=== PATIENT | male | born 1955 | race African-American/Black ===

== ENCOUNTER 2017-02-23 21:24 | Inpatient (IN) | payer SELFPAY ==
[~2017-02-23] VITALS: Ht 172.7 cm; Wt 79.1 kg
[~2017-02-23 21:24] MED LIST: INSU100I3 SQ; INSU3INS3 SQ; LISI10TA7 PO
--- OUTSIDE RECORDS SUMMARY | 2017-02-23 21:29 | XMS REPORT | Continuity of Care Document ---
Author Author [facility] Organization [facility] Address Unknown Phone Unavailable Support Name Relationship Address Phone JEANETTE GONZALEZ APRN Caregiver [address] [place] [address] Unavailable JONATHAN HARMAN MD Caregiver [address] [place] [address] [place] [address] Unavailable JOSE JUAN Next Of Kin Unknown [phone] Insurance Providers Guarantor Gini Juan Address [address] [place] [address] Email [email or web address] Policy Number [id number] Subscriber's Name Gini Juan Relationship 18 Self Group Number [id number] Advance Directives Directive Response Recorded Date/Time Dr Beltre Resuscitation Status Full Code 12/03/16 1:45pm Resuscitation Documents on File No 12/06/16 7:33am DPOA for Healthcare Only No 12/06/16 7:33am Living Will No 12/06/16 7:33am Problems No problem information available. Medications Current Home Medications Medication Dose Units Route Directions Days Qty Instructions Start Date Insulin Aspart (Novolog Flexpen) 1 Unit Pen 30 Unit Sub-Q 15 Min Before Meals 75 12/03/16 Insulin Glargine,Hum.rec.anlog (Lantus Solostar) 1 Unit Pen 40 Unit Sub-Q Bedtime 30 12/03/16 Lisinopril 10 Mg Tablet 1 Tab Oral Daily 30 12/03/16 Social History Social History Problem Response Recorded Date/Time Onset Date Status Reason for Hospitalization COLONOSCOPY 2016 9:55am Not Applicable Not Applicable Chewing Tobacco Status No 2016 7:23am Not Applicable Not Applicable Hx Substance Use No 2016 7:23am Not Applicable Not Applicable Hx Alcohol Use N QUIT 2016 7:23am Not Applicable Not Applicable Has the pt used tobacco in the last 12 months Yes 2016 7:23am Not Applicable Not Applicable Query Response Start Date Stop Date Smoking Status Former smoker Hospital Discharge Instructions Instructions: Care Instructions: I was in the hospital because (patient own words): COLONOSCOPY Discharge Diet: You may resume your usual diet. Discharge Activity: You may resume your usual activity. Follow Up Appointments: No specific follow-up appointment with Dr. Harman is necessary. You can call his office for any questions or concerns ([phone]). Dr. Harman's office will notify you of your results in about 2 weeks. Pending Lab / Results: Will be notified Patient Instructions: Do not drive, operate machinery, drink alcohol, or sign important papers for 24 hours. Expected Signs/Symptoms: You may have some gas discomfort. Notify Physician If: Contact Dr. Harman if you have a fever over 101 degrees, severe abdominal pain, or severe rectal bleeding. During Business Hours:: *In the event of an emergency, call 911 or seek medical care at the nearest emergency room.* During office hours, call Dr. Harman's office at [phone]. After Business Hours:: After hours, please call [facility] at [phone] and have the multiple spindle screw machine operator page Dr. Harman or the covering surgeon. Pain Management/Treatment: You should not have significant pain following the procedure. Wound/Incision Care: No wound care required. Condition at time of discharge: Good Plan of Care Discharge Date 12/06/16 10:20am Prescriptions See Medication Section Functional Status No functional status results. Allergies, Adverse Reactions, Alerts No known allergies. Immunizations Query Response on File Recorded Date/Time Hx Influenza Vaccination No 12/06/16 7:23am Hx Pneumococcal Vaccination No 12/06/16 7:23am Hx Influenza Vaccination No 12/06/16 7:23am Vital Signs Acute Vital Signs Vital Response Date/Time Temperature (Fahrenheit) 97.3 deg F (96.8 - 99.1) 2016 9:36am Temperature (Calculated Celsius) 36.29958 degrees C (36.0 - 37.3) 2016 9:36am Temperature Source Temporal 2016 9:36am Pulse Rate (adult) 92 bpm (60 - 100) 2016 10:20am Respiratory Rate 20 breaths/min (10 - 20) 2016 10:20am O2 Sat by Pulse Oximetry 97 % (90 - 100) 2016 10:20am Oxygen Delivery Method Room Air 2016 10:20am Blood Pressure 115/86 mm Hg 2016 10:20am Blood Pressure Source Automatic Cuff 2016 10:20am Height (Feet) 5 feet 2016 6:50am Height (Inches) 8.00 inches 2016 6:50am Weight (Kilograms) 82.900 kg 2016 6:50am Body Mass Index (BMI) 27.8 2016 6:50am Results Laboratory Results Test Name Result Units Flags Reference Collection Date/Time Result Date/ Time Comments Glucometer 268 mg/dL H 75-110 2016 7:03am 2016 7:09am Procedures Procedure Status Date Provider(s) X-ray exam of knee 1 or 2 Completed 11/12/16 Colonoscopy with polypectomy and biopsy Completed 12/06/16 JONATHAN HARMAN MD Encounters Encounter Location Arrival/Admit Date Discharge/Depart Date Attending Provider Departed [facility] 12/06/16 6:47am 12/06/16 10 :20am JONATHAN HARMAN MD Registered Clinic [facility] 11/12/16 7:31am JEANETTE GONZALEZ APRN
[2017-02-23] MEDS ORDERED: NITROGLYCERIN 0.4 MG SUBLINGUAL TABLET SL PRN (21:45)
[2017-02-23] MEDS ORDERED: ASPIRIN 81 MG CHEWABLE TABLET PO ONE (21:45)
--- NOTE | 2017-02-23 21:48 | ERPDOC ---
Departure Disposition Decision Date: February 24, 2017 Disposition Decision Time: 00:44 Disposition: 02 TO [facility] [place] Impression Impression Impression: Primary Impression: DKA (diabetic ketoacidoses) Diabetes mellitus type: type 1 Diabetes mellitus complication detail: without coma Qualified Codes: E10.10 - Type 1 diabetes mellitus with ketoacidosis without coma Additional Impressions: Pancreatitis Chronicity: acute Pancreatitis type: alcohol induced Acute pancreatitis complication: unspecified Qualified Codes: K85.20 - Alcohol induced acute pancreatitis without necrosis or infection Elevated troponin Alcohol abuse Acute renal failure (ARF) Acute renal failure type: unspecified Qualified Codes: N17.9 - Acute kidney failure, unspecified Severity: Critical Condition: Improved Seen By: Physician only Referrals: JEANETTE GONZALEZ APRN (Family) Problems/Meds/Labs Reviewed?: Yes Medications reviewed and manag: Yes Follow up care ordered?: Yes HPI - Chest Pain General Stated Complaint: CHEST PAIN, DIFF BREATHING Time Seen by Provider: 21:38 Source: patient Exam Limitations: no limitations HPI - Chest Pain Initial Comments 61yo man presents to the ER tonight with CP. Pt is an insulin dependent diabetic with a h/o HTN. He went on a manley (EtOH) 5 days ago, and has not taken his meds since then. Pt c/o cp, fast breathing, heartburn, and general malaise. Occurred At: home Onset/Timing: Gradual, Getting worse Duration: 1 week Pain/Severity Scale: Now & Worst: 8/10 Activities at Onset/Context: other Location: epigastric Quality: burning Modifying Factors: IMPROVES WITH: lying down Associated Symptoms: diaphoresis, fast HR, fatigue, heartburn, nausea/vomiting , shortness of breath Nitro Today/Relief: 0.4 mg x 1, provided by ED Aspirin Treatment Today: 81 mg x 4, provided by ED Hx of Similar Symptoms: No Allergies: Coded Allergies: No Known Allergies (Verified , 09/01/09) Viagra/ED med in past 36 hrs: No Past History Past Medical History Metabolic: diabetes, hypertension Vaccines Hx Influenza Vaccination: No Hx Pneumococcal Vaccination: No Social History Does patient use chewing tobac: No Second Hand Exposure: No Substance Use Type: does not use Last Drink: hours (ago) Review of Systems Constitutional Constitutional: fatigue ENMT Mouth/Throat: dry mouth Cardiovascular Cardiac: chest pain, dyspnea on exertion Rhythm/Rate: tachycardia Pulmonary Respiratory: tachypnea GI Upper Abdomen: nausea General: frequency All other Systems All Other Systems: Reviewed and Negative Physical Exam General General Nourishment: well nourished, well developed, appears stated age, adult , obese, acute distress General Body Habitus: disheveled Vitals and Pain Weight: Kilograms: Height (feet): 5 Height (inches): 8.00 Triage Pain Scale: RN VS reviewed by Provider: Yes Normal Exams: Head: Normocephalic w/o trauma Eyes: Pupils are PERRLA w/ EOMI, No scleral icterus, irritation ENMT: No facial trauma, nasal exudates, pharyngeal erythema Neck: Full range of motion, without adenopathy Lymphatic: No lymphadenopathy Musculoskeletal: No tenderness, or deformity noted Integumentary: No rashes, hives, or bruising noted Neurologic: Patient is alert, and oriented Psychiatric: Patient exhibits, appropriate attention Respiratory (brief) Respiratory: FOUND: clear all fofana, equal bilaterally, symmetrical, NOT FOUND : rales, wheezes Comments tachypnea Cardiovascular (brief) Cardiac: FOUND: regular rhythm, NOT FOUND: click, gallop, murmur, pedal edema, peripheral edema, regular rate (Tachy), rub Capillary Refill: <2 sec Pulses: all distal extremities, equal, strong Abdomen (brief) Abdominal Brief: FOUND: bowel normo active x4, soft, NOT FOUND: distended, hepatosplenomegaly, pulsatile mass, tender Differential Diagnoses Considering: Acute MT, Angina, Costochondritis, Esophageal Spasm, GERD, Pericarditis, Pneumothorax, Pneumonia, PSVT, Pulmonary Edema, Other (DKA; acute intoxication.) Progress Results/Orders Orders Procedure Category Date Status Time Cbc W/Auto LAB 02/23/17 Complete Diff-Reflex Manual 21:45 Bmp - Basic Metabolic LAB 02/23/17 Complete Panel 21:45 Probnp LAB 02/23/17 Complete 21:45 Troponin I W LAB 02/23/17 Complete Hemolysis Index 21:45 INR LAB 02/23/17 Complete 21:45 EKG EKG 02/23/17 Taken 21:45 Chest 1 View RAD 02/23/17 Taken 21:45 Iv Lock (Ed Only) EDM 02/23/17 Transmitted 21:45 Aspirin (Asa) PHA 02/23/17 Complete 21:45 Nitroglycerin PHA 02/23/17 In Process (Nitrostat) 21:45 Procalcitonin LAB 02/23/17 Complete 21:53 Lipase LAB 02/23/17 Complete 21:53 Magnesium LAB 02/23/17 Complete 21:53 Phosphorus LAB 02/23/17 Complete 21:53 Beta-Hydroxybutyrate LAB 02/23/17 Complete Blood 21:53 Nothing By Mouth (Ed EDM 02/23/17 Transmitted Only) 21:53 Normal Saline (Normal PHA 02/23/17 Complete Saline Iv) 21:53 Ondansetron Inj PHA 02/23/17 In Process (Zofran) 22:00 Insulin Regular PHA 02/23/17 Complete (Novolin R) 22:15 Blood Gas, Arterial - LAB 02/23/17 Complete ABG Lactate - Lactic Acid LAB 02/23/17 Complete Lactate - Lactic Acid LAB 02/24/17 Logged 02:56 Bmp - Basic Metabolic LAB 02/23/17 Complete Panel 23:20 Magnesium LAB 02/23/17 Complete 23:20 Phosphorus LAB 02/23/17 Complete 23:20 Beta-Hydroxybutyrate LAB 02/23/17 Complete Blood 23:20 Normal Saline (Normal PHA 02/23/17 Complete Saline Iv) 23:20 Bgm (Ed) EDM 02/24/17 Transmitted 00:20 Normal Saline (Normal PHA 02/24/17 In Process Saline Iv) 00:30 UA, LAB 02/24/17 In Process Dip&Micro(Complete) & 00:33 Lab Results Laboratory Tests Test 02/23/17 21:43 02/23/17 21:50 02/23/17 22:09 02/23/17 22:37 White Blood Count 14.9T/MM3 Red Blood Count 6.34M/MM3 Hemoglobin 15.2GM/DL Hematocrit 44.9% Mean Corpuscular Volume 70.8UM3 Mean Corpuscular Hemoglobin 24.0UUG Mean Corpuscular Hemoglobin Concent 33.9GM/DL RDW Standard Deviation 36.6FL Platelet Count 159T/MM3 Mean Platelet Volume 11.3UM3 Immature Granulocyte % (Auto) % Neutrophils (%) (Auto) % Lymphocytes (%) (Auto) % Monocytes (%) (Auto) % Eosinophils (%) (Auto) % Basophils (%) (Auto) % Absolute Immature Granulocyte (auto T/MM3 Absolute Neutrophils (auto) T/MM3 Absolute Lymphocytes (auto) T/MM3 Absolute Monocytes (auto) T/MM3 Absolute Eosinophils (auto) T/MM3 Absolute Basophils (auto) T/MM3 Neutrophils % (Manual) 94.0% Band Neutrophils % 2.0% Lymphocytes % (Manual) 4.0% Absolute Neutrophils (Manual) 14.0T/MM3 Band Neutrophils # 0.3T/MM3 Lymphocytes # (Manual) 0.6T/MM3 Polychromasia 1+ Anisocytosis 1+ Red Cell Morphology Comment Abnormal Prothromb Time International Ratio 1.00 Turbidity < 20 Sodium Level 120MEQ/L Potassium Level 7.0MEQ/L Chloride Level 77MEQ/L Carbon Dioxide Level 7MEQ/L Anion Gap 36MEQ/L Blood Urea Nitrogen 78.0MG/DL Creatinine 5.0MG/DL Glomerular Filtration Rate Calc 12 BUN/Creatinine Ratio 16RATIO Glucose Level 835MG/DL Calculated Osmolality 296MOSM/KG Calcium Level 8.3MG/DL Icterus Index < 2 Troponin I 0.929ng/ml ZP-Dqc-H-Type Natriuretic Peptide 3480PG/ML Procalcitonin 3.80NG/ML Chemistry Specimen Hemolysis 30 Glucometer > 500mg/dL Phosphorus Level 8.8MG/DL Magnesium Level 2.6MG/DL Lipase 5797U/L B-Hydroxybutyrate 5.60MMOL/L Plasma Lactate 3.8MMOL/L Test 02/23/17 22:40 02/23/17 23:08 02/24/17 00:07 02/24/17 00:33 Arterial Blood pH 7.190 Arterial Blood Partial Pressure CO2 15MMHG Arterial Blood pO2 at Patient Temp 104MMHG Arterial Blood HCO3 6MEQ/L Arterial Blood Total CO2 6.2MEQ/L Arterial Blood Oxygen Saturation 96.0% Arterial Blood Base Excess -20.2MMOL/L Oxygen Delivery Method (LAB) Room air Blood Gas Oxygen Liter Flow Blood Gas Oxygen Percent Given Blood Gas Vent Rate Blood Gas Tidal Volume ML Glucometer > 500mg/dL Turbidity < 20 Sodium Level 124MEQ/L Potassium Level 5.9MEQ/L Chloride Level 86MEQ/L Carbon Dioxide Level 8MEQ/L Anion Gap 30MEQ/L Blood Urea Nitrogen 77.0MG/DL Creatinine 4.6MG/DL Glomerular Filtration Rate Calc 13 BUN/Creatinine Ratio 17RATIO Glucose Level 696MG/DL Calculated Osmolality 296MOSM/KG Calcium Level 7.6MG/DL Phosphorus Level 5.8MG/DL Magnesium Level 2.5MG/DL Icterus Index < 2 Chemistry Specimen Hemolysis < 15 B-Hydroxybutyrate 5.30MMOL/L Urine Collection Type Cleancatch-midstream Urine Color Yellow Urine Turbidity Sl cloudy Urine pH 5.0 Urine Specific Cameron 1.025 Urine Protein 2+ Urine Glucose (UA) 3+ Urine Ketones 2+ Urine Blood 3+ Urine Nitrite Negative Urine Bilirubin 1+ Urine Urobilinogen 0.2EU/DL Urine Leukocyte Esterase Negative Urine RBC Pending Urine WBC Pending Urine Bacteria Pending Medications Current ED Medications Aspirin (ASA) 324 mg O ONCE PO Last administered on 02/23/17 21:56; Start at 21:45; Stop 02/23/17 at 21:46; Status DC Nitroglycerin 0.4 mg 0.4 mg Q5MIN PRN SL CHEST PAIN Last administered on 21:59; Start 02/23/17 at 21:45 Sodium Chloride (Normal Saline IV) 1,000 ml @ 0 mls/hr Q0M ONCE IV Last administered on 02/23/17 21:58; Start 02/23/17 at 21:53; Stop 02/23/17 at 21:55 ; Status DC Ondansetron HCl (Zofran) 4 mg Q6H PRN IV NAUSEA &/OR VOMITING Last administered on 02/23/17 22:18; Start 02/23/17 at 22:00 Insulin Human Regular 11 unit 11 unit O ONCE IV Last administered on 22:20; Start 02/23/17 at 22:15; Stop 02/23/17 at 22:16; Status DC Sodium Chloride 1,000 ml @ 0 mls/hr Q0M ONCE IV Last administered on 23:00; Start 02/23/17 at 23:20; Stop 02/23/17 at 23:22; Status DC Sodium Chloride (Normal Saline IV) 1,000 ml @ 125 mls/hr Q8H ONCE IV ; Start at 00:30; Stop 02/24/17 at 08:29 EKG EKG : Rate: 60-100 Rhythm: sinus Windfall: normal QRS: normal Intervals: normal ST/T: non-specific changes Interpreted by: signing physician Consult/PCP Consult/PCP #1: Physician Contacted: Dr. Prieto Time Called: 21:46 Time of first response: 21:47 Type of discussion: Phone Consult/PCP Discussion Details Will review EKG and call back. Consult/PCP #2: Physician Contacted: Steve Ortez Time Called: 22:21 Time of first response: 22:21 Type of discussion: Phone Consult/PCP Discussion Details Initial Cr of 5.0 not a contraindication to local admission. Complete resuscitation and work up and can make a decision at that time. 0043: Called physician; pt stable for txfr to unit. ZACK JERNIGAN DO February 23, 2017 21:48
[2017-02-23] MEDS ORDERED: NORMAL SALINE 1,000 ML IV ONE ×2 (21:53→23:20)
[2017-02-23 21:55] LABS: HCT - HEMATOCRIT 44.9 % (41-53); HGB - HEMOGLOBIN 15.2 GM/DL (13.5-17.5); MEAN CORPUSCULAR HGB CONC(MCHC 33.9 GM/DL (31-37); MEAN CORPUSCULAR VOLUME 70.8 UM3 (80-100); MEAN PLATELET VOLUME 11.3 UM3 (9.4-12.4); RED BLOOD COUNT 6.34 M/MM3 (4.50-5.90); WBC - WHITE BLOOD COUNT 14.9 T/MM3 (4.5-11.0)
[2017-02-23 21:59] LABS: ANION GAP 36 MEQ/L (5-15); CALCIUM 8.3 MG/DL (8.4-10.2); CHLORIDE 77 MEQ/L (98-107); SODIUM 120 MEQ/L (134-144)
[2017-02-23] MEDS ORDERED: ONDANSETRON 4mg/2ml INJECTION IV PRN (22:00)
[2017-02-23 22:06] LABS: GLOMERULAR FILTRATION RATE 12
[2017-02-23 22:09] LABS: CO2 - CARBON DIOXIDE 7 MEQ/L (22-30)
[2017-02-23 22:10] LABS: BUN/CREATININE RATIO 16 RATIO (6-26)
[2017-02-23 22:11] LABS: PROBNP 3480 PG/ML (0-175)
[2017-02-23 22:12] LABS: GLUCOSE 835 MG/DL (75-110)
[2017-02-23] MEDS ORDERED: INSULIN REGULAR 100 UNIT/ML IV ONE (22:15)
[2017-02-23 22:19] LABS: MAGNESIUM 2.6 MG/DL (1.6-2.3); PHOSPHORUS 8.8 MG/DL (2.5-4.5)
[2017-02-23 22:20] LABS: BAND NEUTROPHILS # 0.3 T/MM3; LYMPHOCYTES # (MANUAL) 0.6 T/MM3 (1-4.8); TOTAL CELLS COUNTED 100 %
[2017-02-23 22:21] LABS: ANISOCYTOSIS 1+; POLYCHROMASIA 1+
--- NOTE | 2017-02-23 22:35 | NUR ---
ABG RT STAFF IN ROOM TO COLLECT ABG
--- NOTE | 2017-02-23 22:55 | NUR ---
STATUS FRIEND PASTORA IN ROOM TO SEE PT
--- NOTE | 2017-02-23 22:57 | NUR ---
STATUS PT REQUESTING TO LEAVE. I EXPLAINED TO PT HE IS VERY SICK. LABS SHOW:HIGH POTASIUM, HIGH BLOOD SUGAR, PANCREATITIS, HIGH PROCALCITONIN. EXPLAINED TO PT IF HE LEAVES HE WILL . PT STILL WANTS TO LEAVE. FRIEND IN ROOM TRYING TO CONVINCE PT TO STAY. DR JERNIGAN IS NOTIFIED
--- NOTE | 2017-02-23 23:00 | NUR ---
DR WARD MAY DISCUSS WITH PT ABOUT HIM WANTING TO LEAVE AMA. AFTER DISCUSSION, PT HAS DECIDED TO STAY.
[2017-02-24] VITALS (31 sets, daily range): BP systolic 134–175; BP diastolic 65–105; PULSE 90–104; RESP 20–43; TEMP 97.4–98.6; O2SAT 94–99; Ht 172.7 cm; Wt 79.1 kg
[2017-02-24 00:22] LABS: ANION GAP 30 MEQ/L (5-15); CALCIUM 7.6 MG/DL (8.4-10.2); CHLORIDE 86 MEQ/L (98-107); MAGNESIUM 2.5 MG/DL (1.6-2.3); PHOSPHORUS 5.8 MG/DL (2.5-4.5); POTASSIUM 5.9 MEQ/L (3.6-5); SODIUM 124 MEQ/L (134-144)
--- NOTE | 2017-02-24 00:25 | NUR ---
UA PT SAT UP AT THE EDGE OF THE BED TO URINATE IN URINAL. PT TOO WEAK TO ACTUALLY STAND. PT WAS ABLE TO STAND TO REMOVE JEANS, BUT SAT ON BED TO URINATE. UA COLLECTED AND SENT TO LAB. PT LAYS BACK ON THE CART AFTERWARDS TO CATCH HIS BREATH. BELONGINGS PLACED IN PT BELONGINGS BAG
[2017-02-24 00:27] LABS: BUN/CREATININE RATIO 17 RATIO (6-26); CREATININE 4.6 MG/DL (0.8-1.5); GLOMERULAR FILTRATION RATE 13
[2017-02-24] MEDS ORDERED: NORMAL SALINE 1,000 ML IV ONE (00:30)
[2017-02-24 00:36] LABS: CO2 - CARBON DIOXIDE 8 MEQ/L (22-30); GLUCOSE 696 MG/DL (75-110)
[2017-02-24 00:41] LABS: BLOOD, URINE 3+ (NEGATIVE); COLOR,URINE YELLOW (YELLOW); LEUKOCYTE ESTERASE ,URINE NEGATIVE (NEGATIVE); NITRITE,URINE NEGATIVE (NEGATIVE); UROBILINOGEN,URINE 0.2 EU/DL (NORMAL)
[2017-02-24 00:48] LABS: BACTERIA,URINE NONE SEEN (NEGATIVE); WBC,URINE NONE SEEN /HPF (0-5)
[2017-02-24] MEDS ORDERED: NS KCL 20 MEQ 1,000 ML IV SCH (01:10)
--- NOTE | 2017-02-24 01:10 | NUR ---
REPORT CALLED REPORT TO JOHNATHAN DAVIDSON
[2017-02-24] MEDS ORDERED: DEXTROSE 50% SYRINGE 50ml (Eq. 1 AMP) IV ONE (01:15)
--- NOTE | 2017-02-24 01:15 | NUR ---
Admit Pt admitted to CCU5 at this time via cart from ED. Accompanied by Plaster Mechanic, Cinthia. Pt able to transfer self from cart to bed via sliding. RR elevated in 30's. Fruity breath observed. Pt A&O and appropriate. Very restless. C/o not being able to sleep for days, immediately requesting sleep aid. C/o stomach pains. VSS.
--- NOTE | 2017-02-24 01:15 | NUR ---
TRANSFER TO ICU #5 PT IS TRANSFERRED TO CCU#5. IVF CONTINUE TO INFUSE. PT REMAINS WITH TACHYPNEA, NPO. PT C/O ABD PAIN RATED 5/10 WHEN HE WAS TRANSFERRING TO ICU.
--- NOTE | 2017-02-24 01:35 | NUR ---
IVF Pt arrived with NS@125 infusing to right AC peripheral IV. During admit process, Dr. Cedeno ordered this bag of fluids to be ran at 500cc/hr. Then change IVF to NS+20KCl@150. Rate increased.
[2017-02-24] MEDS ORDERED: INSULIN REGULAR 100 UNIT in NORMAL SALINE 100 ML IV SCH (01:45)
[2017-02-24] MEDS ORDERED: PANTOPRAZOLE 40mg INJECTION IV ONE (01:45)
[2017-02-24] MEDS: LORAZEPAM 2 MG/ML INJECTION IV PRN ×4 (01:48→21:23)
[2017-02-24 01:52] LABS: ANION GAP 29 MEQ/L (5-15); CALCIUM 7.7 MG/DL (8.4-10.2); CHLORIDE 87 MEQ/L (98-107); POTASSIUM 5.9 MEQ/L (3.6-5); SODIUM 125 MEQ/L (134-144)
[2017-02-24 01:59] LABS: BUN/CREATININE RATIO 18 RATIO (6-26); CREATININE 4.5 MG/DL (0.8-1.5); GLOMERULAR FILTRATION RATE 13
--- NOTE | 2017-02-24 02:03 | HPPDOC ---
HPI - Adult Date DATE: 02/24/17 TIME: 01:49 General Chief Complaint: Chest pain History of Present Illness 61 yo M with PMH of IDDM and HTN presented to the ED with reports of chest and abdominal pain. Patient reports he stopped taking his insulin and checking his blood sugar 5 days ago, he started drinking alcohol all day since then. He reports he was drinking orion and he doesn't know how much. He reports he usually takes Novolog SSI and lantus 40U at night. He reports his BS usually run high in the 300's. He does not know what his last Hgb A1C was and follows with the [facility]. Patient was found to be in DKA in the ED with a glucose of over 800 and a HCO3 of 7. He also had ZAID. Past Medical History Past Medical History IDDM HTN Current Medications Home Meds Reported Medications Lisinopril (Lisinopril) 10 Mg Tablet, 1 TAB PO DAILY, #30 12/03/16 Insulin Aspart (Novolog Flexpen) 1 Unit Pen, 30 UNIT SQ AC15, #75 12/03/16 Insulin Glargine,Hum.rec.anlog (Lantus Solostar) 1 Unit Pen, 40 UNIT SQ HS, #30 12/03/16 Allergies: Coded Allergies: No Known Allergies (Verified , 09/01/09) Family History Family History: non contributory Social History Does patient use chewing tobac: No Second Hand Exposure: No Substance Use Type: does not use Alcohol Intake: 2+ drinks per day Last Drink: hours (ago) Advance Directives: Yes DPOA for Healthcare Only (Felipe Calderaace, friend) Review of Systems Eyes General: DENIES: burning, dryness, erythema, exudate, foreign body sensation, itching, other, pain, photophobia, see HPI, subconjunctival bleed, watering ENMT Ears: DENIES: drainage, erythema, foreign body, other, pain, see HPI Cardiovascular see HPI, DENIES: dyspnea on exertion, hx of rheumatic fever, murmur, other, paroxysmal nocturnal dysp Rhythm/Rate: DENIES: bradycardia, irregular beat, other, palpitations, see HPI , tachycardia Pulmonary Respiratory: DENIES: cough, dyspnea, exposure to TB, hyperventilation, other, pleuritic chest pain, pneumonia hx, see HPI, sputum, tachypnea GI Upper Abdomen: see HPI, DENIES: abdominal swelling, dysphagia, food intolerances, heartburn/indigestion, hematemesis, nausea, other, pain, vomiting Lower Abdomen: DENIES: blood in stool, josé-colored stools, constipation, diarrhea, melena, other, pain, painful BM, see HPI Musculoskeletal General: DENIES: atrophy of muscles, cramps, edema, joint pain, joint swelling , other, pain, see HPI, spasm, tenderness, weakness Lumbar: DENIES: other, pain, see HPI, spasm Integumentary Skin: DENIES: color change, infections, itching, lesion, mole, other, rash, see HPI, sores, tumor, ulcers Neurological General: DENIES: aphasia, ataxia, blackouts, blindness, change in strength, dysarthria, dysesthesia, fainting, headache, memory disturbances, numbness, other, paralysis/paresis, poor coordination, see HPI, seizures, syncope, tics, tingling, tremor, vertigo, weakness Psychiatric Psychiatric: DENIES: anxiety, depression, emotional instability, hallucinations , irritability, memory impairment, nervousness, other, see HPI, suicidal ideation/attempt Endocrine DENIES: heat/cold intolerance, other, polydipsia, polyphagia, see HPI Physical Exam General General Nourishment: cachectic Height (Feet): 5 Height (Inches): 8.00 Respiratory Brief: FOUND: clear all fofana, equal bilaterally Cardiovascular (brief) Cardiac Brief: FOUND: regular rate, regular rhythm Abdomen (brief) Abdominal Brief: FOUND: soft, tender Lymphatic (brief) Lymphatic Brief: NOT FOUND: adenopathy, lymphedema, other Musculoskeletal (brief) Musculoskeletal Brief: NOT FOUND: deformity, extremities move equally, loss of motion, other, spasm, tenderness Integumentary (brief) Integumentary Brief: FOUND: pink, warm Neurologic (brief) Neurological Brief: FOUND: cranial 2-12 intact Neurologic RN Documented GCS Eye Opening: Verbal: Motor: Total: Psychiatric (brief) FOUND: alert, oriented Laboratory Laboratory Tests Test 02/23/17 21:43 02/23/17 21:50 02/23/17 22:09 02/23/17 22:37 White Blood Count 14.9T/MM3 Red Blood Count 6.34M/MM3 Hemoglobin 15.2GM/DL Hematocrit 44.9% Mean Corpuscular Volume 70.8UM3 Mean Corpuscular Hemoglobin 24.0UUG Mean Corpuscular Hemoglobin Concent 33.9GM/DL RDW Standard Deviation 36.6FL Platelet Count 159T/MM3 Mean Platelet Volume 11.3UM3 Immature Granulocyte % (Auto) % Neutrophils (%) (Auto) % Lymphocytes (%) (Auto) % Monocytes (%) (Auto) % Eosinophils (%) (Auto) % Basophils (%) (Auto) % Absolute Immature Granulocyte (auto T/MM3 Absolute Neutrophils (auto) T/MM3 Absolute Lymphocytes (auto) T/MM3 Absolute Monocytes (auto) T/MM3 Absolute Eosinophils (auto) T/MM3 Absolute Basophils (auto) T/MM3 Neutrophils % (Manual) 94.0% Band Neutrophils % 2.0% Lymphocytes % (Manual) 4.0% Absolute Neutrophils (Manual) 14.0T/MM3 Band Neutrophils # 0.3T/MM3 Lymphocytes # (Manual) 0.6T/MM3 Polychromasia 1+ Anisocytosis 1+ Red Cell Morphology Comment Abnormal Prothromb Time International Ratio 1.00 Turbidity < 20 Sodium Level 120MEQ/L Potassium Level 7.0MEQ/L Chloride Level 77MEQ/L Carbon Dioxide Level 7MEQ/L Anion Gap 36MEQ/L Blood Urea Nitrogen 78.0MG/DL Creatinine 5.0MG/DL Glomerular Filtration Rate Calc 12 BUN/Creatinine Ratio 16RATIO Glucose Level 835MG/DL Calculated Osmolality 296MOSM/KG Calcium Level 8.3MG/DL Icterus Index < 2 Troponin I 0.929ng/ml RB-Atv-M-Type Natriuretic Peptide 3480PG/ML Procalcitonin 3.80NG/ML Chemistry Specimen Hemolysis 30 Glucometer > 500mg/dL Phosphorus Level 8.8MG/DL Magnesium Level 2.6MG/DL Lipase 5797U/L B-Hydroxybutyrate 5.60MMOL/L Plasma Lactate 3.8MMOL/L Test 02/23/17 22:40 02/23/17 23:08 02/24/17 00:07 02/24/17 00:33 Arterial Blood pH 7.190 Arterial Blood Partial Pressure CO2 15MMHG Arterial Blood pO2 at Patient Temp 104MMHG Arterial Blood HCO3 6MEQ/L Arterial Blood Total CO2 6.2MEQ/L Arterial Blood Oxygen Saturation 96.0% Arterial Blood Base Excess -20.2MMOL/L Oxygen Delivery Method (LAB) Room air Blood Gas Oxygen Liter Flow Blood Gas Oxygen Percent Given Blood Gas Vent Rate Blood Gas Tidal Volume ML Glucometer > 500mg/dL Turbidity < 20 Sodium Level 124MEQ/L Potassium Level 5.9MEQ/L Chloride Level 86MEQ/L Carbon Dioxide Level 8MEQ/L Anion Gap 30MEQ/L Blood Urea Nitrogen 77.0MG/DL Creatinine 4.6MG/DL Glomerular Filtration Rate Calc 13 BUN/Creatinine Ratio 17RATIO Glucose Level 696MG/DL Calculated Osmolality 296MOSM/KG Calcium Level 7.6MG/DL Phosphorus Level 5.8MG/DL Magnesium Level 2.5MG/DL Icterus Index < 2 Chemistry Specimen Hemolysis < 15 B-Hydroxybutyrate 5.30MMOL/L Urine Collection Type Cleancatch-midstream Urine Color Yellow Urine Turbidity Sl cloudy Urine pH 5.0 Urine Specific [place] 1.025 Urine Protein 2+ Urine Glucose (UA) 3+ Urine Ketones 2+ Urine Blood 3+ Urine Nitrite Negative Urine Bilirubin 1+ Urine Urobilinogen 0.2EU/DL Urine Leukocyte Esterase Negative Urine RBC 5-10/HPF Urine WBC None seen/HPF Urine Amorphous Urates Moderate Urine Bacteria None seen Urine Culture Indicated Cult not indicated Test 02/24/17 01:35 Assessment & Plan Problems: (1) DKA (diabetic ketoacidoses) Status: Acute Qualifiers: Diabetes mellitus type: type 1 Diabetes mellitus complication detail: without coma Qualified Codes: E10.10 - Type 1 diabetes mellitus with ketoacidosis without coma Assessment & Plan: due to noncompliance the past 5 days. Will start pateint on DKA protocal, and monitor electrolytes and replace as needed. Patient to be NPO until his gap closes. Check BMP Q2H overnight and check Hgb A1c. (2) Pancreatitis Status: Acute Qualifiers: Chronicity: acute Pancreatitis type: alcohol induced Acute pancreatitis complication: unspecified Qualified Codes: K85.20 - Alcohol induced acute pancreatitis without necrosis or infection Assessment & Plan: due to drinking. Patient NPO, Dialudid 0.5mg Q3H PRN for pain. (3) Elevated troponin Status: Acute Assessment & Plan: EKG shown to cardiology in the ED. Likely due to stress from DKA and drinking. (4) Acute renal failure (ARF) Status: Acute Qualifiers: Acute renal failure type: unspecified Qualified Codes: N17.9 - Acute kidney failure, unspecified Assessment & Plan: due to dehydration and DKA. Will aggressively fluid resuscitate and follow BMP Q2H overngiht. Monitor UOP and BUN/Cr throughout stay. (5) Alcohol abuse Status: Acute Assessment & Plan: Ativan 1mg Q4H PRN for withdrawal precautions. DVT Prophylaxis: SCD'S Code Status Full Code Hospital Course Summary Disclaimer The hospital course summary below is not to be considered part of the above Progress Note. SOBEIDA MCLAUGHLIN MD February 24, 2017 01:54
[2017-02-24 02:09] LABS: CO2 - CARBON DIOXIDE 9 MEQ/L (22-30); GLUCOSE 685 MG/DL (75-110)
[2017-02-24] MEDS ORDERED: HYDROMORPHONE 2mg/ml INJECTION IV PRN (02:15)
--- NOTE | 2017-02-24 03:33 | NUR ---
Pain Pt c/o abdominal pain. PRN Dilaudid administered.
[2017-02-24 04:01] LABS: HCT - HEMATOCRIT 42.5 % (41-53); HGB - HEMOGLOBIN 14.8 GM/DL (13.5-17.5); MEAN CORPUSCULAR HGB 24.5 UUG (26-34); MEAN CORPUSCULAR HGB CONC(MCHC 34.8 GM/DL (31-37); MEAN CORPUSCULAR VOLUME 70.2 UM3 (80-100); MEAN PLATELET VOLUME 10.5 UM3 (9.4-12.4); RED BLOOD COUNT 6.05 M/MM3 (4.50-5.90); WBC - WHITE BLOOD COUNT 10.8 T/MM3 (4.5-11.0)
[2017-02-24 04:09] LABS: ANION GAP 25 MEQ/L (5-15); CALCIUM 7.5 MG/DL (8.4-10.2); CHLORIDE 92 MEQ/L (98-107); POTASSIUM 5.6 MEQ/L (3.6-5); SODIUM 126 MEQ/L (134-144)
[2017-02-24 04:15] LABS: BUN/CREATININE RATIO 19 RATIO (6-26); CO2 - CARBON DIOXIDE 9 MEQ/L (22-30); CREATININE 4.3 MG/DL (0.8-1.5); GLOMERULAR FILTRATION RATE 14; GLUCOSE 623 MG/DL (75-110)
[2017-02-24 04:28] LABS: BAND NEUTROPHILS # 0.3 T/MM3; LYMPHOCYTES # (MANUAL) 0.2 T/MM3 (1-4.8); NEUTROPHILS #(MANUAL)-ABSOLUTE 10.3 T/MM3 (1.8-7.7); TOTAL CELLS COUNTED 100 %
--- NOTE | 2017-02-24 05:41 | NUR ---
Shift Summary Pt slept off and on between cares. Extremely restless. C/o abdominal pain. PRN Dilaudid administered as well as PRN Ativan for restlessness. Concern for ETOH withdrawal. Pt states his last drink was Tuesday of this week (02/22). RR in the 30's. Otherwise, VSS on RA. At times, pt does not make sense with his words. Continues to request food/water. RN reminds pt of reason behind NPO status. Per Dr. Cedeno, sj for ice chips and sips of water. Insulin gtt continues, currently at 9u/hr. Monitoring closely and following DKA protocol. NS+20KCl@150cc/hr infuses. IV to right AC.
[2017-02-24 05:52] LABS: ANION GAP 22 MEQ/L (5-15); CALCIUM 7.5 MG/DL (8.4-10.2); CHLORIDE 96 MEQ/L (98-107); CO2 - CARBON DIOXIDE 10 MEQ/L (22-30); GLUCOSE 526 MG/DL (75-110); POTASSIUM 5.4 MEQ/L (3.6-5); SODIUM 128 MEQ/L (134-144)
[2017-02-24 07:30] LABS: ANION GAP 21 MEQ/L (5-15); CALCIUM 7.9 MG/DL (8.4-10.2); CHLORIDE 100 MEQ/L (98-107); CO2 - CARBON DIOXIDE 12 MEQ/L (22-30); GLUCOSE 418 MG/DL (75-110); POTASSIUM 5.7 MEQ/L (3.6-5); SODIUM 133 MEQ/L (134-144)
[2017-02-24 07:36] LABS: BUN/CREATININE RATIO 21 RATIO (6-26); GLOMERULAR FILTRATION RATE 15
--- NOTE | 2017-02-24 08:10 | DI ---
Indication: ITS.REASON: Chest pain and shortness of air PROCEDURE: CHEST 1 VIEW: Encounter: Initial Comparison: None Findings: Lungs are mildly hypoinflated. There is some slightly increased markings in the right base. No focal lobar consolidation. No pleural effusion or pneumothorax. Heart size and mediastinal contours are within normal limits. Pulmonary vascularity appears normal. Impression: Faint right lower lobe airspace opacity could represent early or atypical pneumonia versus atelectasis. .
[2017-02-24] MEDS: PANTOPRAZOLE 40mg INJECTION IV SCH (08:34)
[2017-02-24 09:35] LABS: ANION GAP 18 MEQ/L (5-15); CALCIUM 7.9 MG/DL (8.4-10.2); CHLORIDE 103 MEQ/L (98-107); CO2 - CARBON DIOXIDE 13 MEQ/L (22-30); GLUCOSE 335 MG/DL (75-110); POTASSIUM 5.8 MEQ/L (3.6-5); SODIUM 134 MEQ/L (134-144)
[2017-02-24 09:40] LABS: BUN/CREATININE RATIO 21 RATIO (6-26); CREATININE 4.1 MG/DL (0.8-1.5); GLOMERULAR FILTRATION RATE 15
[2017-02-24] MEDS: NORMAL SALINE 1,000 ML IV SCH ×5 (10:17→23:35)
--- NOTE | 2017-02-24 10:35 | NUR ---
SUMMARY/DISCHARGE PT A&OX3. VSS. DENIES CP/SOA. PT AMBULATORY WITH EVEN GAIT. PROVIDED DRUG TEACHING SHEET FOR TIKOSYN WITH MORNING MEDICATIONS ANSWERING ALL QUESTIONS. REVIEWED DISCHARGE INSTRUCTIONS WITH PT, ANSWERING ALL QUESTIONS. PT COMMITS TO FOLLOW-UP APPT WITH DR. ARCOS AND FOLLOW-UP WITH DR. DONAHUE FOR SLEEP STUDY/CONSULT. PRESCRIPTIONS TRANSMITTED TO [facility], PT COMMITS TO PICK-UP. PT AMBULATORY TO ED ENTRANCE WITH RN ASSIST AND WALKS TO HIS PERSONAL CAR WITHOUT INCIDENT. Addendum: 02/24/17 at 1055 by NARESH STALLINGS RN THIS IS INCORRECT PT.
--- NOTE | 2017-02-24 11:07 | NUR ---
IVF CHANGED BY DR. RAYMUNDO TO NS, RATE 175, DUE TO POTASSIUM LEVEL NOT DECREASING.
[2017-02-24 11:36] LABS: ANION GAP 20 MEQ/L (5-15); BUN/CREATININE RATIO 19 RATIO (6-26); CHLORIDE 103 MEQ/L (98-107); CO2 - CARBON DIOXIDE 13 MEQ/L (22-30); CREATININE 4.5 MG/DL (0.8-1.5); GLOMERULAR FILTRATION RATE 13; GLUCOSE 312 MG/DL (75-110); POTASSIUM 4.7 MEQ/L (3.6-5); SODIUM 136 MEQ/L (134-144)
--- NOTE | 2017-02-24 12:41 | NUR ---
POTASSIUM/IVF REPORTED 4.[address] RAYMUNDO AND REQUESTED ORDER FOR POTASSIUM TO BE ADDED TO IVF. RECEIVED ORDER TO CONTINUE NS, INCREASING RATE TO 250 MLS/HR. NO FURTHER ORDERS RECEIVED.
--- NOTE | 2017-02-24 13:08 | NUR ---
STATUS-ETOH USE PT REPORTS THAT HE IS "FINISHED WITH ALCOHOL EFFECTIVE LAST TUESDAY."
--- NOTE | 2017-02-24 13:42 | NUR ---
CM CM IN TO VISIT WITH PT. PT HAVING IV STARTED. CM PROVIDED CONTACT INFORMATION AND UPDATED PT WHITEBOARD. NURSE AWARE TO CALL CM SHOULD NEEDS ARISE.
[2017-02-24 14:25] LABS: ANION GAP 17 MEQ/L (5-15); BUN/CREATININE RATIO 20 RATIO (6-26); CALCIUM 7.9 MG/DL (8.4-10.2); CHLORIDE 104 MEQ/L (98-107); CO2 - CARBON DIOXIDE 16 MEQ/L (22-30); CREATININE 4.3 MG/DL (0.8-1.5); GLOMERULAR FILTRATION RATE 14; GLUCOSE 172 MG/DL (75-110); POTASSIUM 4.2 MEQ/L (3.6-5); SODIUM 137 MEQ/L (134-144)
--- NOTE | 2017-02-24 14:46 | NUR ---
STATUS/BGM REPORTED, TO DR. RAYMUNDO, BGM 108, POTASSIUM 4.7, ANION GAP 17. REPORTED THAT RN HAD TURNED OFF INSULIN FOR REASSESSMENT. REQUESTED POTASSIUM FOR IVF. REPORTED OUTPUT OF 625 CC FOR SHIFT TO DATE. RECEIVED ORDER TO CONTINUE IVF NS AT 250 MLS/HR.
--- NOTE | 2017-02-24 15:10 | NUR ---
SHIVAM REFERRAL: DRINKING AND NOT TAKING INSULIN. THIS WORKER SPOKE WITH RN. SHE SAID PT WAS GIVEN IV ATIVAN RECENTLY. SHE SAID PRIOR TO THIS HE HAD TAKEN OUT HIS IV. THIS WORKER AND RN ATTEMPTED TO SPEAK WITH PT; HOWEVER, PT WAS ASLEEP AND WAS NOT ABLE TO BE AROUSED. THIS WORKER WILL ATTEMPT AGAIN LATER.
[2017-02-24 15:32] LABS: ANION GAP 16 MEQ/L (5-15); BUN/CREATININE RATIO 19 RATIO (6-26); CHLORIDE 106 MEQ/L (98-107); CO2 - CARBON DIOXIDE 16 MEQ/L (22-30); CREATININE 4.5 MG/DL (0.8-1.5); GLOMERULAR FILTRATION RATE 13; GLUCOSE 128 MG/DL (75-110); POTASSIUM 4.6 MEQ/L (3.6-5); SODIUM 138 MEQ/L (134-144)
[2017-02-24] MEDS: INSULIN ASPART 100 UNIT/ML SQ SCH (17:15)
--- NOTE | 2017-02-24 17:42 | PNPDOC ---
Subjective Date DATE: 02/24/17 TIME: 17:21 Subjective Seen in ICU and patient was minimally browsable until this afternoon. This only improved slightly as he was able to answer some questions appropriately but still lacked cognitive function to provide vital information. Confesses to drinking "a drum" of alcohol at a time Have read and agree with history and assessment, review of systems and assessment and plan by tele-hospitalist: below is included portions of her note: Chief Complaint: Chest pain History of Present Illness 61 yo M with PMH of IDDM and HTN presented to the ED with reports of chest and abdominal pain. Patient reports he stopped taking his insulin and checking his blood sugar 5 days ago, he started drinking alcohol all day since then. He reports he was drinking orion and he doesn't know how much. He reports he usually takes Novolog SSI and lantus 40U at night. He reports his BS usually run high in the 300's. He does not know what his last Hgb A1C was and follows with the [facility]. Patient was found to be in DKA in the ED with a glucose of over 800 and a HCO3 of 7. He also had ZAID. Past Medical History Adult Past Medical History Past Medical History IDDM HTN Current Medications Home Meds Reported Medications Lisinopril (Lisinopril) 10 Mg Tablet, 1 TAB PO DAILY, #30 12/03/16 Insulin Aspart (Novolog Flexpen) 1 Unit Pen, 30 UNIT SQ AC15, #75 12/03/16 Insulin Glargine,Hum.rec.anlog (Lantus Solostar) 1 Unit Pen, 40 UNIT SQ HS, #30 12/03/16 Allergies: Coded Allergies: No Known Allergies (Verified , 09/01/09) Family History Family History: non contributory Social History Does patient use chewing tobac: No Second Hand Exposure: No Substance Use Type: does not use Alcohol Intake: 2+ drinks per day Last Drink: hours (ago) Advance Directives: Yes DPOA for Healthcare Only (Felipe Charles, friend) Review of Systems Review of Systems Eyes General: DENIES: burning, dryness, erythema, exudate, foreign body sensation, itching, other, pain, photophobia, see HPI, subconjunctival bleed, watering ENMT Ears: DENIES: drainage, erythema, foreign body, other, pain, see HPI Cardiovascular see HPI, DENIES: dyspnea on exertion, hx of rheumatic fever, murmur, other, paroxysmal nocturnal dysp Rhythm/Rate: DENIES: bradycardia, irregular beat, other, palpitations, see HPI , tachycardia Pulmonary Respiratory: DENIES: cough, dyspnea, exposure to TB, hyperventilation, other, pleuritic chest pain, pneumonia hx, see HPI, sputum, tachypnea GI Upper Abdomen: see HPI, DENIES: abdominal swelling, dysphagia, food intolerances, heartburn/indigestion, hematemesis, nausea, other, pain, vomiting Lower Abdomen: DENIES: blood in stool, josé-colored stools, constipation, diarrhea, melena, other, pain, painful BM, see HPI Musculoskeletal General: DENIES: atrophy of muscles, cramps, edema, joint pain, joint swelling , other, pain, see HPI, spasm, tenderness, weakness Lumbar: DENIES: other, pain, see HPI, spasm Integumentary Skin: DENIES: color change, infections, itching, lesion, mole, other, rash, see HPI, sores, tumor, ulcers Neurological General: DENIES: aphasia, ataxia, blackouts, blindness, change in strength, dysarthria, dysesthesia, fainting, headache, memory disturbances, numbness, other, paralysis/paresis, poor coordination, see HPI, seizures, syncope, tics, tingling, tremor, vertigo, weakness Psychiatric Psychiatric: DENIES: anxiety, depression, emotional instability, hallucinations , irritability, memory impairment, nervousness, other, see HPI, suicidal ideation/attempt Endocrine DENIES: heat/cold intolerance, other, polydipsia, polyphagia, see HPI Laboratory Laboratory Tests Test 02/23/17 21:43 02/23/17 21:50 02/23/17 22:09 02/23/17 22:37 White Blood Count 14.9T/MM3 Red Blood Count 6.34M/MM3 Hemoglobin 15.2GM/DL Hematocrit 44.9% Mean Corpuscular Volume 70.8UM3 Mean Corpuscular Hemoglobin 24.0UUG Mean Corpuscular Hemoglobin Concent 33.9GM/DL RDW Standard Deviation 36.6FL Platelet Count 159T/MM3 Mean Platelet Volume 11.3UM3 Immature Granulocyte % (Auto) % Neutrophils (%) (Auto) % Lymphocytes (%) (Auto) % Monocytes (%) (Auto) % Eosinophils (%) (Auto) % Basophils (%) (Auto) % Absolute Immature Granulocyte (auto T/MM3 Absolute Neutrophils (auto) T/MM3 Absolute Lymphocytes (auto) T/MM3 Absolute Monocytes (auto) T/MM3 Absolute Eosinophils (auto) T/MM3 Absolute Basophils (auto) T/MM3 Neutrophils % (Manual) 94.0% Band Neutrophils % 2.0% Lymphocytes % (Manual) 4.0% Absolute Neutrophils (Manual) 14.0T/MM3 Band Neutrophils # 0.3T/MM3 Lymphocytes # (Manual) 0.6T/MM3 Polychromasia 1+ Anisocytosis 1+ Red Cell Morphology Comment Abnormal Prothromb Time International Ratio 1.00 Turbidity < 20 Sodium Level 120MEQ/L Potassium Level 7.0MEQ/L Chloride Level 77MEQ/L Carbon Dioxide Level 7MEQ/L Anion Gap 36MEQ/L Blood Urea Nitrogen 78.0MG/DL Creatinine 5.0MG/DL Glomerular Filtration Rate Calc 12 BUN/Creatinine Ratio 16RATIO Glucose Level 835MG/DL Calculated Osmolality 296MOSM/KG Calcium Level 8.3MG/DL Icterus Index < 2 Troponin I 0.929ng/ml MO-Pjs-P-Type Natriuretic Peptide 3480PG/ML Procalcitonin 3.80NG/ML Chemistry Specimen Hemolysis 30 Glucometer > 500mg/dL Phosphorus Level 8.8MG/DL Magnesium Level 2.6MG/DL Lipase 5797U/L B-Hydroxybutyrate 5.60MMOL/L Plasma Lactate 3.8MMOL/L Test 02/23/17 22:40 02/23/17 23:08 02/24/17 00:07 02/24/17 00:33 Arterial Blood pH 7.190 Arterial Blood Partial Pressure CO2 15MMHG Arterial Blood pO2 at Patient Temp 104MMHG Arterial Blood HCO3 6MEQ/L Arterial Blood Total CO2 6.2MEQ/L Arterial Blood Oxygen Saturation 96.0% Arterial Blood Base Excess -20.2MMOL/L Oxygen Delivery Method (LAB) Room air Blood Gas Oxygen Liter Flow Blood Gas Oxygen Percent Given Blood Gas Vent Rate Blood Gas Tidal Volume ML Glucometer > 500mg/dL Turbidity < 20 Sodium Level 124MEQ/L Potassium Level 5.9MEQ/L Chloride Level 86MEQ/L Carbon Dioxide Level 8MEQ/L Anion Gap 30MEQ/L Blood Urea Nitrogen 77.0MG/DL Creatinine 4.6MG/DL Glomerular Filtration Rate Calc 13 BUN/Creatinine Ratio 17RATIO Glucose Level 696MG/DL Calculated Osmolality 296MOSM/KG Calcium Level 7.6MG/DL Phosphorus Level 5.8MG/DL Magnesium Level 2.5MG/DL Icterus Index < 2 Chemistry Specimen Hemolysis < 15 B-Hydroxybutyrate 5.30MMOL/L Urine Collection Type Cleancatch-midstream Urine Color Yellow Urine Turbidity Sl cloudy Urine pH 5.0 Urine Specific [place] 1.025 Urine Protein 2+ Urine Glucose (UA) 3+ Urine Ketones 2+ Urine Blood 3+ Urine Nitrite Negative Urine Bilirubin 1+ Urine Urobilinogen 0.2EU/DL Urine Leukocyte Esterase Negative Urine RBC 5-10/HPF Urine WBC None seen/HPF Urine Amorphous Urates Moderate Urine Bacteria None seen Urine Culture Indicated Cult not indicated Test 02/24/17 01:35 Objective Vital Signs Vital signs Vital Signs Date Time Temp Pulse Resp B/P Pulse Ox O2 Delivery O2 Flow Rate FiO2 02/24/17 16:00 100 30 156/78 97 Room Air 02/24/17 08:00 97.4 Telemetry Rhythm: Sinus Rhythm Height (Feet): 5 Height (Inches): 8.00 Weight (Kilograms): 76.100 General General Appearance: Disorientated, Confused, Cooperative, Mild Distress Comments Mild respiratory distress improved as glucose normalized and anionic gap closed Eyes (Brief) Eyes: FOUND: EOMI, PERRL, NOT FOUND: scleral icterus Neck (Brief) Neck: NOT FOUND: JVD, nuchal rigidity Respiratory (Brief) Respiratory: FOUND: clear all fofana, equal bilaterally Cardiovascular (Brief) Cardiac: FOUND: regular rate, regular rhythm, NOT FOUND: murmur Abdomen (Brief) Abdominal: FOUND: BS normo active x4, soft, NOT FOUND: tender Extremities (Brief) Extremity : Side: Bilateral Extremity: leg Extremity Finding: NOT FOUND: edema, pain Musculoskeletal (Brief) Musculoskeletal: FOUND: extremities move equally, NOT FOUND: deformity Integumentary (Brief) Integumentary: FOUND: dry, pink, warm Neurologic (Brief) Neurological: FOUND: cranial 2-12 intact, motor Psychiatric (Brief) Psychiatric: NOT FOUND: alert, oriented Laboratory Laboratory Laboratory Tests 02/23/17 21:43 02/24/17 00:07 02/24/17 01:35 02/24/17 03:45 02/24/17 05:29 02/24/17 07:10 02/24/17 09:09 02/24/17 11:17 02/24/17 13:51 02/24/17 15:18 Laboratory Tests 02/23/17 21:43 02/24/17 03:45 EKG No cardiac strain per my interpretation Sepsis Diagnostic Criteria Sepsis Confirmed/Suspected Infection: No Assessment & Plan Problems: (1) DKA (diabetic ketoacidoses) Status: Acute Qualifiers: Diabetes mellitus type: type 1 Diabetes mellitus complication detail: without coma Qualified Codes: E10.10 - Type 1 diabetes mellitus with ketoacidosis without coma Assessment & Plan: Noncompliant DKA patient exacerbated by alcoholic binge drinking of the last 3 or more days. I've been following throughout the day in the ICU and monitoring. Insulin drip has been without incident. Have changed IV fluids to normal saline at this time. Anion gap is essentially closed precalculated gap 17. Glucose is normalized and thus I am transferring patient out of the intensive care unit. District continuing IV insulin and placing patient on what we believe to be his home regimen. Patient can eat and will be monitored for trends (2) Pancreatitis Status: Acute Qualifiers: Chronicity: acute Pancreatitis type: alcohol induced Acute pancreatitis complication: unspecified Qualified Codes: K85.20 - Alcohol induced acute pancreatitis without necrosis or infection Assessment & Plan: Repeating hepatic panel and will get morning amylase lipases well. (3) Elevated troponin Status: Acute Assessment & Plan: Repeating troponin now and again in the morning patient has been without cardiac incident (4) Acute renal failure (ARF) Status: Acute Qualifiers: Acute renal failure type: unspecified Qualified Codes: N17.9 - Acute kidney failure, unspecified Assessment & Plan: Patient has been getting aggressive IV fluids. These were increased to 250 mL per hour earlier today and patient after 6 L appears clinically recovered but has an osmolality of 294. Despite 6 L easily had 600 ML output. Will hydrate until he reaches an osmolality of 280 at which point I anticipate he will begin making adequate urine. (5) Alcohol abuse Status: Acute Assessment & Plan: I have added 10 mg of Librium Q6 hours to the occasional Ativan 1mg Q4H PRN for withdrawal precautions. Assessment The 5 minutes of critical care time log thus far without procedures. At this point I believe patient is stable enough to transition to a regular floor but will continue to monitor his lab work closely Code Status Full Code Hospital Course Summary Disclaimer The hospital course summary below is not to be considered part of the above Progress Note. QUAN RAYMUNDO MD February 24, 2017 17:24
[2017-02-24 18:10] LABS: LIPASE 1459 U/L (23-300)
[2017-02-24] MEDS: INSULIN ASPART 100 UNIT/ML SQ PRN ×2 (18:50→20:28)
--- NOTE | 2017-02-24 19:41 | NUR ---
STATUS PT RESTED WITH EYES CLOSED DURING MOST OF SHIFT, AWAKENING FOR CARES AND THEN QUICKLY GOING BACK TO SLEEP. BP ELEVATIONS DURING PT REPOSITIONING. PT DENIES PAIN. PRN ATIVAN GIVEN WHEN PT AWAKENED AND PULLED OUT LT WRIST IV SITE, PT COULD NOT REPORT WHY HE DID IT EXCEPT THAT "ALL THE LINES WERE BOTHERING HIM." PT USES URINAL. PT IS RESTING IN BED, EYES OPEN.
[2017-02-24] MEDS: CHLORDIAZEPOXIDE 5 MG CAPSULE PO SCH (21:20)
[2017-02-24] MEDS: INSULIN GLARGINE 100 UNIT/ML SQ SCH (21:22)
[2017-02-24 21:58] LABS: ANION GAP 20 MEQ/L (5-15); BUN/CREATININE RATIO 19 RATIO (6-26); CALCIUM 7.8 MG/DL (8.4-10.2); CHLORIDE 106 MEQ/L (98-107); CO2 - CARBON DIOXIDE 11 MEQ/L (22-30); CREATININE 4.7 MG/DL (0.8-1.5); GLOMERULAR FILTRATION RATE 13; GLUCOSE 286 MG/DL (75-110); POTASSIUM 5.1 MEQ/L (3.6-5); SODIUM 137 MEQ/L (134-144)
--- NOTE | 2017-02-24 22:16 | NUR ---
Pt has been incontinent of urine and stool. Pt has been bathed and linens have been changed x2.
[2017-02-25] VITALS (29 sets, daily range): BP systolic 147–201; BP diastolic 75–137; PULSE 93–106; RESP 16–39; TEMP 97.5; O2SAT 91–98
[2017-02-25] MEDS: INSULIN ASPART 100 UNIT/ML SQ PRN ×6 (00:09→20:39)
[2017-02-25] MEDS: LORAZEPAM 2 MG/ML INJECTION IV PRN (01:26)
[2017-02-25] MEDS: CHLORDIAZEPOXIDE 5 MG CAPSULE PO SCH ×4 (02:06→21:36)
--- NOTE | 2017-02-25 02:16 | NUR ---
Pt is up to the commode every 15 minutes or so. States he has to have a BM but does not have a BM most of the time. Pt did have 2 small diarrhea stools. Pt is saying things that do not make sense. At times he seems to be hallucinating. Possibly talking in his sleep? He states that is seems like [place] the [place].
[2017-02-25] MEDS: NORMAL SALINE 1,000 ML IV SCH ×4 (03:38→21:30)
[2017-02-25] MEDS: HYDROMORPHONE 2mg/ml INJECTION IV PRN ×3 (03:39→17:01)
--- NOTE | 2017-02-25 04:16 | NUR ---
Pt states he wants to go home. When asked why he states that he wants to eat. RN explained why he is NPO. When asked if there is anyone at home to help him he states there is not. RN then explains that he is too sick to go home yet.
[2017-02-25 05:52] LABS: ALBUMIN 3.2 G/DL (3.5-5.0); ALBUMIN/GLOBULIN RATIO 1.3 RATIO (1.1-2.2); ALKALINE PHOSPHATASE 89 U/L (38-126); ALT (SGPT) 137 U/L (21-72); ANION GAP 16 MEQ/L (5-15); AST (SGOT) 144 U/L (17-59); BUN/CREATININE RATIO 20 RATIO (6-26); CALCIUM 7.6 MG/DL (8.4-10.2); CHLORIDE 110 MEQ/L (98-107); CO2 - CARBON DIOXIDE 13 MEQ/L (22-30); CREATININE 4.6 MG/DL (0.8-1.5); GLOMERULAR FILTRATION RATE 13; GLUCOSE 236 MG/DL (75-110); POTASSIUM 4.8 MEQ/L (3.6-5); SODIUM 139 MEQ/L (134-144); TOTAL PROTEIN 5.6 G/DL (6.3-8.2)
--- NOTE | 2017-02-25 06:26 | NUR ---
Pt calmed down after he was given dilaudid. Pt always denies pain but using the flacc scale he appears to be having some significant pain. Pt is also drooling since he was given the first librium.
[2017-02-25] MEDS: INSULIN ASPART 100 UNIT/ML SQ SCH ×3 (07:45→17:15)
[2017-02-25] MEDS: THIAMINE 200mg/2ml INJECTION IV SCH (09:09)
[2017-02-25] MEDS: PANTOPRAZOLE 40mg INJECTION IV SCH (09:09)
[2017-02-25] MEDS: FOLIC ACID 5 MG/ML INJECTION IV SCH (09:10)
--- NOTE | 2017-02-25 11:13 | NUR ---
DM Screen Diet Order: NPO Lab: Hgb A1C 11.3 Due to pt's current medical condition DM screen is deferred at this time. RD available at ext [phone]
--- NOTE | 2017-02-25 12:19 | NUR ---
SW FOLLOW UP SPOKE WITH PT, ATTEMPTED TO DISCUSSED ALCOHOL TREATMENT. PT WAS DROWSEY, AND KEPT FALLING ASLEEP, SO CONVERSATION WAS HALTED AND THIS WORKER WILL NEED TO FOLLOW UP AGAIN WITH HIM. HOWEVER, BEFORE THE CONVERSATION ENDED, PT DID STATE THAT HE IS HERE BECAUSE HE "DRANK MASSIVE AMOUNTS" BECAUSE HE WAS NOT TAKING CARE OF HIMSELF. HE SAID HE WAS NOT TAKING HIS DIABETIC MEDS BECAUSE HE FORGETS. HE SAID HE THINKS HE FORGETS BECAUSE OF HIS DRINKING. HE STATED THIS WAS NOT A SUICIDE ATTEMPT. HE SAID HE HAS HIS CHILDREN TO LIVE FOR (HIS CHILDREN LIVE OUT OF STATE) AND KILLING HIMSELF WAS NOT HIS INTENT. UPDATED RN ABOUT THIS CONVERSATION. THIS WORKER WILL ATTEMPT AGAIN LATER.
[2017-02-25 12:20] LABS: ANION GAP 18 MEQ/L (5-15); BUN/CREATININE RATIO 21 RATIO (6-26); CALCIUM 7.9 MG/DL (8.4-10.2); CHLORIDE 114 MEQ/L (98-107); CO2 - CARBON DIOXIDE 11 MEQ/L (22-30); CREATININE 4.5 MG/DL (0.8-1.5); GLOMERULAR FILTRATION RATE 13; GLUCOSE 240 MG/DL (75-110); POTASSIUM 5.5 MEQ/L (3.6-5); SODIUM 143 MEQ/L (134-144)
--- NOTE | 2017-02-25 17:55 | NUR ---
BOSS/FRIEND ROME MILLAN CALLED TO SPEAK WITH PT, . RN VERIFIED THAT PT WOULD ACCEPT CALL AND PT SPOKE TO BOSS. PT THEN ASKED THIS RN TO SPEAK WITH [place] AND ANSWER ANY QUESTIONS. SHORTY APPEARED TO HAVE GENUINE CONCERN, FURTHER STATING HE WAS A "FRIEND." HE ASKED ABOUT PT AND WAS INTERESTED IN PT DIAGNOSIS, CARES AND LOS. RN ANSWERED QUESTIONS WITH INFORMATION AVAILABLE AT THIS TIME. SHORTY REPORTS HE WILL FOLLOW-UP ON PT DAILY.
--- NOTE | 2017-02-25 18:00 | NUR ---
TRANSFER PT TO HALLWAY IN WHEELCHAIR IN PREPARATION OF NEED TO MOVE INTO CUSTODIAL DURING TORNADO WARNING.
--- NOTE | 2017-02-25 18:50 | NUR ---
RETURN PT TO POST TORNADO WARNING. PT A&O TO PERSON AND PLACE.
--- NOTE | 2017-02-25 18:59 | PNPDOC ---
Subjective Date DATE: 02/25/17 TIME: 18:48 Subjective Patient slept through a majority of the morning however was more alert and oriented today. IV fluids were interrupted briefly for reevaluation and patient does still complain of thirst. He denies shakiness and nervousness or any feelings that he would associate with cessation from alcohol Objective Vital Signs Vital signs Vital Signs Date Time Temp Pulse Resp B/P Pulse Ox O2 Delivery O2 Flow Rate FiO2 02/25/17 18:01 23 02/25/17 16:00 103 02/25/17 16:00 173/115 98 Room Air 02/25/17 09:20 97.5 Telemetry Rhythm: Sinus Rhythm Height (Feet): 5 Height (Inches): 8.00 Weight (Kilograms): 80.300 General General Appearance: Alert, Orientated x 3, Cooperative Eyes (Brief) Eyes: FOUND: EOMI, PERRL, NOT FOUND: scleral icterus Neck (Brief) Neck: NOT FOUND: JVD, nuchal rigidity Respiratory (Brief) Respiratory: FOUND: clear all fofana, equal bilaterally Cardiovascular (Brief) Cardiac: FOUND: regular rate, regular rhythm, NOT FOUND: pedal edema Abdomen (Brief) Abdominal: FOUND: BS normo active x4, distended, soft Extremities (Brief) Extremity : Side: Bilateral Extremity Finding: NOT FOUND: edema Integumentary (Brief) Integumentary: FOUND: dry, pink, warm Neurologic (Brief) Neurological: FOUND: cranial 2-12 intact, motor, sensory Psychiatric (Brief) Psychiatric: FOUND: alert, attentive, normal affect, oriented Laboratory Laboratory Laboratory Tests 02/23/17 21:43 02/24/17 00:07 02/24/17 01:35 02/24/17 03:45 02/24/17 05:29 02/24/17 07:10 02/24/17 09:09 02/24/17 11:17 02/24/17 13:51 02/24/17 15:18 02/24/17 21:41 02/25/17 05:17 02/25/17 11:56 Laboratory Tests 02/23/17 21:43 02/24/17 03:45 Radiology Sending patient to CT exam of Abdo pelvis without contrast for further assessment of the abdomen also performing renal ultrasound Sepsis Diagnostic Criteria Sepsis Confirmed/Suspected Infection: No Assessment & Plan Problems: (1) Acute renal failure (ARF) Status: Acute Qualifiers: Acute renal failure type: unspecified Qualified Codes: N17.9 - Acute kidney failure, unspecified Assessment & Plan: This has become the primary concern as the patient's BUN and creatinine have not improved after greater than 8 L of fluid. I've discussed this with Dr. Claudia Keith in nephrology. She has stated that it is possible for this to improve at this point is most likely acute tubular necrosis however she is recommended that we monitor urine output in the event that he becomes oliguric that he will need direct nephrology intervention. She is on this weekend at multiple sites in [place]. My appreciation to her in advance (2) DKA (diabetic ketoacidoses) Status: Acute Qualifiers: Diabetes mellitus type: type 1 Diabetes mellitus complication detail: without coma Qualified Codes: E10.10 - Type 1 diabetes mellitus with ketoacidosis without coma Assessment & Plan: Noncompliant DKA patient exacerbated by alcoholic binge drinking of the last 3 or more days. DKA is resolved however diabetes is still ongoing and appears fairly well-managed in-hospital this far (3) Pancreatitis Status: Acute Qualifiers: Chronicity: acute Pancreatitis type: alcohol induced Acute pancreatitis complication: unspecified Qualified Codes: K85.20 - Alcohol induced acute pancreatitis without necrosis or infection Assessment & Plan: Appears to be improving however will get a CT of the abdomen for better understanding (4) Elevated troponin Status: Acute Assessment & Plan: Troponin reached the apex of 2 which would've been in response to his distress at time of arrival. We will also get an echo cardiogram to see if the alcoholic induced type II DE has created any wall motion abnormalities are decreased ejection fraction (5) Alcohol abuse Status: Acute Assessment & Plan: Continuing to get 10 mg of Librium Q6 hours to the occasional Ativan 1mg Q4H PRN for withdrawal precautions. Assessment The 5 minutes of critical care time log thus far without procedures. At this point I believe patient is stable enough to transition to a regular floor but will continue to monitor his lab work closely Code Status Full Code Hospital Course Summary Disclaimer The hospital course summary below is not to be considered part of the above Progress Note. Hospital Course Summary 02/25/2017 lack of responsiveness of the acute renal failure is concerning and I've talked to Dr. Claudia Keith further studies and continuing with treatment regimen. Alcoholic pancreatitis appears clinically responsive but will get CT abdomen QUAN RAYMUNDO MD February 25, 2017 18:51
[2017-02-25 20:11] LABS: ANION GAP 19 MEQ/L (5-15); BUN/CREATININE RATIO 21 RATIO (6-26); CALCIUM 8.5 MG/DL (8.4-10.2); CHLORIDE 113 MEQ/L (98-107); CO2 - CARBON DIOXIDE 13 MEQ/L (22-30); CREATININE 4.1 MG/DL (0.8-1.5); GLOMERULAR FILTRATION RATE 15; GLUCOSE 199 MG/DL (75-110); POTASSIUM 4.2 MEQ/L (3.6-5); SODIUM 145 MEQ/L (134-144)
[2017-02-25] MEDS ORDERED: LABETALOL 100mg/20ml INJECTION IV PRN (20:30)
[2017-02-25] MEDS: INSULIN GLARGINE 100 UNIT/ML SQ SCH (21:36)
--- NOTE | 2017-02-25 22:20 | NUR ---
TRANSFER FROM CCU 5 TO MEDICAL RM [address] RAYMUNDO REVIEWED PT'S LAB EARLIER THIS HS, VERBALIZED TO THIS RN THAT PT MAY TRANSFER AFTER CT AND ULTRASOUND COMPLETE, DENIES NEED FOR NOTIFICATION TONIGHT. PT IN NO ACUTE DISTRESS AT THIS TIME.
--- NOTE | 2017-02-25 22:20 | NUR ---
TRANSFER PT TRANSFERRED FROM CCU TO ROOM 142 @ 2220, PT ORIENTED TO ROOM AND SURROUNDINGS. IV IN THE LT WRIST AT 200 MLS/HR.
[2017-02-26] MEDS: NORMAL SALINE 1,000 ML IV SCH ×5 (00:38→21:25)
[2017-02-26 04:02] VITALS: BP 168/106; PULSE 106; RESP 18; TEMP 97.4; O2SAT 98
[2017-02-26] MEDS: CHLORDIAZEPOXIDE 5 MG CAPSULE PO SCH ×4 (04:06→21:27)
[2017-02-26] MEDS: INSULIN ASPART 100 UNIT/ML SQ PRN ×2 (04:06→21:29)
--- NOTE | 2017-02-26 04:57 | NUR ---
SUMMARY PT ALERT WITH SOME CONFUSION. TRANSFERS WITH ASSIST OF 2. ADEQUATE OUTPUT FOR SHIFT. IV IN THE RT WRIST WITH NS @ 200 MLS/HR, SECOND IV SIGHT IN THE RT AC. DENIES PAIN. DENIES SOA.
[2017-02-26 05:50] LABS: ANION GAP 18 MEQ/L (5-15); BUN/CREATININE RATIO 22 RATIO (6-26); CALCIUM 8.5 MG/DL (8.4-10.2); CHLORIDE 114 MEQ/L (98-107); CO2 - CARBON DIOXIDE 14 MEQ/L (22-30); CREATININE 3.8 MG/DL (0.8-1.5); GLOMERULAR FILTRATION RATE 16; GLUCOSE 202 MG/DL (75-110); SODIUM 146 MEQ/L (134-144)
[2017-02-26 09:18] VITALS: BP 165/96; PULSE 99; RESP 16; TEMP 97.8; O2SAT 97
[2017-02-26] MEDS: PANTOPRAZOLE 40mg INJECTION IV SCH (09:37)
[2017-02-26] MEDS: INSULIN ASPART 100 UNIT/ML SQ SCH ×3 (09:37→18:49)
[2017-02-26] MEDS: THIAMINE 200mg/2ml INJECTION IV SCH (09:38)
[2017-02-26] MEDS: FOLIC ACID 5 MG/ML INJECTION IV SCH (09:38)
[2017-02-26 12:55] VITALS: BP 169/98; PULSE 105; RESP 16; TEMP 96.4; O2SAT 97
--- NOTE | 2017-02-26 15:39 | NUR ---
LIBRIUM PT WAS EXPLAINED ABOUT THE LIBRIUM'S USE DURING MEDICATION ADMINISTRATION. THEN, PT REFUSED TO TAKE IT CHARTED. ALSO, PT REFUSED TO THE DOSE FOR THE AFTERNOON. PT STATED, "I DON'T HAVE ANXIETY OR ALCOHOL WITHDRAWAL."
[2017-02-26 16:03] VITALS: BP 170/103; PULSE 101; RESP 18; TEMP 97.1; O2SAT 98
--- NOTE | 2017-02-26 17:03 | PNPDOC ---
Subjective Date DATE: 02/26/17 TIME: 16:40 Subjective Mr. Espinosa is alert, conversant and pleasant. He states feeling extremely hungry and believes he had not eaten for a few days before arrival to hospital due to his binge drinking. He states that he went from drinking approximately half of the 5th to a 5th daily to drinking the large bottle of EJ orion to having one of the full bottles possibly 2/5 in size daily during his binge. States feeling remarkably better at this time and that he has had several episodes where he is tried to discontinue drinking and been through AA I spoke with his son at [facility], and brought him up to date on his father situation that he is largely recovered from the diabetic ketoacidosis and acute pancreatitis secondary to his alcoholism, that his father had a type to myocardial infarction secondary to his binge, and that his biggest issue at this time is seeing if his kidney function will largely recover. He seemed to understand this quite well Objective Vital Signs Vital signs Vital Signs Date Time Temp Pulse Resp B/P Pulse Ox O2 Delivery O2 Flow Rate FiO2 02/26/17 16:03 97.1 101 18 170/103 98 Room Air Telemetry Rhythm: Sinus Rhythm Height (Feet): 5 Height (Inches): 8.00 Weight (Kilograms): 79.900 General General Appearance: Alert, Orientated x 3, Cooperative Eyes (Brief) Eyes: FOUND: EOMI, PERRL, NOT FOUND: scleral icterus Neck (Brief) Neck: FOUND: nuchal rigidity, NOT FOUND: JVD Respiratory (Brief) Respiratory: FOUND: clear all fofana, equal bilaterally Cardiovascular (Brief) Cardiac: FOUND: regular rate, regular rhythm Abdomen (Brief) Abdominal: FOUND: BS normo active x4, distended, soft, NOT FOUND: hepatosplenomegaly, tender Extremities (Brief) Extremity : Side: Bilateral Extremity: leg Extremity Finding: NOT FOUND: edema Integumentary (Brief) Integumentary: FOUND: dry, pink, warm Neurologic (Brief) Neurological: FOUND: cranial 2-12 intact, motor, sensory Psychiatric (Brief) Psychiatric: FOUND: alert, attentive, normal affect, oriented Laboratory Laboratory Laboratory Tests 02/24/17 21:41 02/25/17 05:17 02/25/17 11:56 02/25/17 19:41 02/26/17 04:44 Radiology No report from virtual radiology at this time. By my own interpretation I see some residual fluid in the abdomen especially around the pancreas not as much as I had expected. Liver appears to be appropriate in size without cirrhotic appearance. Kidneys appear of appropriate size. Some calcifications within the descending aorta and iliac arteries and otherwise nothing of note Sepsis Diagnostic Criteria Sepsis Confirmed/Suspected Infection: No Assessment & Plan Problems: (1) Acute renal failure (ARF) Status: Acute Qualifiers: Acute renal failure type: unspecified Qualified Codes: N17.9 - Acute kidney failure, unspecified Assessment & Plan: Patient's urine output is now exceeding the input and this is reassuring. The BUN has fallen below 4 for the 1st time since admission. Continue fluids to observe improvement (2) DKA (diabetic ketoacidoses) Status: Acute Qualifiers: Diabetes mellitus type: type 1 Diabetes mellitus complication detail: without coma Qualified Codes: E10.10 - Type 1 diabetes mellitus with ketoacidosis without coma Assessment & Plan: DKA is resolved however patient is now having some hypoglycemia secondary to being on a insulin regimen as he is transitioning back to an ADA diet (3) Alcoholic myopathy Status: Acute Assessment & Plan: Appears to be improving clinically. Echocardiogram is pending a read, however I would not be too inclined to accept reduced ejection fraction as irreversible at this early stage (4) Pancreatitis Status: Acute Qualifiers: Chronicity: acute Pancreatitis type: alcohol induced Acute pancreatitis complication: unspecified Qualified Codes: K85.20 - Alcohol induced acute pancreatitis without necrosis or infection Assessment & Plan: Less acute than expected by my own interpretation CT however will appreciate Dr. Benji Swartz (or other reading radiologist) assessment. I've spoken to the patient with his son present on the phone and patient and I agree that he is unlikely to survive another episode of this magnitude (5) Alcohol abuse Status: Acute Assessment & Plan: I will start decreasing the Librium and will observe from withdrawal symptoms. PRN Ativan will remain Assessment CORRECTIONAL NOTE: previous note that said "The 5" was meant to be "35 minutes of critical care time" on previous note of 02/24/2017. Patient appears to be making good recovery in all areas although renal is recovering less speedily than I would hope. Code Status Full Code Hospital Course Summary Disclaimer The hospital course summary below is not to be considered part of the above Progress Note. Hospital Course Summary 02/25/2017 lack of responsiveness of the acute renal failure is concerning and I've talked to Dr. Claudia Keith further studies and continuing with treatment regimen. Alcoholic pancreatitis appears clinically responsive but will get CT abdomen QUAN RAYMUNDO MD February 26, 2017 16:47
[2017-02-26] MEDS: CALCIUM CARBONATE 500mg Chewable TAB PO PRN (19:32)
--- NOTE | 2017-02-26 19:39 | NUR ---
SUMMARY PT IS ALERT AND ORIENTED X3. THIS MORNING HE WAS A LITTLE UPSET BUT AFTER ANSWERING ALL HIS QUESTIONS ABOUT HIS DISEASE PROCESS AND MEDICATIONS HE FEELS MUCH BETTER. AFTER HE WAS PLEASANT AND COOPERATIVE WITH TREATMENTS. PT WAS NPO" SIPS AND CHIPS THIS MORNING. LATER, HE WAS ADVANCED TO CLEAR LIQUID DIET AND FOR DINNER PT WAS ADVANCED TO CONSISTENT CARB 2200 FÉLIX. TODAY HE HAD SOME LOW BLOOD SUGAR CHARTED. IN THE AFTERNOON THE NOVOLOG WAS HOLD BECAUSE OF THE LOW BLOOD SUGAR CHARTED AND GIVEN AFTER DINNER CHARTED. BED ALARM WAS IN PLACE TODAY.
[2017-02-26 20:41] VITALS: BP 164/87; PULSE 101; RESP 16; TEMP 95.9; O2SAT 99
[2017-02-26] MEDS: INSULIN GLARGINE 100 UNIT/ML SQ SCH (21:28)
[2017-02-26 23:16] VITALS: BP 155/95; PULSE 99; RESP 18; TEMP 96.2; O2SAT 98
[2017-02-27] VITALS (8 sets, daily range): BP systolic 144–185; BP diastolic 91–112; PULSE 95–103; RESP 16–24; TEMP 96.7–97.7; O2SAT 96–99
--- NOTE | 2017-02-27 02:28 | NUR ---
Chart Check 24 hour chart check completed
[2017-02-27] MEDS: NORMAL SALINE 1,000 ML IV SCH ×5 (02:41→23:16)
[2017-02-27] MEDS: CHLORDIAZEPOXIDE 5 MG CAPSULE PO SCH ×4 (02:45→21:28)
[2017-02-27] MEDS: INSULIN ASPART 100 UNIT/ML SQ PRN ×2 (04:06→21:29)
--- NOTE | 2017-02-27 05:00 | NUR ---
STATUS PATIENT HAD BGM 54 AT 0047. GRAPE JUICE AND 1/2 TURKEY SANDWICH WAS GIVEN. PATIENT 'S BGM 185 t 0400. INSULIN WAS GIVEN PER SLIDING SCALE. NO BM DURING NIGHT.CONTINUE TO MONITOR.
[2017-02-27 06:05] LABS: ANION GAP 10 MEQ/L (5-15); BUN/CREATININE RATIO 20 RATIO (6-26); CALCIUM 8.1 MG/DL (8.4-10.2); CHLORIDE 115 MEQ/L (98-107); CO2 - CARBON DIOXIDE 19 MEQ/L (22-30); CREATININE 2.6 MG/DL (0.8-1.5); GLOMERULAR FILTRATION RATE 25; GLUCOSE 192 MG/DL (75-110); POTASSIUM 3.2 MEQ/L (3.6-5); SODIUM 144 MEQ/L (134-144)
--- NOTE | 2017-02-27 06:50 | NUR ---
STATUS PATIENT ALERT AND ORIENTEDX3.ON ROOM AIR. DENIES PAIN,CHEST PAIN,SOA,OR N/V. ADEQUATE URINARY OUTPUT FORM MCKEON CATHETER. PATIENT SLEPT OFF AND ON DURING NIGHT. CALL LIGHT WITHIN REACH .ON BED ALARM .CONTINUE TO MONITOR.
[2017-02-27] MEDS: CALCIUM CARBONATE 500mg Chewable TAB PO PRN ×3 (09:54→16:33)
[2017-02-27] MEDS: PANTOPRAZOLE 40mg INJECTION IV SCH (09:55)
[2017-02-27] MEDS: INSULIN ASPART 100 UNIT/ML SQ SCH ×2 (09:56→12:49)
[2017-02-27] MEDS: FOLIC ACID 5 MG/ML INJECTION IV SCH (11:13)
[2017-02-27] MEDS: THIAMINE 200mg/2ml INJECTION IV SCH (11:14)
--- NOTE | 2017-02-27 11:40 | NUR ---
PHYSICIAN CONTACT DR. RAYMUNDO IN ROOM FOR PT EVAL/ASSMT
--- NOTE | 2017-02-27 13:07 | DI ---
Indication: ITS.REASON: pancreatitis and AKF PROCEDURE: CT ABD/PELVIS W/O CONTRAST: Encounter: Initial Comparison: None Technique: Axial CT images were performed through the abdomen and pelvis without intravenous contrast. Coronal and sagittal two-dimensional reformats. Automated Exposure Control and Iterative Reconstruction dose reducing techniques were utilized. Findings: Small pleural effusions. The liver is diffusely fatty infiltrated. Gallbladder is unremarkable. Spleen appears normal. Pancreas is grossly normal. Adrenal glands and kidneys appear normal. Bladder is decompressed with a Ferraro catheter. Small amount of free pelvic fluid. No evidence of a bowel obstruction. The appendix is normal. Small amount of fluid along the right paracolic gutter. Bone windows show no acute findings. Impression: 1. Small pleural effusions and ascites could be due to acute inflammation or mild volume overload. Acute pancreatitis could cause this appearance although there is no specific inflammation around the pancreas itself. Otherwise no acute disease process seen in the abdomen or pelvis. 2. Hepatic steatosis. There is a preliminary report by [facility] radiologic. .
--- NOTE | 2017-02-27 13:22 | DI ---
Indication: ITS.REASON: AKF PROCEDURE: US RENAL: Encounter: Initial Comparison: CT abdomen and pelvis from the same date Technique: Grayscale and color Doppler sonographic imaging of both kidneys was performed. FINDINGS: Both kidneys are present with normal cortical thickness and echogenicity. No evidence for collecting system dilatation, contour deforming mass, nephrolithiasis, or abnormal perinephric fluid collection. The right kidney measures 11.8 cm in length, and the left kidney measures 11.8 cm in length. IMPRESSION: Normal renal sonogram. There is a preliminary report by [facility]. .
--- NOTE | 2017-02-27 16:59 | NUR ---
PHYSICIAN CONTACT DR. VALLES IN ROOM FOR PT EVAL R/T ACCU CHECK RESULTS
--- NOTE | 2017-02-27 18:23 | NUR ---
STATUS PT BEGAN SHIFT STATING HE WAS GOING TO LEAVE TODAY! THROUGHOUT SHIFT, HAS BECOME MORE APPRECIATIVE AND VERBAL ABOUT THE HELP HE IS RECEIVING BY BEING IN HOSPITAL. HAS DENIED NEED FOR PAIN MEDS THIS SHIFT. SEE BLOOD SUGAR DOCUMENTATION WELL NEW DOCTOR'S ORDERS R/T BLOOD SUGAR. PT HAS GOODLY AMOUNT OF URINE OUTPUT THIS SHIFT. HAVING BM'S WELL.
[2017-02-27] MEDS: POTASSIUM CHLORIDE 20 MEQ TABLET PO SCH (18:37)
--- NOTE | 2017-02-27 20:17 | PNPDOC ---
Subjective Date DATE: 02/27/17 TIME: 20:02 Subjective Mr. Espinosa looks good. He states he feels good and is grateful to be on the planet. He has no new problems at this point but would really like his Ferraro catheter out. This afternoon nursing had noted that he was having some hypoglycemia again and his home insulin rate was decreased while he is in hospital. Objective Vital Signs Vital signs Vital Signs Date Time Temp Pulse Resp B/P Pulse Ox O2 Delivery O2 Flow Rate FiO2 02/27/17 16:25 96.7 02/27/17 16:10 102 24 172/92 98 02/27/17 11:48 Room Air Telemetry Rhythm: Sinus Rhythm Height (Feet): 5 Height (Inches): 8.00 Weight (Kilograms): 78.900 General General Appearance: Alert, Orientated x 3, Cooperative Eyes (Brief) Eyes: FOUND: EOMI, PERRL, NOT FOUND: scleral icterus Neck (Brief) Neck: FOUND: midline, NOT FOUND: JVD, nuchal rigidity Respiratory (Brief) Respiratory: FOUND: clear all fofana, equal bilaterally, NOT FOUND: rales, wheezes Cardiovascular (Brief) Cardiac: FOUND: regular rate, regular rhythm, NOT FOUND: pedal edema Abdomen (Brief) Abdominal: FOUND: BS normo active x4, soft, NOT FOUND: tender Extremities (Brief) Extremity : Side: Bilateral Extremity: leg Extremity Finding: NOT FOUND: edema Integumentary (Brief) Integumentary: FOUND: dry, pink, warm Neurologic (Brief) Neurological: FOUND: cranial 2-12 intact, motor, sensory Psychiatric (Brief) Psychiatric: FOUND: alert, attentive, normal affect, oriented Laboratory Laboratory Laboratory Tests 02/26/17 04:44 02/27/17 04:[address] report of abdomen reveals : 1. Small pleural effusions and ascites could be due to acute inflammation or mild volume overload. Acute pancreatitis could cause this appearance although there is no specific inflammation around the pancreas itself. Otherwise no acute disease process seen in the abdomen or pelvis. 2. Hepatic steatosis. Sepsis Diagnostic Criteria Sepsis Confirmed/Suspected Infection: No Assessment & Plan Problems: (1) Acute renal failure (ARF) Status: Acute Qualifiers: Acute renal failure type: with acute tubular necrosis Qualified Codes: N17.0 - Acute kidney failure with tubular necrosis Assessment & Plan: Dramatic improvement in the acute renal failure. This is indicative of tubular necrosis secondary to the DKA and alcoholic injury as well as hypoperfusion during his binge (2) DKA (diabetic ketoacidoses) Status: Acute Qualifiers: Diabetes mellitus type: type 1 Diabetes mellitus complication detail: without coma Qualified Codes: E10.10 - Type 1 diabetes mellitus with ketoacidosis without coma Assessment & Plan: DKA is resolved however patient is continuing to have hypoglycemic episodes. It appears that his home diet is not as controlled as his carbohydrate moderate diet is in-house (3) Alcoholic myopathy Status: Acute Assessment & Plan: Echocardiogram is pending. Anticipate some decrease in ejection fraction due to the acute nature of the alcoholic cardio myopathy (4) Pancreatitis Status: Acute Qualifiers: Chronicity: acute Pancreatitis type: alcohol induced Acute pancreatitis complication: unspecified Qualified Codes: K85.20 - Alcohol induced acute pancreatitis without necrosis or infection Assessment & Plan: Dr. Jesus Lozano's interpretation correlates to my own read of the abdominal CT *pat self on back*. I will add hepatic steatosis to the diagnostic list (5) Alcohol abuse Status: Acute Assessment & Plan: Patient has weaned himself off of the remaining Librium. It remains on the list as well as the Ativan but I do not think he will be requesting this for the remainder of the stay Assessment CORRECTIONAL NOTE: previous note that said "The 5" was meant to be "35 minutes of critical care time" on previous note of 02/24/2017. Patient appears to be making good recovery in all areas although renal is recovering less speedily than I would hope. Code Status Full Code Hospital Course Summary Disclaimer The hospital course summary below is not to be considered part of the above Progress Note. Hospital Course Summary 02/27/2017 patient's renal function has made significant improvement in the last 2 metabolic panels. Anticipate this last active problem to be close to within normal limits and perhaps dischargeable tomorrow. He will definitely need follow-up metabolic panel at one weeks time when he seizes primary care physician 02/25/2017 lack of responsiveness of the acute renal failure is concerning and I've talked to Dr. Claudia Keith further studies and continuing with treatment regimen. Alcoholic pancreatitis appears clinically responsive but will get CT abdomen QUAN RAYMUNDO MD February 27, 2017 20:06
[2017-02-27] MEDS: INSULIN GLARGINE 100 UNIT/ML SQ SCH (21:28)
[2017-02-28] VITALS: BP 160/99; PULSE 100; RESP 16; TEMP 96.8; O2SAT 99
[2017-02-28] MEDS: INSULIN ASPART 100 UNIT/ML SQ PRN ×3 (00:29→15:09)
[2017-02-28] MEDS: CHLORDIAZEPOXIDE 5 MG CAPSULE PO SCH ×2 (03:00→08:56)
[2017-02-28 04:00] VITALS: BP 178/103; PULSE 102; RESP 16; TEMP 96.7; O2SAT 98
[2017-02-28] MEDS: NORMAL SALINE 1,000 ML IV SCH ×2 (04:32→08:58)
[2017-02-28 05:01] VITALS: BP 148/86; PULSE 98; RESP 16; TEMP 96.7; O2SAT 98
[2017-02-28 05:48] LABS: ANION GAP 11 MEQ/L (5-15); BUN/CREATININE RATIO 14 RATIO (6-26); CALCIUM 7.9 MG/DL (8.4-10.2); CHLORIDE 117 MEQ/L (98-107); CO2 - CARBON DIOXIDE 23 MEQ/L (22-30); CREATININE 2.4 MG/DL (0.8-1.5); GLOMERULAR FILTRATION RATE 28; GLUCOSE 130 MG/DL (75-110); POTASSIUM 3.4 MEQ/L (3.6-5); SODIUM 151 MEQ/L (134-144)
--- NOTE | 2017-02-28 06:50 | NUR ---
STATUS PATIENT ALERT AND ORIENTEDX3. ON ROOM AIR. DENIES PAIN,CHEST PAIN,SOA,OR N/V. PATIENT REFUSED LIBRIUM. PATIENT AMBULATED TO BATHROOM WITH ONE STANDBY ASSIST. PATIENT HAD BEEN TRIED TO GO TO BATHROOM WITHOUT CALLING NURSES. ADEQUATE URINARY OUTPUT. PATIENT HAD HIGH BLOOD SUGAR DURING SHIFT. INSULIN WAS GIVEN PER SLIDING SCALE ORDER. CALL LIGHT WITHIN REACH. CONTINUE TO MONITOR.
[2017-02-28] MEDS: INSULIN ASPART 100 UNIT/ML SQ SCH ×3 (07:54→18:04)
[2017-02-28] MEDS: POTASSIUM CHLORIDE 20 MEQ TABLET PO SCH (07:54)
[2017-02-28 08:00] VITALS: BP 154/98; PULSE 103; PULSE 13; RESP 18; TEMP 96.6; O2SAT 98
[2017-02-28] MEDS: FOLIC ACID 5 MG/ML INJECTION IV SCH (08:56)
[2017-02-28] MEDS: PANTOPRAZOLE 40mg INJECTION IV SCH (08:57)
[2017-02-28] MEDS: THIAMINE 200mg/2ml INJECTION IV SCH (08:57)
[2017-02-28] MEDS: CALCIUM CARBONATE 500mg Chewable TAB PO PRN (09:11)
[2017-02-28] MEDS ORDERED: POTASSIUM CHLORIDE 40 MEQ in D5W 1,000 ML IV SCH (09:30)
[2017-02-28] MEDS ORDERED: THIAMINE 100 MG TABLET PO ONE (09:30)
[2017-02-28 09:59] LABS: MAGNESIUM 1.3 MG/DL (1.6-2.3); PHOSPHORUS 2.2 MG/DL (2.5-4.5)
[2017-02-28] MEDS: MAGNESIUM SULFATE 1 G in D5W 100 ML IV SCH ×2 (10:42→12:28)
--- NOTE | 2017-02-28 11:50 | NUR ---
CM CM IN TO VISIT WITH PT, HE IS ASLEEP. CM UPDATED WHITEBOARD AND PROVIDED CONTACT INFORMATION.
[2017-02-28 12:00] VITALS: BP 154/99; PULSE 95; RESP 17; TEMP 97.2; O2SAT 97
[2017-02-28] MEDS: PHOSPHORUS 250 MG TABLET PO SCH ×2 (12:27→18:04)
--- NOTE | 2017-02-28 13:29 | NUR ---
MNT r/t DM1 Diet: [id number]; A1c: 11.3; Home insulin: Novolog, per SS; Lantus 30 units HS. DM 1 x 30 years. States that he has gone through several [facility]-sponsored DM ed programs, and understands diabetes and does not have any questions. States he previously wrote down everything he ate & counted carb grams and gave insulin doses based on carb intake, but he got tired of that. Now he "just eats" and does not take notice of carbs. He states that most of the time his BG is high. States that he considers carbs to be the enemy. RD reminded patient that two things can cause high blood sugar: too many carbs and not enough carbs. Rd suggested that the enemy is hyperglycemia and carbs can be used to control blood glucose. Meal tray was delivered which was used to practice carb counting. RD gave contact information.
[2017-02-28 16:00] VITALS: BP 141/96; PULSE 96; RESP 17; TEMP 98.1; O2SAT 98
[2017-02-28] MEDS ORDERED: CHLORDIAZEPOXIDE 5 MG CAPSULE PO SCH (16:00)
--- NOTE | 2017-02-28 17:51 | NUR ---
SHIFT SUMMARY GINI'S BS HAVE FLUCTUATED TODAY FROM LOW 69 THIS MORNING UP TO 253 THIS AFTERNOON. HAVE BEEN GIVING INSULIN BEFORE MEALS AND PER SLIDING SCALE ORDERED. PT HAS ELECTROLYTE IMBALANCES THAT ARE BEING TREATED WITH MEDICATIONS IV. PT WAS FRUSTRATED TODAY BECAUSE ACCORDING TO HIM DR RAYMUNDO SAID HE WAS GOING TO HOME TODAY. DR GONZALEZ WHO IS THE HOSPITALIST WORKING WITH PT TODAY WAS ASKED TO COME SPEAK TO PT AND THEY CAME TO THE AGREEMENT THAT AFTER LAB WORK IS REPEATED THIS AFTERNOON SHE WILL CONSIDER DISMISSING PT. PT AGREED WITH THIS. HE ALSO RECEIVED EDUCATION TODAY ON A DIABETIC DIET BY [employer] MA[employer]. PT IS A&OX3 AND WALKS AND GETS AROUND W/O ANY ISSUES. HE REFUSED TAKING A SHOWER TODAY BECAUSE HE THOUGHT HE WAS GOING HOME. WILL CONTINUE TO MONITOR HIS BLOOD SUGARS AND ELECTROLYTES.
[2017-02-28 18:12] LABS: ANION GAP 12 MEQ/L (5-15); BUN/CREATININE RATIO 12 RATIO (6-26); CALCIUM 7.9 MG/DL (8.4-10.2); CHLORIDE 114 MEQ/L (98-107); CO2 - CARBON DIOXIDE 20 MEQ/L (22-30); CREATININE 2.1 MG/DL (0.8-1.5); GLOMERULAR FILTRATION RATE 32; GLUCOSE 263 MG/DL (75-110); MAGNESIUM 1.6 MG/DL (1.6-2.3); POTASSIUM 3.5 MEQ/L (3.6-5); SODIUM 146 MEQ/L (134-144)
[2017-02-28] MEDS ORDERED: CHLO10CA6 PO (19:05)
[2017-02-28] MEDS ORDERED: FOLI1TAB15 PO (19:05)
[2017-02-28] MEDS ORDERED: POTA500T PO (19:05)
[2017-02-28] MEDS ORDERED: OMEP20CA10 PO (19:05)
[2017-02-28] MEDS ORDERED: THIA100T13 PO (19:05)
--- NOTE | 2017-02-28 19:53 | DSPDOC ---
General Date Date DATE: 02/28/17 TIME: 19:19 Attending Physician Connie Babb MD Admitting Physician Connie Babb MD Consulting Physician Admitting Diagnosis DKA Discharge Diagnosis DKA Acute renal failure/ATN Acute pancreatitis, alcoholic Chronic alcohol abuse Diabetes mellitus, uncontrolled Hyponatremia Hypomagnesemia Hypokalemia Troponin leak Procedures Echocardiogram-report pending Laboratory Laboratory Tests Test 02/27/17 08:12 02/27/17 11:54 02/27/17 16:02 02/27/17 16:18 Glucometer 109mg/dL (75-110) 134mg/dL (75-110) 45mg/dL (75-110) 46mg/dL (75-110) Test 02/27/17 17:26 02/27/17 19:59 02/28/17 00:19 02/28/17 03:38 Glucometer 153mg/dL (75-110) 245mg/dL (75-110) 337mg/dL (75-110) 186mg/dL (75-110) Test 02/28/17 05:12 02/28/17 05:15 02/28/17 10:01 02/28/17 12:16 Turbidity < 20 (0-20) Sodium Level 151MEQ/L (134-144) Potassium Level 3.4MEQ/L (3.6-5) Chloride Level 117MEQ/L (98-107) Carbon Dioxide Level 23MEQ/L (22-30) Anion Gap 11MEQ/L (5-15) Blood Urea Nitrogen 33.0MG/DL (9-20) Creatinine 2.4MG/DL (0.8-1.5) Glomerular Filtration Rate Calc 28 BUN/Creatinine Ratio 14RATIO (6-26) Glucose Level 130MG/DL (75-110) Calculated Osmolality 299MOSM/KG (261-280) Calcium Level 7.9MG/DL (8.4-10.2) Icterus Index < 2 (0-7) Chemistry Specimen Hemolysis < 15 (0-25) Phosphorus Level 2.2MG/DL (2.5-4.5) Magnesium Level 1.3MG/DL (1.6-2.3) Glucometer 69mg/dL (75-110) 75mg/dL (75-110) Test 02/28/17 15:02 02/28/17 16:12 02/28/17 18:00 Glucometer 253mg/dL (75-110) 151mg/dL (75-110) Turbidity < 20 (0-20) Sodium Level 146MEQ/L (134-144) Potassium Level 3.5MEQ/L (3.6-5) Chloride Level 114MEQ/L (98-107) Carbon Dioxide Level 20MEQ/L (22-30) Anion Gap 12MEQ/L (5-15) Blood Urea Nitrogen 26.0MG/DL (9-20) Creatinine 2.1MG/DL (0.8-1.5) Glomerular Filtration Rate Calc 32 BUN/Creatinine Ratio 12RATIO (6-26) Glucose Level 263MG/DL (75-110) Calculated Osmolality 295MOSM/KG (261-280) Calcium Level 7.9MG/DL (8.4-10.2) Magnesium Level 1.6MG/DL (1.6-2.3) Icterus Index < 2 (0-7) Chemistry Specimen Hemolysis < 15 (0-25) White count on 02/23 (admission) 14.9, hemoglobin 15.2. Blood gas 7.19/15/104/6 with O2 saturation 96% on room air. Admission chemistries include sodium of 120, potassium 7.0, bicarbonate 7, anion gap 36, creatinine 5.0, BUN 78, lipase 5797. Liver enzymes on 02/25 demonstrated bilirubin 0.4, AST 144, ALT 137, and alkaline phosphatase 89. ProBNP 3480 on admission, troponin 0.929 on admission with peak 2.27 the following day. A1C 11.3 Radiology Chest x-ray and admission revealed hypoinflated lung fofana with slight increased markings at the bases. Renal sonogram on 02/25 demonstrated normal-sized kidneys without evidence of obstruction, nephrolithiasis, perinephric fluid collection, or mass. CT of the abdomen/pelvis without contrast on 02/25 demonstrated the gallbladder to be unremarkable, diffuse fatty liver, no focal pancreatic abnormalities, normal adrenal glands, and normal kidneys. Small pleural effusions and ascites were reported in addition to hepatic steatosis. History of Present Illness 61 yo M with PMH of IDDM and HTN presented to the ED with reports of chest and abdominal pain. Patient reports he stopped taking his insulin and checking his blood sugar 5 days ago, he started drinking alcohol all day since then. He reports he was drinking orion and he doesn't know how much. He reports he usually takes Novolog SSI and lantus 40U at night. He reports his BS usually run high in the 300's. He does not know what his last Hgb A1C was and [facility] Patient was found to be in DKA in the ED with a glucose of over 800 and a HCO3 of 7. He also had ZAID. Hospital Course Patient was admitted to the intensive care unit and treated with DKA protocol including IV fluids, IV insulin, frequent electrolytes, electrolyte replacement , and hourly blood sugars. A1c was significantly elevated at 11.3. Patient was seen by the dietitian throughout the hospitalization. DKA stabilized quickly and he was converted to subcutaneous insulin on 02/24. Hypoglycemia evolved later in the hospital course with good dietary control in place. Ultimately the patient was discharged on home doses of insulin with instructions to monitor blood sugars 4 times daily and take readings to his next office visit to permit adjustment of outpatient insulin. Hopefully alcohol cessation will assist in managing blood sugars as well. Pancreatitis and acute renal failure also present on admission with pancreatitis attributed to alcohol use and acute renal failure due to ATN from pancreatitis/dehydration/hypotension with presentation. Pancreatitis was treated symptomatically. Creatinine remained elevated for several days before slow decline began. Multiple electrolyte abnormalities were seen throughout the hospitalization with typical hyponatremia/hyperkalemia in conjunction with metabolic acidosis of DKA on admission but subsequently hypomagnesemia, hypophosphatemia, hypokalemia and hypernatremia evolved all requiring supplementation. He remains on K-Phos at discharge and will need electrolytes, magnesium, phosphorus, and renal function reassessed within 1 week. Renal sonogram was reassuringly normal. Cardiac murmur was noted early in the hospital course and there was a bump in troponin the first hospital day attributed to acute illness. EKG had minor abnormalities present. Echocardiogram was obtained due to concern the patient may have alcoholic cardiomyopathy and report is pending at discharge. Patient is on room air at discharge and denied any respiratory symptoms. On 02/28 patient reported that he felt good other than irritation at his IV site. He describes having some heartburn since he's been hospitalized after nausea/vomiting preceding admission. He expressed frustration regarding difficulty sleeping in the hospital. The patient was alert and cooperative. Respirations are nonlabored with good airflow and clear breath sounds. Cardiac rhythm is regular. Abdomen is benign and there is no peripheral edema. Patient is felt stable for discharge at this time. He is instructed to follow- [facility] with [facility] week and that he'll need repeat labs as described above. He's additionally asked to monitor blood sugars 4 times daily. Omeprazole was continued for reflux and patient was given a prescription for Librium taper although he is declined recent doses for several days and I suspect he will not fill the prescription. He's advised to continue taking oral folic acid and thiamine. >30 minutes spent on patient care and discharge care coordination today on the date of discharge. -- Problems: (1) DKA (diabetic ketoacidoses) Status: Acute (2) Acute renal failure (ARF) Status: Acute Assessment & Plan: ATN; creatinine 5.0 on admission, 2.1 at discharge (3) Pancreatitis Status: Acute (4) Alcoholic myopathy Status: Acute Assessment & Plan: Echocardiogram is pending. (5) Alcohol abuse Status: Chronic (6) Hyponatremia Status: Resolved Assessment & Plan: Present on admission-sodium 120 (7) Hypernatremia Assessment & Plan: Overcorrected, sodium 145-151 02/25-02/28 (8) Hepatic steatosis Status: Chronic (9) Hypophosphatemia Status: Acute (10) Hypokalemia (11) Hypomagnesemia Status: Acute Assessment & Plan: Magnesium 1.3 on 02/28 (12) Elevated troponin Status: Acute Assessment & Plan: Troponin leak due to acute illness/hypotension on admission Code Status Full Code Home Meds Active Scripts Thiamine (Thiamine HCl) 100 Mg Tablet, 100 MG PO DAILY for 30 Days, #30 TAB Prov:CONNIE BABB MD 02/28/17 Folic Acid (Folic Acid) 1 Mg Tablet, 1 MG PO DAILY for 30 Days, #30 TAB Prov:CONNIE BABB MD 02/28/17 Omeprazole (Omeprazole) 20 Mg Capsule.dr, 20 MG PO ACB, #30 CAP Prov:CONNIE BABB MD 02/28/17 Potassium Phosphate,Monobasic (K-Phos Original) 500 Mg Tablet, 500 MG PO TID for 7 Days Prov:CONNIE BABB MD 02/28/17 Chlordiazepoxide HCl (Chlordiazepoxide HCl) 10 Mg Capsule, 1 CAP PO TID, #20 CAP 1 three times daily for 3 days, then 1 twice daily for 3 days, then 1 at bedtime for 3 days. Prov:CONNIE BABB MD 02/28/17 Reported Medications Insulin Aspart (Novolog Flexpen) 1 Unit Pen, 30 UNIT SQ AC15, #75 12/03/16 Insulin Glargine,Hum.rec.anlog (Lantus Solostar) 1 Unit Pen, 40 UNIT SQ HS, #30 12/03/16 Discontinued Reported Medications Lisinopril (Lisinopril) 10 Mg Tablet, 1 TAB PO DAILY, #30 12/03/16 Face to Face Encounter I met with patient on the day of dismissal and discussed follow up appointments , medications, and safety plan. Discharge Disposition Home Copies To 1: ABDIEL SUAREZ DO Documentation Requirements Renal Insufficiency Renal Insufficiency: Acute Renal Failure Diabetes Is Diabetes Contolled?: Uncontolled Related to Diabetes: Related to CONNIE BABB MD February 28, 2017 19:23
--- NOTE | 2017-02-28 21:05 | NUR ---
DISCHARGE. PT DISCHARGED AT 2039, PT ESCORTED TO THE FRONT DOOR BY SANTANA GARCIA. PT LEFT WITH FRIENDS IN PERSONAL VEHICLE. PT IN STABLE CONDITION AT DISCHARGE, VSS. DISCHARGE INSTRUCTIONS GIVEN, PT VERBALIZED UNDERSTANDING.
[2017-03-01] MEDS ORDERED: OMEPRAZOLE 20 MG CAPSULE PO SCH (06:30)
[2017-03-01] MEDS ORDERED: THIAMINE 100 MG TABLET PO SCH (09:00)
[2017-03-01] MEDS ORDERED: FOLIC ACID 1 MG TABLET PO SCH (09:00)
--- NOTE | 2017-03-01 14:33 | ECHOF ---
DATE 02/25/2017 INDICATION PA. New heart murmur. TECHNICAL QUALITY Technically good 2-D, M-mode, Doppler echocardiographic images were submitted for interpretation. FINDINGS 1. CARDIAC CHAMBERS: All cardiac chamber measurements are normal. Aortic root diameter is normal. Left atrium measures 3.5 cm. Left ventricle measures 5.5 cm. 2. LEFT VENTRICLE. Analysis reveals wall thickness is normal. Wall motion analysis is markedly abnormal with anteroseptal dyskinesis, anterolateral hypokinesis present. LV systolic dysfunction of a moderate degree is present. Ejection fraction measured 32%, visually estimated about 35%. Diastolic dysfunction, grade I/IV, is present. 3. VALVES. Mitral valve exhibits minimal sclerosis and annular calcification. Valve excursion is normal. Tricuspid and aortic valve structure and motion appeared normal. Normal valve excursion. 4. DOPPLER. Shows trace regurgitation involving mitral, aortic and tricuspid valves, none of hemodynamic significance, normal flow velocities throughout. Velocity at the aortic valve upper-normal range at 1.77 m/sec with a calculated aortic valve area of 2.1 cm2 and a widely open aortic valve indicative of absence of aortic stenosis. 5. No evidence of pericardial effusion, intracardiac masses or demonstrable shunts. IMPRESSION 1. Normal cardiac chamber size measurements. 2. Moderate LV systolic dysfunction ? as described above, ejection fraction estimated about 35%. 3. No significant valvular dysfunction. 4. Normal systolic PA pressure. Normal central venous pressure. Report was called in to the covering hospitalist. Echocardiogram findings are suggestive of coronary artery disease. MTDD
== END 2017-02-28 20:40 | disposition home or self-care (01) | DRG 637 ==
LOC: ED 21:24 → UNDOADMIN 02-24 00:46 → EDHOLD 02-24 00:46 → CCU 02-24 01:15 → MED 02-25 22:20
PROVIDERS: ADMIT Internal Medicine; ATTEND Internal Medicine
DX: E10.10 Type 1 diabetes mellitus with ketoacidosis without coma (principal); K85.20 Alcohol induced acute pancreatitis without necrosis or infection; N17.9 Acute kidney failure, unspecified; E87.1 Hypo-osmolality and hyponatremia; I10 Essential (primary) hypertension; F10.20 Alcohol dependence, uncomplicated; E83.42 Hypomagnesemia; E87.6 Hypokalemia; Z91.19 Patient's noncompliance with other medical treatment and regimen; Z79.4 Long term (current) use of insulin
CPT/HCPCS: 36415; 36416; 80048; 80053; 81001; 82010; 82248; 82550; 82803; 82948; 83036; 83605; 83690; 83735; 83880; 84100; 84145; 84484; 85025; 85610; 93005; 93306; 96361; 96374; 99406; 99407

== ENCOUNTER 2017-07-26 11:27 | Inpatient (IN) ==
[2017-07-26] MEDS ORDERED: NS 1,000 ML IV ONE (11:56)
[2017-07-26 11:57] VITALS: TEMP 99
[2017-07-26] MEDS ORDERED: INSULIN REGULAR, HUMAN 100 UNIT/ML INJECTION IVP ONE ×2 (11:58→13:14)
[2017-07-26] MEDS ORDERED: ONDANSETRON 4 MG/2 ML INJECTION IVP ONE (11:58)
--- NOTE | 2017-07-26 11:58 | Emergency Department Report ---
General Adult HPI - General Chief complaint: Nausea/Vomiting/Diarrhea Stated complaint: Kidney failure Time Seen by Provider: 07/26/17 11:58 Source: patient, old records reviewed, other (nurse practitioner at [facility]) Mode of arrival: ambulatory Limitations: no limitations - History of Present Illness HPI narrative: Patient is a 61-year-old male who presents emergent problem for evaluation of possible DKA. Patient presented to [facility] today saying that he had not been able sleep for the last 3 days and then mentioned that he had only been able to drink milk for the last 3 days continuing to have increasing thirst and nausea. Basic laboratories were checked patient was found to have elevated creatinine, elevated glucose levels. Patient was sent to the ER for evaluation of possible DKA Onset (ago): day(s) - Related Data Home Medications Medication Instructions Recorded Confirmed Insulin Aspart [Novolog Flexpen] 30 unit SQ AC15 #75 12/03/16 07/26/17 Insulin Glargine,Hum.rec.anlog 40 unit SQ HS #30 12/03/16 07/26/17 [Lantus Solostar] Allergies Allergy/AdvReac Type Severity Reaction Status Date / Time No Known Allergies Allergy Unknown Verified 07/26/17 11:53 Review of Systems Constitutional: Reports: weakness. Denies: fever, chills Eyes: Denies: eye discharge, vision change ENT: Denies: throat pain, dental pain Cardiovascular: Denies: chest pain, palpitations, dyspnea on exertion Respiratory: Denies: cough, dyspnea, wheezes Gastrointestinal: Reports: abdominal pain, nausea, vomiting Genitourinary: Reports: urgency, dysuria, frequency Psychiatric: Denies: anxiety, depression Endocrine: Reports: fatigue PFSH Patient Stated Medical History Diabetes Mellitus Type 2 Yes - Social History Smoking status: Never smoker Substance use type: does not use Physical Exam - General General appearance: alert, in no apparent distress - ENT ENT exam: Present: normal oropharynx, mucous membranes moist - Neck Neck exam: Present: trachea midline. Absent: tenderness - Chest Chest inspection: Present: normal inspection, symmetric chest wall rise, tenderness - Respiratory Respiratory exam: Present: normal lung sounds bilaterally. Absent: respiratory distress, wheezes, stridor - Cardiovascular Cardiovascular exam: Present: regular rate, normal rhythm, normal heart sounds - Abdominal Exam Abdominal exam: Present: soft, normal bowel sounds. Absent: distention, tenderness - Skin Skin exam: Present: warm, dry - Neurological Exam Neurological exam: Present: alert, oriented X3 - Psychiatric Psychiatric exam: Present: normal affect, normal mood Course Vital Signs Temperature 99 F 07/26/17 11:38 Pulse Rate 109 H 07/26/17 11:38 Respiratory Rate 20 07/26/17 11:38 Blood Pressure 181/104 H 07/26/17 11:38 Pulse Oximetry 97 07/26/17 11:38 Temperature 99 F 07/26/17 11:38 Pulse Rate 108 H 07/26/17 13:06 Respiratory Rate 24 07/26/17 13:06 Blood Pressure 142/92 H 07/26/17 13:06 Pulse Oximetry 97 07/26/17 13:06 Medical Decision Making - MDM Narrative Medical decision making narrative: DKA, dehydration, UTI, hyperglycemia - Medical Records Medical records reviewed: Yes: I reviewed the patient's medical records. - Lab Data Lab results reviewed: Yes: I reviewed the patient's lab results. Result diagrams: 07/26/17 12:15 07/26/17 12:15 Lab Results 07/26/17 07/26/17 07/26/17 Range/Units 12:15 12:15 12:15 WBC 9.6 (4.5-11.0) T/MM3 RBC 5.95 H (4.50-5.90) M/MM3 Hgb 14.5 (13.5-17.5) GM/DL Hct 43.6 (41-53) % MCV 73.3 L (80-100) UM3 MCH 24.4 L (26-34) UUG MCHC 33.3 (31-37) GM/DL RDW Std Deviation 36.6 L (36.9-50.2) FL Plt Count 177 (130-400) T/MM3 MPV 11.5 (9.4-12.4) UM3 Immature Gran % (Auto) 0.2 (0.0-0.5) % Neut % (Auto) 84.5 H (33-66) % Lymph % (Auto) 6.8 L (23-45) % Redwood % (Auto) 8.4 (0-9.0) % Eos % (Auto) 0.0 (0-4) % Baso % (Auto) 0.1 (0-2) % Neut # (Auto) 8.1 H (1.8-7.7) T/MM3 Lymph # (Auto) 0.7 L (1-4.8) T/MM3 Redwood # (Auto) 0.8 (0-0.8) T/MM3 Eos # (Auto) 0.0 (0-0.5) T/MM3 Baso # (Auto) 0.0 (0-0.2) T/MM3 Abs Immat Gran (auto) 0.02 (0.00-0.03) T/MM3 ABG pH (7.350-7.450) ABG pCO2 (34-45) MMHG ABG pO2 (80-100) MMHG ABG HCO3 (22-26) MEQ/L ABG Total CO2 (23-27) MEQ/L ABG O2 Saturation (95.0-98.0) % ABG Base Excess (-2.0-2.0) MMOL/L O2 Delivery Method Turbidity < 20 (0-20) Sodium 128 L (134-144) MEQ/L Potassium 6.6 H* (3.6-5) MEQ/L Chloride 91 L (98-107) MEQ/L Carbon Dioxide 16 L (22-30) MEQ/L Anion Gap 21 H (5-15) MEQ/L BUN 74.0 H* (9-20) MG/DL Creatinine 1.9 H (0.8-1.5) MG/DL GFR Calculation 36 BUN/Creatinine Ratio 39 H (6-26) RATIO Calculated Osmolality 321 H (261-280) MOSM/KG Calcium 9.4 (8.4-10.2) MG/DL Total Bilirubin 0.40 (0.20-1.30) MG/DL Icterus Index < 2 (0-7) AST 83 H (17-59) U/L ALT 176 H (21-72) U/L Alkaline Phosphatase 170 H (38-126) U/L Troponin I 0.230 H (0-0.12) ng/ml Total Protein 8.4 H (6.3-8.2) G/DL Albumin 4.9 (3.5-5.0) G/DL Globulin 3.5 (2.4-3.6) G/DL Albumin/Globulin Ratio 1.4 (1.1-2.2) RATIO Specimen Hemolysis < 15 (0-25) Alcohol, Quantitative <10 (<10) MG/DL Specimen Comment Sumbit new specimen Tests Not Done Abg Reason Tests Not Done Clotted specimen 07/26/17 Range/Units 12:48 WBC (4.5-11.0) T/MM3 RBC (4.50-5.90) M/MM3 Hgb (13.5-17.5) GM/DL Hct (41-53) % MCV (80-100) UM3 MCH (26-34) UUG MCHC (31-37) GM/DL RDW Std Deviation (36.9-50.2) FL Plt Count (130-400) T/MM3 MPV (9.4-12.4) UM3 Immature Gran % (Auto) (0.0-0.5) % Neut % (Auto) (33-66) % Lymph % (Auto) (23-45) % Redwood % (Auto) (0-9.0) % Eos % (Auto) (0-4) % Baso % (Auto) (0-2) % Neut # (Auto) (1.8-7.7) T/MM3 Lymph # (Auto) (1-4.8) T/MM3 Redwood # (Auto) (0-0.8) T/MM3 Eos # (Auto) (0-0.5) T/MM3 Baso # (Auto) (0-0.2) T/MM3 Abs Immat Gran (auto) (0.00-0.03) T/MM3 ABG pH 7.380 (7.350-7.450) ABG pCO2 32 L (34-45) MMHG ABG pO2 84 (80-100) MMHG ABG HCO3 19 L (22-26) MEQ/L ABG Total CO2 19.9 L (23-27) MEQ/L ABG O2 Saturation 96.0 (95.0-98.0) % ABG Base Excess -5.3 L (-2.0-2.0) MMOL/L O2 Delivery Method Room air Turbidity (0-20) Sodium (134-144) MEQ/L Potassium (3.6-5) MEQ/L Chloride (98-107) MEQ/L Carbon Dioxide (22-30) MEQ/L Anion Gap (5-15) MEQ/L BUN (9-20) MG/DL Creatinine (0.8-1.5) MG/DL GFR Calculation BUN/Creatinine Ratio (6-26) RATIO Calculated Osmolality (261-280) MOSM/KG Calcium (8.4-10.2) MG/DL Total Bilirubin (0.20-1.30) MG/DL Icterus Index (0-7) AST (17-59) U/L ALT (21-72) U/L Alkaline Phosphatase (38-126) U/L Troponin I (0-0.12) ng/ml Total Protein (6.3-8.2) G/DL Albumin (3.5-5.0) G/DL Globulin (2.4-3.6) G/DL Albumin/Globulin Ratio (1.1-2.2) RATIO Specimen Hemolysis (0-25) Alcohol, Quantitative (<10) MG/DL Specimen Comment Tests Not Done Reason Tests Not Done Disposition Clinical Impression: DKA (diabetic ketoacidoses) Qualifiers: Diabetes mellitus type: type 1 Diabetes mellitus complication detail: without coma Qualified Code(s): E10.10 - Type 1 diabetes mellitus with ketoacidosis without coma Disposition: 02 To [facility] Acute Care Condition: Stable Prescriptions: No Action Insulin Aspart [Novolog Flexpen] 30 unit SQ AC15 #75 Insulin Glargine,Hum.rec.anlog [Lantus Solostar] 40 unit SQ HS #30 Referrals: Masha Perez APRN [Family Provider] - Time of Disposition: 13:01 - Seen By: physician
--- OUTSIDE RECORDS SUMMARY | 2017-07-26 12:05 | External Medical Summary ---
:1955 Author Organization e[employer]Works Care Team Providers Name Role Phone Masha Perez Provider Role Unavailable Allergies No Known Allergies Problems Problem Type Condition ICD-9 Code Onset Dates Condition Status Problem Diabetes Mellitus Type 2, not 250.00 Active stated as uncontrolled Problem Elevated blood pressure reading 796.2 Active without diagnosis of hypertension Problem Hypertension, benign 401.1 Active Assessment Colon cancer screening V76.51 Active Assessment Diabetes Mellitus Type 2, not 250.00 Active stated as uncontrolled Assessment Hypertension, benign 401.1 Active Medications Medication Code System Code Instructions Start End Date Status Dosage Date Lantus [facility] 10431-864 100 UNIT/ML Active 35 units 0-33 Subcutaneous per day Once a day Humalog KwikPen [facility] 72994-911 100 UNIT/ML Active 23 units 9-01 Subcutaneous per meal three times a day Lisinopril [facility] 77170-780 20 MG Orally Aug 26, Active 1 tablet 8-01 Once a day 2013 Procedures Procedure Coding System Code Date OFFICE VISIT, EST-LOW COMPLEXITY (15 MIN.) CPT-4 99117 Aug 26, 2014 HEMOGLOBIN A1C, IN HOUSE CPT-4 35520 Aug 26, 2014 Vital Signs Date/Time: Aug 26, 2014 Height 69 inches Weight 195.8 lbs Temperature 98.8 F Blood Pressure Diastolic 90 mm Hg Blood Pressure Systolic 150 mm Hg Cardiac Monitoring Heart Rate 120 Beats per Minute BMI 28.91 Index Respiratory Rate 16 per Minute Results Name Result Date Reference Range Unit In House Hemoglobin A1c Summary Purpose eClinicalWorks Submission
--- OUTSIDE RECORDS SUMMARY | 2017-07-26 12:05 | External Medical Summary ---
:1955 Author Organization [employer] Care Team Providers Name Role Phone Masha Perez Provider Role Unavailable Allergies, Adverse Reactions, Alerts Substance Reaction Event Type N.K.D.A. Info Not Available Non Drug Allergy Problems Problem Type Condition Code Onset Dates Condition Status Problem Diabetes Mellitus Type 2, not stated 250.00 Active as uncontrolled Problem Elevated blood pressure reading 796.2 Active without diagnosis of hypertension Problem Hypertension, benign 401.1 Active Assessment Colon cancer screening V76.51 Active Assessment Insomnia, unspecified 780.52 Active Assessment Diabetes Mellitus Type 2, not stated 250.00 Active as uncontrolled Assessment Hypertension, benign 401.1 Active Medications Medication Code System Code Instructions Start End Date [place] [address]-52 100 UNIT/ML 35 units 20-33 Subcutaneous per day [place] [address] 100 UNIT/ML 23 units 99-01 Subcutaneous per meal three [place] [address]-20 50 MG Orally at Nov 25, 1 tablet at 37-01 HS. February repeat 2014 bedtime in 2 hrs [place] [address]-23 20 MG Orally Aug 26, 1 tablet 68-01 Once a day 2013 Procedures Procedure Coding System Code Date OFFICE VISIT, EST-LOW COMPLEXITY (15 MIN.) CPT-4 55098 Nov 25, 2014 HEMOGLOBIN A1C, IN HOUSE CPT-4 58293 Nov 25, 2014 Vital Signs Date/Time: Nov 25, 2014 Height 69 in Weight 184.8 lbs Temperature 97.8 F Blood Pressure Diastolic 110 mm Hg Blood Pressure Systolic 158 mm Hg Cardiac Monitoring Heart Rate 112 /min BMI 27.29 Index Respiratory Rate 18 /min Results No Known Results Summary Purpose eClinicalWorks Submission
--- OUTSIDE RECORDS SUMMARY | 2017-07-26 12:05 | External Medical Summary ---
[...] hypertension Problem Hypertension, benign 401.1 Active Assessment Screening for lipoid disorders V77.91 Active Medications Medication Code Code Instructions Start End Date Status Dosage System Date Humalog KwikPen [facility] 20998-63 100 UNIT/ML 23 units per 99-01 Subcutaneous meal three times a day NovoLog Flexpen [facility] 25021-74 100 UNIT/ML Oct 01, as directed 39-10 Subcutaneous 2014 three times a day. Dx 250.00 Lantus [facility] 28217-62 100 UNIT/ML 35 units 20-33 Subcutaneous per day Once a day Lisinopril [facility] 49974-79 20 MG Orally Aug 26, tablet 68-01 Once a day 2013 Procedures Procedure Coding System Code Date LIPID PANEL CPT-4 97941 Nov 25, 2014 Results No Known Results Summary Purpose eClinicalWorks Submission
--- OUTSIDE RECORDS SUMMARY | 2017-07-26 12:05 | External Medical Summary ---
:1955 Author Organization [employer] Care Team Providers Name Role Phone Masha Perez Provider Role Unavailable Allergies No Known Allergies Problems Problem Type Condition Code Onset Dates Condition Status Problem Essential (primary) hypertension I10 Active Problem Major depressive disorder, single F32.9 Active episode, unspecified Problem Type 2 diabetes mellitus without E11.9 Active complications Problem Elevated blood pressure reading 796.2 Active without diagnosis of hypertension Problem Other specified diabetes mellitus E13.9 Active without complications Problem Hypertension, benign 401.1 Active Problem Diabetes Mellitus Type 2, not stated 250.00 Active as uncontrolled Medications Medication Code System Code Instructions Start End Date Status Dosage Date Trazodone HCl [facility] 97515-201 150 MG Orally at Nov 25, Aug 07, 1 tablet at 3-01 HS. May repeat 2014 2015 bedtime in 2 hrs if still awake Results No Known Results Summary Purpose eClinicalWorks Submission
--- OUTSIDE RECORDS SUMMARY | 2017-07-26 12:05 | External Medical Summary ---
:1955 Author Organization [employer] Care Team Providers Name Role Phone Masha Perez Provider Role Unavailable Allergies No Known Allergies Problems Problem Type Condition Code Onset Dates Condition Status Problem Diabetes Mellitus Type 2, not stated 250.00 Active as uncontrolled Problem Elevated blood pressure reading 796.2 Active without diagnosis of hypertension Problem Hypertension, benign 401.1 Active Medications No Known Medications Results No Known Results Summary Purpose eClinicalWorks Submission
--- OUTSIDE RECORDS SUMMARY | 2017-07-26 12:05 | External Medical Summary ---
[...] hypertension Problem Hypertension, benign 401.1 Active Assessment Diabetes Mellitus Type 2, not 250.00 Active stated as uncontrolled Assessment Hypertension, benign 401.1 Active Medications Medication Code System Code Instructions Start End Date Status Dosage Date Lisinopril [facility] 78342-604 20 MG Orally Aug 26, Active 1 tablet 8-01 Once a day 2013 Humalog KwikPen [facility] 36962-533 100 UNIT/ML Active 23 units 9-01 Subcutaneous per meal three times a day Lantus [facility] 21165-060 100 UNIT/ML Active 35 units 0-33 Subcutaneous per day Once a day Procedures Procedure Coding System Code Date COMPREHENSIVE METABOLIC PANEL CPT-4 67632 Sep 24, 2014 Vital Signs Date/Time: Aug 26, 2014 Height 69 inches Weight 195.8 lbs Temperature 98.8 F Blood Pressure Diastolic 90 mm Hg Blood Pressure Systolic 150 mm Hg Cardiac Monitoring Heart Rate 120 Beats per Minute BMI 28.91 Index Respiratory Rate 16 per Minute Results No Known Results Summary Purpose [employer] Submission
--- OUTSIDE RECORDS SUMMARY | 2017-07-26 12:06 | External Medical Summary ---
[...] Instructions Start End Date Status Dosage Date NovoLog Flexpen [facility] 13117-874 100 UNIT/ML Oct 01, 30 units. 9-10 Subcutaneous 2013 Dx code three times a E13.9. Pt day WITH MEALS needs one pen only. Results No Known Results Summary Purpose [employer] Submission
--- OUTSIDE RECORDS SUMMARY | 2017-07-26 12:06 | External Medical Summary ---
[...] not stated 250.00 Active as uncontrolled Medications No Known Medications Results No Known Results Summary Purpose [employer] Submission
--- OUTSIDE RECORDS SUMMARY | 2017-07-26 12:06 | External Medical Summary ---
:1955 Author Organization e[employer] Care Team Providers Name Role Phone Kenna Noguera Provider Role Unavailable Allergies No Known Allergies [...] End Date Status Dosage Date Trazodone HCl [facility] 34034-315 150 MG Orally at Nov 16, 1 tablet at 3-01 HS. February repeat 2014 bedtime in 2 hrs if still awake Results No Known Results Summary Purpose [employer] Submission
--- OUTSIDE RECORDS SUMMARY | 2017-07-26 12:06 | External Medical Summary ---
[...] hypertension Problem Hypertension, benign 401.1 Active Medications Medication Code System Code Instructions Start End Date Status Dosage Date Trazodone HCl [facility] 32376-957 150 MG Orally at Nov 16, 1 tablet at 3-01 HS. February repeat 2014 bedtime in 2 hrs if still awake Results No Known Results Summary Purpose [employer] Submission
--- OUTSIDE RECORDS SUMMARY | 2017-07-26 12:06 | External Medical Summary ---
[...] Start End Date Status Dosage Date Lantus [facility] 00544-145 100 UNIT/ML Nov 05, units 9-05 Subcutaneous Once 2015 a day Results No Known Results Summary Purpose [employer] Submission
--- OUTSIDE RECORDS SUMMARY | 2017-07-26 12:06 | External Medical Summary ---
[...] End Date Status Dosage Date Trazodone HCl [facility] 07910-930 150 MG Orally at Nov 16, 1 tablet at 3-01 HS. February repeat 2014 bedtime in 2 hrs if still awake Results No Known Results Summary Purpose [employer]Works Submission
[2017-07-26] MEDS: SALINE FLUSH 10ml SYRINGE IVF PRN (12:08)
[2017-07-26] MEDS ORDERED: INSULIN REGULAR, HUMAN 100 UNIT in NS 100 ML IV PRN (13:54)
[2017-07-26] MEDS ORDERED: DEXTROSE 50% SYRINGE 50ml (1 AMP) IVP PRN (13:54)
[2017-07-26] MEDS ORDERED: NS 1,000 ML IV SCH (14:00)
--- NOTE | 2017-07-26 14:02 | History & Physical Report ---
<Brigitte Riley - Last Filed: 07/26/17 17:32> History of Present Illness Date: 07/26/17 Chief complaint: N/V HPI: Bernard Espinosa is a 61 year old male who was seen at [facility] for a med check, but was so ill that he was sent to [facility] for further evaluation and admission for ZAID and DKA: outside labs showed Na of 131, K 7.6, Glu >700, BUN 71, Cr 1.9; UA pos for hematuria, glucosuria, and ketonuria; hgb A1c was 11.1%. He reports nausea, vomiting, upset stomach for the last few days. He states that the only thing that relieves his symptoms is to drink excessive amounts of milk (2 gallons in 24 hours). Since he wasn't eating anything, he thought it would be unwise to continue taking his long acting and short acting insulin. Plus, when he last checked his blood sugar at home it was 160. He has not been able to sleep for the last 3 days either. He feels weak and is having problems thinking straight. He notes subjective fever and chills. He's had diarrhea - no blood or melena. He also denies seeing any blood in emesis. He has a chronic "smoker's" cough and a sore throat from throwing up. He has been urinating frequently. He denies any dizziness or falls, but states that he took a knife to a callous to his left foot a couple days ago, and it started to bleed. In the ED, chemistry panel was significantly abnormal: Na was low at 128, K was elevated at 6.6, CO2 16 and gap 21, BUN was 74, and creatinine was 1.9 (which is actually better than baseline). Blood glucose was 1070. He was given 8U of IV insulin and his blood sugar dropped into the 500s, and another 8U was ordered. LFTs were elevated as well: AST 83, ALT 170, AP 170. Troponin was elevated at 0.23. Lipase was pending. Dr. Babb was contacted and the patient was admitted to the CCU, inpatient status, for treatment of his DKA/ electrolyte abnormalities, abdominal discomfort, and nausea/vomiting. LOS is expected to exceed 2 overnights. Review of Systems All systems PM: 10-point ROS was reviewed, no additional remarkable complaints except - Constitutional Constitutional: Present: as per HPI, anorexia, chills, daytime sleepiness, fatigue, fever(s), lethargy. Absent: headache(s) - EENMT Eyes: Present: requires corrective lenses. Absent: change in vision Balance: Absent: vertigo Nose: Absent: obstruction Mouth/Throat: Present: as per HPI, sore throat - Cardiovascular Cardiovascular: Absent: chest pain, dyspnea on exertion Vascular: Absent: pedal edema, unilateral swelling - Respiratory Respiratory: Present: cough. Absent: dyspnea - Gastrointestinal Gastrointestinal: Present: as per HPI, abdominal pain, nausea, vomiting. Absent : hematemesis, hematochezia - Genitourinary Genitourinary: Present: urinary frequency. Absent: dysuria - Musculoskeletal Musculoskeletal: Present: muscle weakness (diffuse). Absent: back pain, joint swelling, myalgias - Integumentary/Breasts Integumentary: Present: wounds (see HPI) - Neurological Neurological: Present: confusion, weakness. Absent: abnormal gait, abnormal speech, dizziness, focal weakness, frequent falls, headache(s), loss of vision, numbness, paresthesias, sensory deficit - Psychiatric Psychiatric: Present: abnormal sleep pattern - Endocrine Endocrine: Absent: palpitations - Hematologic/Lymphatic Hematologic/Lymphatic: Absent: easy bleeding, easy bruising - Allergic/Immunologic Allergic/Immunologic: Absent: seasonal rhinorrhea PFSH DM2 - diagnosed at age 25 Alcohol abuse Hepatic steatosis CKD Chronic systolic CHF (EF 35% Feb, 2017) Overweight BMI 26.5 hx of alcoholic pancreatitis Surgical History: Left lower leg ORIF Family History: He does not know family history for certain Per [facility] records, his father is , he had diabetes. Mother is , had kidney disease and was on dialysis. - Social History Smoking status: Current every day smoker Packs per day: 1 Substance use type: does not use Alcohol intake frequency: does not drink (denies current EtOH) Current occupational status: employed Current occupation: Safety Contractor Current residence: Apartment/Private Home Social history: PCP - Masha Peerz APRN Medications Home Medications Medication Instructions Recorded Confirmed Type Insulin Aspart [Novolog Flexpen] 30 unit SQ AC15 #75 12/03/16 07/26/17 History Insulin Detemir [Levemir] 40 unit SQ HS 07/26/17 07/26/17 History Allergies Allergy/AdvReac Type Severity Reaction Status Date / Time No Known Allergies Allergy Unknown Verified 07/26/17 11:53 Exam Vital Signs: Temperature 99 F 07/26/17 11:38 Pulse Rate 112 H 07/26/17 13:45 Respiratory Rate 20 07/26/17 13:45 Blood Pressure 116/79 07/26/17 13:45 Pulse Oximetry 96 07/26/17 13:45 Telemetry Rhythm: Sinus Tachycardia Height/Weight/BMI: Height 1.75 m Weight 80.2 kg - Constitutional Present: no acute distress, well nourished, well developed - Routine HEENT Exam Head: Present: normocephalic Eye: Absent: conjunctival icterus, scleral injection ENT: Present: mucous membranes dry, oropharynx clear - Routine Neck Exam Present: supple - Routine Respiratory Exam Present: CTA bilaterally - Routine Cardiovascular Exam Present: RRR, S1, S2 - Routine Abdominal Exam Present: soft, normoactive bowel sounds, non tender, distended (mild) - Routine Extremities Exam Present: no edema, pulses intact, normal capillary refill - Routine Back/Spine/Pelvis Exam Back/Spine: Absent: CVA tenderness, vertebral tenderness - Routine Skin Exam Present: intact, dry, warm, wounds (left foot, head of 1st metatarsal - bunion with overlying abrasion from where he debrided a callous with a knife. No erythema or drainage.) - Routine Neurological Exam Present: alert, oriented X3, CN II-XII intact, normal speech - Routine Psychiatric Exam Present: normal affect, normal thought process, cooperative Results - Labs CBC & Chem 7: 07/26/17 12:15 07/26/17 15:58 - ABG Interpretation ABG results: 07/26/17 12:48 ABG pH 7.380 ABG pCO2 32 L ABG pO2 84 ABG HCO3 19 L ABG Total CO2 19.9 L ABG O2 Saturation 96.0 ABG Base Excess -5.3 L Assessment and Plan (1) DKA (diabetic ketoacidoses) Current visit: Yes Status: Acute DVT Prophylaxis: SCD's GI Prophylaxis: Protonix Resuscitation Status: Full Code Assessment and Plan: Assessment DKA with hyponatremia, hyperkalemia, gap acidosis Elevated LFTs Uremia, BUN 74 on admission Uncontrolled DM2, hgb A1c 11.1% - diagnosed at age 25 CKD, recent ZAID/ATN in Feb, 2017 Chronic systolic CHF (EF 35% Feb, 2017) Hx of alcohol abuse Hepatic steatosis Plan Admit, inpatient status, CCU. Initiate DKA orders/insulin gtt. IVF: NS at 150 mL/hr. Monitor for fluid overload. EF 35% per echo in Feb, 2017 ( echo was also suggestive of CAD). Follow up on pending lipase. Diet: NPO with sips and chips until lipase is resulted and nausea/vomiting has resolved. Check EKG and trend troponin. He actually had higher troponins during previous admission. Check stool for occult blood. With GI symptoms, consider EGD. Consider folate, thiamine, medications for EtOH withdrawal - hx of alcohol abuse but denies current use. Nicotine patch PRN; ask RT to provide tobacco cessation information. May need to consult wound RN for recommendations for wound on left foot. Records reviewed from [facility]. Discussed with Masha Perez APRN, Dr. Duong, and Dr. Babb. Hospital Course Summary Disclaimer: The visit summary below is not to be considered part of the above Progress Note. Hospital Course: 07/26/17 15:21 Assessment DKA with hyponatremia, hyperkalemia, gap acidosis Elevated LFTs Uremia, BUN 74 on admission Uncontrolled DM2, hgb A1c 11.1% - diagnosed at age 25 CKD, recent ZAID/ATN in Feb, 2017 Chronic systolic CHF (EF 35% Feb, 2017) Hx of alcohol abuse Hepatic steatosis Plan Admit, inpatient status, CCU. Initiate DKA orders/insulin gtt. IVF: NS at 150 mL/hr. Monitor for fluid overload. EF 35% per echo in Feb, 2017 ( echo was also suggestive of CAD). Follow up on pending lipase. Diet: NPO with sips and chips until lipase is resulted and nausea/vomiting has resolved. Check EKG and trend troponin. He actually had higher troponins during previous admission. Check stool for occult blood. With GI symptoms, consider EGD. Consider folate, thiamine, medications for EtOH withdrawal - hx of alcohol abuse but denies current use. Nicotine patch PRN; ask RT to provide tobacco cessation information. May need to consult wound RN for recommendations for wound on left foot. Records reviewed from [facility]. Discussed with Masha Perez APRN, Dr. Duong, and Dr. Babb. <HolleyConnie - Last Filed: 07/26/17 17:59> History of Present Illness Date: 07/26/17 Exam Vital Signs: Temperature 99 F 07/26/17 11:38 Pulse Rate 112 H 07/26/17 16:06 Respiratory Rate 26 H 07/26/17 16:06 Blood Pressure 156/100 H 07/26/17 16:06 Pulse Oximetry 97 07/26/17 16:06 Height/Weight/BMI: Height 1.73 m Weight 79.1 kg Body Mass Index 26.5 Results - Labs CBC & Chem 7: 07/26/17 12:15 07/26/17 15:58 Assessment and Plan (1) DKA (diabetic ketoacidoses) Current visit: Yes Status: Acute Assessment and Plan: I have independently evaluated and examined this patient. I reviewed the chart, the patient's history, and the JIG INSPECTOR/PA's documented findings as above. We discussed and formulated the assessment and plan as above with additions as below: Mr. Espinosa gives a somewhat confused history indicating his blood sugars were high several days ago so he stopped eating. He also reports having nausea and vomiting until last night and that the vomiting caused his tonsils to feel raw. Subsequently he has been drinking large volumes of milk because it was the only thing that soothed his tonsils. Timeline is very difficult to follow as he began drinking milk before the nausea and vomiting stopped and was apparently able to keep milk in his stomach. Blood sugars were initially around 500 and he got them down to about 160 couple days ago and then stopped taking insulin so it wouldn't get lower because he wasn't eating; he also stopped checking them. He denies having nausea now and was shocked that his blood sugar was elevated since he hasn't been eating and was only drinking milk. He reports having some fever, feeling weak, and not sleeping for a week. He went to [facility] today to get a refill of trazodone and was subsequently referred to the hospital as noted. Examination reveals nonlabored respirations with clear anterior breath sounds Oropharynx is clear other than dry membranes, no posterior erythema or exudates , uvula is midline and tonsils are not enlarged. Cardiac rhythm regular with low-grade tachycardia Abdomen is soft/benign. Extremities without edema. Blood sugar markedly elevated with verbal report of glucose 1070 on presentation (although this has not been reported out by the lab), hyponatremia , potassium 6.6 improving to 5.5 with fluids/insulin. Bicarbonate was slightly depressed at 16 and transaminases are elevated although this is been true previously. Alcohol was nondetectable and patient has been alcohol free by history and attending [facility] per history. Urine positive for glucose and ketones. Patient reports he was initially treated with oral agents when diabetes was diagnosed in his 20s. He was admitted with acidosis and hyperglycemia in February 2017 although brief review of records at that time indicates that alcoholic ketoacidosis was just as likely as diabetic ketoacidosis as cause of presenting metabolic abnormalities. Patient clearly needs further diabetes education and sick day management has been requested. Continue fluids and insulin per DKA protocol; may more properly be categorized as hyperosmolar hyperglycemia but will require significant insulin to manage and drip will be the most efficient way of doing so. BUN significantly elevated consistent with dehydration. 4 hour labs demonstrate normalization of sodium, magnesium and phosphorus stable. Recheck BMP in 6 hours. Troponin slightly elevated 2-EKG pending. In addition to above diagnoses please add: #1 dehydration #2 tobacco abuse Discussed with Dr. Duong. Hospital Course Summary Disclaimer: The visit summary below is not to be considered part of the above Progress Note.
[2017-07-26 14:27] VITALS: BMI 26.5
[2017-07-26] MEDS ORDERED: NICOTINE 21 MG PATCH TD ONE (14:28)
[2017-07-26] MEDS: PANTOPRAZOLE 40 MG INJECTION IVP SCH (14:31)
[2017-07-26] MEDS ORDERED: ONDANSETRON 4 MG/2 ML INJECTION IVP PRN (18:00)
[2017-07-26] MEDS ORDERED: ACETAMINOPHEN 325 MG TABLET PO PRN ×2 (18:00→19:00)
[2017-07-26] MEDS ORDERED: D5NS 1,000 ML IV SCH (19:15)
[2017-07-26] MEDS ORDERED: TRAZODONE 50 MG TABLET PO SCH (21:00)
[2017-07-26] MEDS ORDERED: INSULIN DETEMIR 100unit/ml INJECTION SQ SCH (21:00)
[2017-07-26] MEDS ORDERED: POTASSIUM CHLORIDE INJ 20 MEQ in D5NS 1,000 ML IV SCH (22:15)
[2017-07-26] MEDS: INSULIN ASPART 100unit/ml INJECTION SQ PRN (23:07)
[2017-07-27] MEDS: NS with KCL 20 mEq 1,000 ML IV SCH ×2 (00:53→12:37)
[2017-07-27] MEDS: INSULIN ASPART 100unit/ml INJECTION SQ PRN ×4 (03:22→10:11)
[2017-07-27] MEDS: SALINE FLUSH 10ml SYRINGE IVF PRN (08:36)
[2017-07-27] MEDS: PANTOPRAZOLE 40 MG INJECTION IVP SCH (08:36)
[2017-07-27 10:09] VITALS: BP 155/101; O2SAT 97
[2017-07-27] MEDS ORDERED: INSULIN ASPART 100unit/ml INJECTION SQ SCH (11:45)
[2017-07-27] MEDS ORDERED: LISINOPRIL 10 MG TABLET PO SCH (12:45)
--- NOTE | 2017-07-27 14:13 | Discharge Instructions ---
Discharge Plan - Med Rec/Dispo Referrals/Follow Up: Masha Perez APRN [Family Provider] - 2 Days [facility] Instructions: Basic Carbohydrate Counting (DC), Managing Diabetes During Sick Days (DC) Prescriptions: New Lisinopril [Prinivil] 10 mg PO DAILY #30 tab Continue Insulin Aspart [Novolog Flexpen] 30 unit SQ AC15 #75 Insulin Detemir [Levemir] 40 unit SQ HS Discharge Instructions/Outpatient Orders: Provider Discharge Instructions Location: Determined By Patient - Disposition 07 Against Medical Advice
[2017-07-27 14:21] VITALS: PULSE 107; RESP 21
--- NOTE | 2017-07-27 23:39 | Discharge Summary ---
Discharge Information Date of admission: 07/26/17 14:24 Anticipated date of discharge: 07/27/17 Attending Physician: Connie Babb MD Primary care physician: Masha Perez APRN Consults: Inpatient Diabetic Consult [CONS] Routine Diabetic Diagnosis: E11.65 Uncontrolled T2 DM Diabetic Training: Detect Complications Comment: sick day management - Discharge Diagnosis (1) DKA (diabetic ketoacidoses) Status: Acute - Laboratory Labs: Glucose on admission 1027, sodium 128, potassium 6.6, bicarbonate 16 with anion gap 21, calculated osmolality 321, creatinine 1.9, BUN 74; AST 83, ALT 176, alkaline phosphatase 170, bilirubin 0.4, and lipase 1011 ABG on room air on presentation 7.38/32/84/19 Alcohol nondetectable 07/27/17 05:07 07/27/17 05:07 History of Present Illness HPI: Bernard Espinosa is a 61 year old male who was seen at [facility] for a med check, but was so ill that he was sent to [facility] for further evaluation and admission for ZAID and DKA: outside labs showed Na of 131, K 7.6, Glu >700, BUN 71, Cr 1.9; UA pos for hematuria, glucosuria, and ketonuria; hgb A1c was 11.1%. He reports nausea, vomiting, upset stomach for the last few days. He states that the only thing that relieves his symptoms is to drink excessive amounts of milk (2 gallons in 24 hours). Since he wasn't eating anything, he thought it would be unwise to continue taking his long acting and short acting insulin. Plus, when he last checked his blood sugar at home it was 160. He has not been able to sleep for the last 3 days either. He feels weak and is having problems thinking straight. He notes subjective fever and chills. He's had diarrhea - no blood or melena. He also denies seeing any blood in emesis. He has a chronic "smoker's" cough and a sore throat from throwing up. He has been urinating frequently. He denies any dizziness or falls, but states that he took a knife to a callous to his left foot a couple days ago, and it started to bleed. In the ED, chemistry panel was significantly abnormal: Na was low at 128, K was elevated at 6.6, CO2 16 and gap 21, BUN was 74, and creatinine was 1.9 (which is actually better than baseline). Blood glucose was 1070. He was given 8U of IV insulin and his blood sugar dropped into the 500s, and another 8U was ordered. LFTs were elevated as well: AST 83, ALT 170, AP 170. Troponin was elevated at 0.23. Lipase was pending. Dr. Babb was contacted and the patient was admitted to the CCU, inpatient status, for treatment of his DKA/ electrolyte abnormalities, abdominal discomfort, and nausea/vomiting. LOS is expected to exceed 2 overnights. Hospital Course This is a general summary of the patient's hospital course. For more details refer to the complete medical record. Hospital course: 07/26/17 15:21 Assessment DKA with hyponatremia, hyperkalemia, gap acidosis Hyperosmolar hyperglycemia Elevated LFTs Hypertension Dehydration, BUN 74 on admission Uncontrolled DM2, hgb A1c 11.1% - diagnosed at age 25 CKD, recent ZAID/ATN in Feb, 2017 Chronic systolic CHF (EF 35% Feb, 2017) Hx of alcohol abuse Hepatic steatosis Hospital course 07/26/17 Admit, inpatient status, CCU. Initiate DKA orders/insulin gtt. IVF: NS at 150 mL/hr. Monitor for fluid overload. EF 35% per echo in Feb, 2017 ( echo was also suggestive of CAD). Sips and chips initially with clear liquids started as GI symptoms stabilize. EKG with sinus tachycardia and evidence of old anteroseptal myocardial infarction, minor elevation of troponin but did not increase sequentially. Check stool for occult blood. With GI symptoms, consider EGD. Hx of alcohol abuse but denies current use and alcohol level nondetectable. Nicotine patch PRN; ask RT to provide tobacco cessation information. May need to consult wound RN for recommendations for wound on left foot. 07/27/17 discharge-AMA Patient reported complete resolution of nausea, vomiting, and abdominal pain. He still has some sore throat today but reports that he is eating better. Ate only yogurt at lunch. Hyperglycemia stabilized quickly yesterday as stated electrolyte abnormalities. Renal function improved progressively and is better than it was at prior discharge. No chest pain or dyspnea. Levemir resumed last night, NovoLog resumed this morning although noon dose decreased to 10 units due to limited oral intake. Diabetes education provided focusing on sick day management (patient did not believe this was necessary but tolerated training) Patient insisted he was ready for discharge although I advised him his blood sugars have not stabilized and they remains at high risk for recurrent complications as he is not tolerating normal oral intake. He subsequently signed out AMA in the early afternoon. Blood pressure was persistently elevated through the hospitalization and the patient did permit initiation of lisinopril allowing me to write a prescription for the ABDULKADIR inhibitor prior to leaving the intensive care unit. Examination today demonstrated respirations to be nonlabored, breath sounds clear persistent low-grade tachycardia but regular cardiac rhythm and abdomen was soft although somewhat distended. Abdomen was nontender on exam today. Patient was advised that he should see his primary provider at [facility] in 1-2 days for reassessment. Time spent with patient: greater than 35 minutes Discharge Plan - Med Rec/Dispo Referrals/Follow Up: Masha Perez APRN [Family Provider] - 2 Days [facility] Instructions: Basic Carbohydrate Counting (DC), Managing Diabetes During Sick Days (DC) Prescriptions: New Lisinopril [Prinivil] 10 mg PO DAILY #30 tab Continue Insulin Aspart [Novolog Flexpen] 30 unit SQ AC15 #75 Insulin Detemir [Levemir] 40 unit SQ HS Discharge Instructions/Outpatient Orders: Provider Discharge Instructions Location: Determined By Patient - Disposition 07 Against Medical Advice
== END 2017-07-27 14:50 | disposition left against medical advice (07) | DRG 638 ==
LOC: ED 11:27 → CCU 14:21
PROVIDERS: ADMIT Internal Medicine; ATTEND Internal Medicine

== ENCOUNTER 2017-09-07 17:25 | Inpatient (IN) ==
[2017-09-07] MEDS ORDERED: NS 1,000 ML IV ONE (18:33)
[2017-09-07] MEDS: SALINE FLUSH 10ml SYRINGE IVF PRN (19:01)
--- OUTSIDE RECORDS SUMMARY | 2017-09-07 19:08 | External Medical Summary ---
[...] Start End Date Status Dosage Date Lantus [facility] 86000-247 100 UNIT/ML Active 35 units 0-33 Subcutaneous per day Once a day Humalog KwikPen [facility] 26599-996 100 UNIT/ML Active 23 units 9-01 Subcutaneous per meal three times a day Lisinopril [facility] 96018-565 20 MG Orally Aug 26, Active 1 tablet 8-01 Once a day 2013 Procedures Procedure Coding System Code Date OFFICE VISIT, EST-LOW COMPLEXITY (15 MIN.) CPT-4 02676 Aug 26, 2014 HEMOGLOBIN A1C, IN HOUSE CPT-4 82963 Aug 26, 2014 Vital Signs Date/Time: Aug [...]
[2017-09-07] MEDS ORDERED: ONDANSETRON 4 MG/2 ML INJECTION IVP ONE (19:30)
--- NOTE | 2017-09-07 19:31 | Emergency Department Report ---
General Adult HPI - General Chief complaint: Medical Emergency Stated complaint: diabetic issues, hbs Time Seen by Provider: 09/07/17 18:42 Source: patient Mode of arrival: ambulatory Limitations: no limitations - History of Present Illness HPI narrative: 61-year-old male presents to the emergency department with a chief complaint of hyperglycemia. Patient noted onset of symptoms over the past few days. Patient is a type I diabetic. Patient noticed that his blood sugar read high on his monitor earlier today around 3 PM and he took 50 units of his novolog at that time. He denies any pain or discomfort. Patient has noted occasional scattered episodes of nausea and vomiting without blood in the emesis. This is a typical exacerbation of hyperglycemia for the patient. No other complaints or associated symptoms. He was at home when his symptoms began. Symptoms have been persistent in nature since onset. - Related Data Home Medications Medication Instructions Recorded Confirmed Insulin Aspart [Novolog Flexpen] 30 unit SQ AC15 #75 12/03/16 09/07/17 Insulin Detemir [Levemir] 40 unit SQ HS 07/26/17 09/07/17 Lisinopril [Prinivil] 10 mg PO DAILY 09/07/17 09/07/17 Trazodone [Desyrel] 200 mg PO HS 09/07/17 09/07/17 Allergies Allergy/AdvReac Type Severity Reaction Status Date / Time No Known Allergies Allergy Unknown Verified 09/07/17 18:19 Review of Systems Constitutional: Denies: fever, chills Eyes: Denies: eye pain, vision change ENT: Denies: ear pain, throat pain Cardiovascular: Denies: chest pain, palpitations Respiratory: Denies: cough, dyspnea Gastrointestinal: Reports: nausea, vomiting. Denies: abdominal pain, diarrhea Genitourinary: Denies: urgency, dysuria Musculoskeletal: Denies: back pain, arthralgia Integumentary: Denies: erythema, rash Neurological: Denies: headache, numbness Psychiatric: Denies: anxiety, depression Endocrine: Denies: fatigue, heat or cold intolerance Hematological/Lymphatic: Denies: easy bleeding, easy bruising Allergic/Immunologic: Denies: facial swelling, urticaria PFSH Patient Stated Medical History Hypertension Yes Diabetes Mellitus Type 2 Yes Depression Yes Clinic Medical History DKA (diabetic ketoacidoses) (Acute Medical) DM2 (diabetes mellitus, type 2) (Acute Medical) Acute kidney injury (Acute Medical) Dehydration (Acute Medical) HTN (hypertension) (Acute Medical) Hyperkalemia (Acute Medical) Surgical History: Left lower leg ORIF Family History: Reviewed and Non-contributory. - Social History Smoking status: Current every day smoker Substance use type: does not use Alcohol intake frequency: does not drink Physical Exam - Limitations Limitations: no limitations - General General appearance: alert, in no apparent distress - Normal Exams: Head:: Normocephalic without trauma Eyes:: Pupils are PERRLA w/ EOMI, No scleral icterus, irritation, or foreign bodies noted ENMT:: No facial trauma, nasal exudates, pharyngeal erythema, or exudates are noted Dental: No fractured, loose, or missing teeth noted Neck:: Full range of motion, without adenopathy, JVD, bruits or thyromegaly Chest/Respirations:: Clear all fofana, with good airflow, and symmetry bilaterally Cardiovascular:: Regular rate and rhythm, without murmur or gallop, Pulses 2+ all extremities, capillary refill, <2 seconds all extremities Abdomen:: Bowel sounds positive, soft, non-tender, non-distended, no hepatosplenomegaly, masses or bruits noted Lymphatic:: No lymphadenopathy, or lymphedema noted Musculoskeletal:: No tenderness, or deformity noted, good range of motion, all extremities Integumentary:: No rashes, hives, or bruising noted, hair and nails, without abnormality Neurological:: Patient is alert, and oriented, cranial nerves, motor/sensory/ cerebellar, exams w/o gross deficits, to observation Psychiatric:: Patient exhibits, appropriate attention, emotion and affect Course Vital Signs Temperature 97.1 F 09/07/17 17:40 Pulse Rate 124 H 09/07/17 17:40 Respiratory Rate 20 09/07/17 17:40 Blood Pressure 144/91 H 09/07/17 17:40 Pulse Oximetry 98 09/07/17 17:40 Temperature 98.4 F 09/07/17 20:06 Pulse Rate 112 H 09/07/17 22:20 Respiratory Rate 18 09/07/17 22:20 Blood Pressure 150/96 H 09/07/17 20:06 Pulse Oximetry 98 09/07/17 22:20 Medical Decision Making - MDM Narrative Medical decision making narrative: Labs / imaging were discussed in detail with the patient and questions are answered. Patient is given 1 L of normal saline intravenously. Patient is given a 2nd liter at 250 mL/hr times one. Patient was discussed with Dr. Guillory and admitted to the service of the hospitalist in improved condition. Dr. Guillory will handle insulin administration at his request. Dr. Guillory requests that we do not administer insulin at this time in the emergency department and that he will handle the insulin orders / ABG. Patient is admitted to the service of the hospitalist in improved condition. Patient is in agreement with the current plan of management. No further orders from accepting physician who is in agreement with the current plan of management. EKG was reviewed with Dr. Prieto of cardiology. - Differential Diagnosis DKA, Hyperglycemia, Dehydration, Metabolic process - Lab Data Result diagrams: 09/07/17 18:33 09/07/17 18:33 Lab Results 09/07/17 09/07/17 09/07/17 Range/Units 18:33 18:33 18:33 WBC 7.7 (4.5-11.0) T/MM3 RBC 5.76 (4.50-5.90) M/MM3 Hgb 14.2 (13.5-17.5) GM/DL Hct 42.2 (41-53) % MCV 73.3 L (80-100) UM3 MCH 24.7 L (26-34) UUG MCHC 33.6 (31-37) GM/DL RDW Std Deviation 40.7 (36.9-50.2) FL Plt Count 190 (130-400) T/MM3 MPV 12.1 (9.4-12.4) UM3 Immature Gran % (Auto) 0.1 (0.0-0.5) % Neut % (Auto) 82.7 H (33-66) % Lymph % (Auto) 10.0 L (23-45) % [place] % (Auto) 7.2 (0-9.0) % Eos % (Auto) 0.0 (0-4) % Baso % (Auto) 0.0 (0-2) % Neut # (Auto) 6.3 (1.8-7.7) T/MM3 Lymph # (Auto) 0.8 L (1-4.8) T/MM3 [place] # (Auto) 0.6 (0-0.8) T/MM3 Eos # (Auto) 0.0 (0-0.5) T/MM3 Baso # (Auto) 0.0 (0-0.2) T/MM3 Abs Immat Gran (auto) 0.01 (0.00-0.03) T/MM3 Turbidity < 20 (0-20) Sodium 137 (134-144) MEQ/L Potassium 5.1 H (3.6-5) MEQ/L Chloride 95 L (98-107) MEQ/L Carbon Dioxide 22 (22-30) MEQ/L Anion Gap 20 H (5-15) MEQ/L BUN 92.0 H* (9-20) MG/DL Creatinine 3.1 H (0.8-1.5) MG/DL GFR Calculation 21 BUN/Creatinine Ratio 30 H (6-26) RATIO Glucose 555 H (75-110) MG/DL Hemoglobin A1c 10.8 H (6.1-7.9) % Calculated Osmolality 317 H (261-280) MOSM/KG Calcium 10.1 (8.4-10.2) MG/DL Total Bilirubin 1.00 (0.20-1.30) MG/DL Icterus Index < 2 (0-7) AST 86 H (17-59) U/L ALT 151 H (21-72) U/L Alkaline Phosphatase 130 H (38-126) U/L Troponin I 0.036 (0-0.12) ng/ml Total Protein 8.9 H (6.3-8.2) G/DL Albumin 5.1 H (3.5-5.0) G/DL Globulin 3.8 H (2.4-3.6) G/DL Albumin/Globulin Ratio 1.3 (1.1-2.2) RATIO Specimen Hemolysis < 15 (0-25) Ur Collection Type Urine Color (YELLOW) Urine Clarity Urine pH (5.0-8.0) Ur Specific Tanner (1.015-1.025) Urine Protein (NEGATIVE) Urine Glucose (UA) (NEGATIVE) Urine Ketones (NEGATIVE) Urine Occult Blood (NEGATIVE) Urine Nitrate (NEGATIVE) Urine Bilirubin (NEGATIVE) Urine Urobilinogen (NORMAL) EU/DL Ur Leukocyte Esterase (NEGATIVE) Urine RBC (0-3) /HPF Urine WBC (0-5) /HPF Urine Bacteria (NEGATIVE) Ur Culture Indicated? 09/07/17 Range/Units 19:22 WBC (4.5-11.0) T/MM3 RBC (4.50-5.90) M/MM3 Hgb (13.5-17.5) GM/DL Hct (41-53) % MCV (80-100) UM3 MCH (26-34) UUG MCHC (31-37) GM/DL RDW Std Deviation (36.9-50.2) FL Plt Count (130-400) T/MM3 MPV (9.4-12.4) UM3 Immature Gran % (Auto) (0.0-0.5) % Neut % (Auto) (33-66) % Lymph % (Auto) (23-45) % [place] % (Auto) (0-9.0) % Eos % (Auto) (0-4) % Baso % (Auto) (0-2) % Neut # (Auto) (1.8-7.7) T/MM3 Lymph # (Auto) (1-4.8) T/MM3 [place] # (Auto) (0-0.8) T/MM3 Eos # (Auto) (0-0.5) T/MM3 Baso # (Auto) (0-0.2) T/MM3 Abs Immat Gran (auto) (0.00-0.03) T/MM3 Turbidity (0-20) Sodium (134-144) MEQ/L Potassium (3.6-5) MEQ/L Chloride (98-107) MEQ/L Carbon Dioxide (22-30) MEQ/L Anion Gap (5-15) MEQ/L BUN (9-20) MG/DL Creatinine (0.8-1.5) MG/DL GFR Calculation BUN/Creatinine Ratio (6-26) RATIO Glucose (75-110) MG/DL Hemoglobin A1c (6.1-7.9) % Calculated Osmolality (261-280) MOSM/KG Calcium (8.4-10.2) MG/DL Total Bilirubin (0.20-1.30) MG/DL Icterus Index (0-7) AST (17-59) U/L ALT (21-72) U/L Alkaline Phosphatase (38-126) U/L Troponin I (0-0.12) ng/ml Total Protein (6.3-8.2) G/DL Albumin (3.5-5.0) G/DL Globulin (2.4-3.6) G/DL Albumin/Globulin Ratio (1.1-2.2) RATIO Specimen Hemolysis (0-25) Ur Collection Type Urine, clean catch Urine Color Yellow (YELLOW) Urine Clarity Clear Urine pH 5.5 (5.0-8.0) Ur Specific Tanner 1.010 L (1.015-1.025) Urine Protein Trace A (NEGATIVE) Urine Glucose (UA) 3+ A (NEGATIVE) Urine Ketones 1+ A (NEGATIVE) Urine Occult Blood 2+ A (NEGATIVE) Urine Nitrate Negative (NEGATIVE) Urine Bilirubin 1+ A (NEGATIVE) Urine Urobilinogen 0.2 (NORMAL) EU/DL Ur Leukocyte Esterase Negative (NEGATIVE) Urine RBC 0-1 (0-3) /HPF Urine WBC 0-1 (0-5) /HPF Urine Bacteria None seen (NEGATIVE) Ur Culture Indicated? Cult not indicated - Radiology Data CXR - No acute processes. - EKG Data EKG #1 EKG results narrative: Sinus Tachycardia. 117 bpm. NO STEMI. Similar to 02/23/17. Disposition Clinical Impression: Hyperglycemia, ZAID (acute kidney injury) [place] [facility] [place] Condition: Stable Time of Disposition: 19:30 - Seen By: physician
[2017-09-07] MEDS: NS 1,000 ML IV SCH (19:52)
[2017-09-07] MEDS ORDERED: ONDANSETRON 4 MG/2 ML INJECTION IVP PRN (20:14)
[2017-09-07 20:26] VITALS: BMI 24.1
--- NOTE | 2017-09-07 21:24 | History & Physical Report ---
History of Present Illness Date: 09/08/17 Chief complaint: weakness and high blood sugar HPI: Please note that the patient was admitted via telemedicine with nursing assistance on 09/07/2017 Mr. Espinosa is a 61yo man with h/o DM2 for 30 years on insulin, HTN, tobacco abuse, etoh abuse, no with a couple days of weakness, blood sugars over 500 with once down to 50s. Polyuria, nausea with emesis once this AM and hiccups. No diarrhea or abd pain, no fevers or chills. Mentation fine according to friend and boss at the bedside. No other med changes except took 50 units novolog instead of his normal 30u at 1530 after BS over 500 "high" on meter. Review of Systems All systems PM: 10-point ROS was reviewed, no additional remarkable complaints except PFSH Patient Stated Medical History Hypertension Yes Diabetes Mellitus Type 2 Yes Depression Yes Clinic Medical History DKA (diabetic ketoacidoses) (Acute Medical) Surgical History: Left lower leg ORIF - Social History Smoking status: Current every day smoker Medications Home Medications Medication Instructions Recorded Confirmed Type Insulin Aspart [Novolog Flexpen] 30 unit SQ AC15 #75 12/03/16 09/07/17 History Insulin Detemir [Levemir] 40 unit SQ HS 07/26/17 09/07/17 History Lisinopril [Prinivil] 10 mg PO DAILY 09/07/17 09/07/17 History Trazodone [Desyrel] 200 mg PO HS 09/07/17 09/07/17 History Allergies Allergy/AdvReac Type Severity Reaction Status Date / Time No Known Allergies Allergy Unknown Verified 09/07/17 18:19 Exam Vital Signs: Temperature 98.4 F 09/07/17 20:06 Pulse Rate 116 H 09/07/17 20:06 Respiratory Rate 16 09/07/17 20:06 Blood Pressure 150/96 H 09/07/17 20:06 Pulse Oximetry 97 09/07/17 20:06 Telemetry Rhythm: Sinus Rhythm Height/Weight/BMI: Height 1.75 m Weight 74.1 kg Body Mass Index 24.1 - Constitutional Present: mild distress - Routine HEENT Exam Head: Present: normocephalic, atraumatic Eye: Present: EOMI ENT: Present: mucous membranes dry - Routine Respiratory Exam Present: CTA bilaterally. Absent: accessory muscle use, respiratory distress - Routine Cardiovascular Exam Present: RRR, S1, S2, no murmur - Routine Abdominal Exam Present: soft, normoactive bowel sounds - Routine Extremities Exam Absent: cyanosis, clubbing - Routine Skin Exam Present: intact - Routine Neurological Exam Present: alert, oriented X3, CN II-XII intact Results - Labs CBC & Chem 7: 09/08/17 04:26 09/08/17 04:26 Assessment and Plan (1) DM2 (diabetes mellitus, type 2) Current visit: Yes Status: Acute (2) Acute kidney injury Current visit: Yes Status: Acute (3) Dehydration Current visit: Yes Status: Acute (4) HTN (hypertension) Current visit: Yes Status: Acute (5) Hyperkalemia Current visit: Yes Status: Acute Assessment and Plan: 1. DM2, poorly controlled with subsequent dehydration leading to 2. levemir 50units tonight and should likely be on more long acting and less short. Check A1C. Certainly has gastroparesis now too, and metochlopramide trial may be needed. 2. Dehydration and ZAID--NS aggressively and repeat AM labs. 3. Hyperkalemia due to 2 and lisinopril which should be held. 4. Essential HTN--see 3. 5. Tobacco abuse--needs to stop. Amazing has not had ACS or CVA already. 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 Camacho I have seen and examined the patient and reviewed the H&P above and agree. Please see my additions below. Chief complaint: Weakness, elevated blood sugar History of present illness: The patient is a pleasant 61-year-old man with diabetes type 2 diagnosed at age 25. He is a somewhat vague historian. He states his blood sugars have been high at least since Tuesday and possibly longer. He states he has not been able to eat for one week. He states he is even vomiting up water. He states he has not been able to sleep for 1 week. He states his primary care provider thinks he has depression. He states he does feel lonely but he is not certain if he is depressed or not. He denies any anxiety or suicidal ideation. He is on trazodone 200 mg at night but is still not sleeping. The patient states he has no appetite. He denies any abdominal pain. He has history of pancreatitis caused by alcohol in February 2017. He states he quit drinking shortly after that hospitalization. He presented to the emergency room last night and was found to have blood sugar over 500, 92, creatinine 3.1, and potassium of 5.1. He was not in DKA. He was started on IV fluids. He has had good urine output. Potassium has normalized. BUN and creatinine are improving. He was able to eat a little bit for breakfast today. He was given trazodone and lorazepam last night and still was not able to sleep. He has lost 6 kg in the past 1 month secondary to poor appetite. Comprehensive review of systems: Patient denies fevers chills or sweats, he denies any cough or cold symptoms, he denies any shortness of breath except when he is severely nauseated and retching. He denies any headache, chest pains or abdominal pains. He denies any pain anywhere. He denies any diarrhea or constipation. He denies any difficulties with urination. He has some chronic numbness and occasional pain in his feet likely from diabetic neuropathy. Otherwise, cooperative review of systems is negative other than the above in history of present illness. Past medical history: Type 2 diabetes mellitus diagnosed at age 25, diabetic neuropathy of the feet, possible chronic kidney disease, last creatinine was 1.3 , hypertension, history of DKA, reported congestive heart failure with ejection fraction of 35% in February 2017-the patient states he was unaware of this and does not see a community marketing manager, history of alcohol abuse, history of alcoholic pancreatitis in February 2017, hepatic steatosis Past surgical history: Left lower leg ORIF Social history: The patient smokes one half pack per day, he states he quit drinking alcohol 3 or 4 months ago, he states he works at a [employer] in [place] in the [employer] department Family history significant for mother having history of kidney failure and dialysis. She is . Father is and had history of diabetes Medications and allergies reviewed GEN-alert, oriented, no acute distress HEENT-normocephalic, atraumatic, pupils equal round and reactive, sclerae anicteric, oropharynx is moist NECK-supple, carotids are silent CV-regular rate and rhythm CHEST-clear to auscultation bilaterally ABD-soft, nontender, nondistended with positive bowel sounds -no Ferraro EXT-no edema NEURO-cranial nerves II through XII grossly intact, motor strength is equal laterally in the upper and lower extremities 5 over 5 SKIN-warm and dry and without rashes EKG reveals sinus tachycardia with heart rate of 117, moderate voltage for LVH, consider normal variant, possible anteroseptal infarct in V1 through V4, possibly acute MO Lab on admission was significant for BUN 92, creatinine 3.1, potassium 5.1, AST 86, ALT 151, alkaline phosphatase 1:30. Hemoglobin A1c is 10.1. Troponin 0.036 which is normal Repeat labs this morning shows BUN 57, creatinine 2.1, glucose 217 down from 555 last night. Impression Hyperglycemia with uncontrolled type 2 diabetes mellitus Acute kidney injury-improving Possible chronic kidney disease Hyperkalemia-resolved Abnormal EKG-possible acute MO, asymptomatic Reported abnormal echocardiogram with ejection fraction of 35% Nausea and vomiting-possible diabetic gastroparesis Weight loss of at least 6 kg in the past 1 month Insomnia-severe Possible depression Elevated liver enzymes with history of hepatic Steatosis History of alcoholism Tobacco addiction History of leaving AGAINST MEDICAL ADVICE Plan Monitor Accu-Cheks closely and increase insulin as needed Patient refuses to see an traveling plant operator at this time Diabetes education consultation with nurse, patient is agreeable to this Regarding acute kidney injury, continue IV fluids but at a lower rate, monitor basic metabolic profile Regarding abnormal EKG, will repeat EKG now, place on telemetry, repeat troponins Regarding nausea and vomiting-we'll obtain a gastric emptying study tomorrow, start Reglan before meals meals for possible diabetic gastroparesis, consider addition of Remeron which can help with diabetic gastroparesis symptoms and may also help with sleep and/or depression Consult Dr. Bergeron regarding possible depression, and to determine if Remeron can be added to the patient's current trazodone Check TSH and B 12 regarding peripheral neuropathy CMP tomorrow regarding elevated liver enzymes Overall, the patient appears to be improving since last night. He is somewhat resistant to my recommendations for further evaluation with specialists and further testing to determine the cause of his nausea and vomiting, poor sleep, poorly controlled diabetes. He has a history of leaving AGAINST MEDICAL ADVICE. He states when he was here the last time he thought he had too many tests and to many people were seeing him in order to make more money. I discussed with him that my goal is to control his diabetes well, decrease his likelihood of future complications such as heart disease, stroke, kidney failure, and amputation. My other goals are to help with his insomnia, possible depression, and inability to eat and drink. I discussed with him that evaluating these issues in determining the best treatment here in the hospital with help keep him healthy and hopefully prevent further hospitalizations. Greater than 1 hour spent seeing and evaluating the patient and determining care plan. DVT Prophylaxis: SCD's Hospital Course Summary Disclaimer: The visit summary below is not to be considered part of the above Progress Note.
[2017-09-07] MEDS: INSULIN DETEMIR 100unit/ml INJECTION SQ SCH (21:45)
[2017-09-07] MEDS ORDERED: TRAZODONE 100 MG TABLET PO SCH (22:00)
[2017-09-08] MEDS: NS 1,000 ML IV SCH ×6 (00:59→12:55)
--- NOTE | 2017-09-08 08:06 | XRay Report ---
INDICATION: dyspnea PROCEDURE: CHEST 2-VIEWS UPRIGHT (PA & LAT) Encounter: Initial COMPARISON: February 23, 2017 FINDINGS: The lungs are clear without evidence of focal abnormal airspace opacity. There is no pleural effusion or pneumothorax. The heart size, mediastinal contours and pulmonary vascularity are within normal limits. There is no significant skeletal abnormality. IMPRESSION: No acute cardiopulmonary disease. .
[2017-09-08] MEDS: INSULIN ASPART 100unit/ml INJECTION SQ SCH ×2 (13:13→19:11)
[2017-09-08] MEDS: ASPIRIN 325 MG TABLET PO SCH (15:45)
[2017-09-08] MEDS: CARVEDILOL 3.125 MG TABLET PO SCH (19:31)
[2017-09-08] MEDS: SALINE FLUSH 10ml SYRINGE IVF PRN (21:32)
[2017-09-08] MEDS: INSULIN DETEMIR 100unit/ml INJECTION SQ SCH (21:34)
[2017-09-08] MEDS: MIRTAZAPINE 15 MG TABLET PO SCH (21:35)
[2017-09-08] MEDS ORDERED: DEXTROSE 50% SYRINGE 50ml (1 AMP) IVP PRN (22:47)
[2017-09-08] MEDS ORDERED: GLUCOSE ORAL GEL 40% 37.5gm PO PRN (22:47)
[2017-09-08] MEDS: TRAZODONE 100 MG TABLET PO SCH (23:03)
[2017-09-08] MEDS: INSULIN ASPART 100unit/ml INJECTION SQ PRN (23:46)
[2017-09-09] MEDS: SALINE FLUSH 10ml SYRINGE IVF PRN (06:44)
[2017-09-09] MEDS: NS 1,000 ML IV SCH (07:34)
[2017-09-09] MEDS: MAG-AL + SIM ORAL LIQUID 30ml PO PRN (09:28)
[2017-09-09] MEDS: ASPIRIN 325 MG TABLET PO SCH (09:30)
[2017-09-09] MEDS: CARVEDILOL 3.125 MG TABLET PO SCH (09:30)
[2017-09-09] MEDS: INSULIN ASPART 100unit/ml INJECTION SQ SCH ×3 (09:30→18:20)
--- NOTE | 2017-09-09 09:35 | Nuclear Medicine Report ---
Indication: diabetes, vomiting, wt loss PROCEDURE: NM gastric emptying study: Encounter: Initial Comparison: None. Technique: The patient consumed a standard meal labeled with approximately 2.1 mCi of Tc-99m sulfur colloid. Anterior and posterior planar images were obtained and time/activity curves were calculated. Findings: Radiotracer is seen to progress normally from the gastric fundus to the antrum and into the small bowel. The calculated T-1/2 gastric emptying time is rapid at approximately 26 minutes (normal range 45-110 minutes). Impression: Rapid gastric emptying of uncertain significance. No evidence of gastroparesis. .
[2017-09-09] MEDS: INSULIN ASPART 100unit/ml INJECTION SQ PRN ×2 (11:25→22:24)
--- NOTE | 2017-09-09 17:02 | Progress Note ---
- Date 09/09/17 Subjective: F/U: Uncontrolled DM, ZAID, Feeling better today. Still with nausea and decreased appetite, but not as severe as before admission. Able to take some food in, but notes frequent dyspepsia. Bowels moving. No diarrhea. Breathing feels well-not SOA or congested , no cough. No chest pressure or pain. Not feeling dizzy or unsteady with positional changes. Sleeping more-feeling much better with sleeping. Objective Vital signs: Temperature 95.5 F L 09/09/17 15:30 Pulse Rate 97 09/09/17 16:42 Respiratory Rate 18 09/09/17 15:30 Blood Pressure 181/101 H 09/09/17 15:30 Pulse Oximetry 99 09/09/17 15:30 Height/Weight/BMI: Height 1.75 m Weight 76.9 kg Body Mass Index 24.1 - Constitutional Present: well nourished, well developed, average body habitus, cooperative. Absent: combative, agitated, somnolent, obtunded - Routine HEENT Exam Head: Present: normocephalic, atraumatic Eye: Present: EOMI, PERRL ENT: Present: mucous membranes moist - Routine Respiratory Exam Present: CTA bilaterally. Absent: rales, respiratory distress, rhonchi, stridor , wheezes, crackles - Routine Cardiovascular Exam Present: no murmur, tachycardia (No murmur ) - Routine Abdominal Exam Present: soft, non distended, non tender. Absent: normoactive bowel sounds ( Decreased ), guarding - Routine Extremities Exam Present: no edema, pulses intact. Absent: cyanosis - Routine Musculoskeletal Exam Musculoskeletal: Present: no clubbing or cyanosis, normal strength - Routine Skin Exam Present: dry, warm - Routine Neurological Exam Present: alert, CN II-XII intact, moving all extremities, vision grossly intact , hearing grossly intact, normal speech. Absent: motor deficit, altered mental status - Routine Psychiatric Exam Present: normal affect, normal thought process, cooperative. Absent: anxious, agitated Results - Labs CBC & Chem 7: 09/09/17 04:16 09/09/17 04:16 Assessment and Plan (1) DM2 (diabetes mellitus, type 2) Current visit: Yes Status: Acute (2) Acute kidney injury Current visit: Yes Status: Acute (3) Dehydration Current visit: Yes Status: Acute (4) HTN (hypertension) Current visit: Yes Status: Acute (5) Hyperkalemia Current visit: Yes Status: Acute Assessment and Plan: Impression Hyperglycemia with uncontrolled type 2 diabetes mellitus Acute kidney injury-improving Possible chronic kidney disease Hyperkalemia (POA) - resolved Hypokalemia (Not POA) Abnormal EKG-possible acute VT, asymptomatic Reported abnormal echocardiogram with ejection fraction of 35% Nausea and vomiting-possible diabetic gastroparesis Weight loss of at least 6 kg in the past 1 month Insomnia-severe Possible depression Elevated liver enzymes with history of hepatic Steatosis History of alcoholism Tobacco addiction History of leaving AGAINST MEDICAL ADVICE Plan Creatinine improved to 1.2. Potassium decreased to 3.0. BP still with elevation. Gastric emptying study showing normal emptying. Blood sugar with decrease this afternoon. Will decreased Levemir to 40mg at night and mealtime insulin to 26 units ( hold if not eating, as oral drive decreased). With BP and HR running high will increase Coreg to 6.25mg BID with meals. Dr Mcclain anticipates adding Imdur and Hydralazine for BP control. Dr Mcclain does recommend against ABDULKADIR/ARB due to his ZAID and hyperkalemia. Did have episode of ZAID and hyperkalemia when he was admitted for DKA earlier this year. Dr Mcclain also feels cardiac cath would be of benefit-will be discussing with patient about timing of this procedure. Lipitor 20mg recommended by Dr Mcclain-LFT trending down; will recheck LFT tomorrow and possible start Lipitor tomorrow. Oral potassium 20meg to help low potassium. Recheck potassium and magnesium in am. RT for tobacco cessation. Encourage ambulation - TID in room/halls with nursing. Case discussed with CM and Dr Blood - time spent with patient care 35 minutes. DVT Prophylaxis: SCD's Resuscitation Status: Full Code - Time spent with patient Time with patient PN: 35 minutes Hospital Course Summary Disclaimer: The visit summary below is not to be considered part of the above Progress Note. Hospital Course: Assessment and Plan: 1. DM2, poorly controlled with subsequent dehydration leading to 2. Levemir 50units tonight and should likely be on more long acting and less short. Check A1C. Certainly has gastroparesis now too, and metoclopramide trial may be needed. 2. Dehydration and ZAID--NS aggressively and repeat AM labs. 3. Hyperkalemia due to 2 and lisinopril which should be held. 4. Essential HTN--see 3. 5. Tobacco abuse--needs to stop. Amazing has not had ACS or CVA already. 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 Camacho Lab on admission was significant for BUN 92, creatinine 3.1, potassium 5.1, AST 86, ALT 151, alkaline phosphatase 1:30. Hemoglobin A1c is 10.1. Troponin 0.036 which is normal Repeat labs this morning shows BUN 57, creatinine 2.1, glucose 217 down from 555 last night. Impression Hyperglycemia with uncontrolled type 2 diabetes mellitus Acute kidney injury-improving Possible chronic kidney disease Hyperkalemia-resolved Abnormal EKG-possible acute VT, asymptomatic Reported abnormal echocardiogram with ejection fraction of 35% Nausea and vomiting-possible diabetic gastroparesis Weight loss of at least 6 kg in the past 1 month Insomnia-severe Possible depression Elevated liver enzymes with history of hepatic Steatosis History of alcoholism Tobacco addiction History of leaving AGAINST MEDICAL ADVICE Plan Monitor Accu-Cheks closely and increase insulin as needed Patient refuses to see an chronic condition nurse at this time Diabetes education consultation with nurse, patient is agreeable to this Regarding acute kidney injury, continue IV fluids but at a lower rate, monitor basic metabolic profile Regarding abnormal EKG, will repeat EKG now, place on telemetry, repeat troponins Regarding nausea and vomiting-we'll obtain a gastric emptying study tomorrow, start Reglan before meals meals for possible diabetic gastroparesis, consider addition of Remeron which can help with diabetic gastroparesis symptoms and may also help with sleep and/or depression Consult Dr. Bergeron regarding possible depression, and to determine if Remeron can be added to the patient's current trazodone Check TSH and B 12 regarding peripheral neuropathy CMP tomorrow regarding elevated liver enzymes Overall, the patient appears to be improving since last night. He is somewhat resistant to my recommendations for further evaluation with specialists and further testing to determine the cause of his nausea and vomiting, poor sleep, poorly controlled diabetes. He has a history of leaving AGAINST MEDICAL ADVICE. He states when he was here the last time he thought he had too many tests and to many people were seeing him in order to make more money. I discussed with him that my goal is to control his diabetes well, decrease his likelihood of future complications such as heart disease, stroke, kidney failure, and amputation. My other goals are to help with his insomnia, possible depression, and inability to eat and drink. I discussed with him that evaluating these issues in determining the best treatment here in the hospital with help keep him healthy and hopefully prevent further hospitalizations. Greater than 1 hour spent seeing and evaluating the patient and determining care plan. I did discuss the patient with Dr. Bergeron. She stated his trazodone could be increased to 150 or 200 mg at at bedtime. It looks like at home he had been on 200 mg at at bedtime. She agreed that he could start on Remeron 7.5 mg tonight. This will be initiated. Will increase his trazodone to 150 mg at at bedtime. The patient was found to have a low TSH of 0.04 and borderline tachycardia. Free T4 is pending and should be back tomorrow. If he is hyperthyroid, I would recommend endocrinology consultation. Regarding low ejection fraction noted on echocardiogram in February 2017, will repeat echocardiogram today and consult Dr. Mcclain. I talked with him and he will see the patient tomorrow. He did recommend initiating low-dose Coreg 3.125 mg by mouth twice a day. I did start the patient on aspirin 325 mg once daily. Will check lipid panel in the morning. Gastric emptying study will be done tomorrow. Patient updated on plans. 09/09/17 Creatinine improved to 1.2. Potassium decreased to 3.5. BP still with elevation. Gastric emptying study showing normal emptying. Blood sugar with decrease this afternoon. Will decreased Levemir to 40mg at night and mealtime insulin to 26 units ( hold if not eating, as oral drive decreased). With BP and HR running high will increase Coreg to 6.25mg BID with meals. Dr Mcclain anticipates adding Imdur and Hydralazine for BP control. Dr Mcclain does recommend against ABDULKADIR/ARB due to his ZAID and hyperkalemia. Did have episode of ZAID and hyperkalemia when he was admitted for DKA earlier this year. Dr Mcclain also feels cardiac cath would be of benefit-will be discussing with patient about timing of this procedure. Lipitor 20mg recommended by Dr Mcclain-LFT trending down; will recheck LFT tomorrow and possible start Lipitor tomorrow. Oral potassium 20meg to help low potassium. Recheck potassium and magnesium in am. RT for tobacco cessation. Encourage ambulation - TID in room/halls with nursing.
[2017-09-09] MEDS: CARVEDILOL 6.25 MG TABLET PO SCH (18:20)
--- NOTE | 2017-09-09 18:37 | Neuropsychiatric Consult ---
[facility] HPI Date: 09/09/17 Requesting Physician: Montse Camacho Reason for Consultation: Depression Start Time: 18:00 Stop Time: 18:30 History of Present Illness: HPI: 61 Y/O AA Male with a hx of DM admitted with DKA. PT states he had not been eating or sleeping for several days which he relates to feeling depressed. Pt states he now feels his mood is improving and he states "I just go through these spells". Pt denies any S/I. STRESSORS: Pt states he gets lonely around the holidays as all his family lives out of state. He states he has limited social support here. He also has financial concerns from past hospital stays. PSYCH ROS: Pt reports feeling depressed with low interest and motivation and some anhedonia at times. He reports difficulty falling and staying asleep. He denies any S/I. He reports some anxiety but feels it is mild. Denies lester or psychosis. PAST PSYCH: Pt is prescribed Trazodone but his PCP. He denies ever seeing a psychiatrist and has never tried to harm himself. SUBSTANCE ABUSE: Pt has a long hx of alcohol dependence but states he has been sober since June. [facility] Patient Stated Medical History Hypertension Yes Diabetes Mellitus Type 2 Yes Depression Yes Clinic Medical History DKA (diabetic ketoacidoses) (Acute Medical) DM2 (diabetes mellitus, type 2) (Acute Medical) Acute kidney injury (Acute Medical) Dehydration (Acute Medical) HTN (hypertension) (Acute Medical) Hyperkalemia (Acute Medical) Hyperglycemia (Acute Medical) Surgical History: Left lower leg ORIF - Social History Smoking status: Current every day smoker Review of Systems - Psychiatric Psychiatric: Present: abnormal sleep pattern, anhedonia, anxiety, depression Mental Status Exam Vitals: Last Vital Signs Temp 95.5 F L 09/09/17 15:30 Pulse 97 09/09/17 16:42 Resp 18 09/09/17 15:30 BP 181/101 H 09/09/17 15:30 Pulse Ox 99 09/09/17 15:30 Height: 1.75 m Weight: 76.9 kg - Mental Status Exam Muscle Strength/Tone: Normal Dressing: Casual Grooming: Good Attitude: Cooperative Motor Activity: Normal Eye Contact: Good Speech: Normal Volume: Normal Rhythm: Appropriate Rhythm Orientation: Oriented X4 Mood: Depressed Affect: Bright Rate of Thoughts: Appropriate Rate Thought Organization: Organized Associations: Intact Abstract Reasoning: Intact, able to abstract Thought Content: Normal Perception/Psychotic: Perception Normal Memory: Grossly Intact Suicidal Ideation: None Homicidal Ideation: None Insight: Fair Judgement: Fair Impulse Control: Good - Laboratory Result Diagrams: 09/09/17 04:16 09/09/17 04:16 Laboratory Results - last 24 hr 09/08/17 09/08/17 09/08/17 04:26 04:26 19:07 WBC RBC Hgb Hct MCV MCH MCHC RDW Std Deviation Plt Count MPV Immature Gran % (Auto) Neut % (Auto) Lymph % (Auto) [place] % (Auto) Eos % (Auto) Baso % (Auto) Neut # (Auto) Lymph # (Auto) [place] # (Auto) Eos # (Auto) Baso # (Auto) Abs Immat Gran (auto) Turbidity Sodium Potassium Chloride Carbon Dioxide Anion Gap BUN Creatinine GFR Calculation BUN/Creatinine Ratio Glucose Glucometer 226 Calculated Osmolality Calcium Total Bilirubin Icterus Index AST ALT Alkaline Phosphatase Total Protein Albumin Globulin Albumin/Globulin Ratio Triglycerides Cholesterol LDL Cholesterol, Calc VLDL Cholesterol HDL Cholesterol Cholesterol/HDL Ratio Vitamin B12 837 Free T4 1.45 Specimen Hemolysis 09/08/17 09/09/17 09/09/17 21:28 04:16 04:16 WBC 5.9 RBC 4.56 Hgb 11.3 L Hct 34.5 L MCV 75.7 L MCH 24.8 L MCHC 32.8 RDW Std Deviation 40.3 Plt Count 124 L MPV 10.8 Immature Gran % (Auto) 0.3 Neut % (Auto) 53.2 Lymph % (Auto) 38.2 [place] % (Auto) 7.8 Eos % (Auto) 0.5 Baso % (Auto) 0.0 Neut # (Auto) 3.1 Lymph # (Auto) 2.3 [place] # (Auto) 0.5 Eos # (Auto) 0.0 Baso # (Auto) 0.0 Abs Immat Gran (auto) 0.02 Turbidity < 20 Sodium 141 Potassium 3.3 L Chloride 108 H Carbon Dioxide 25 Anion Gap 8 BUN 26.0 H D Creatinine 1.2 D GFR Calculation 62 BUN/Creatinine Ratio 22 Glucose 66 L Glucometer 223 Calculated Osmolality 274 Calcium 8.8 Total Bilirubin 0.80 Icterus Index < 2 AST 56 ALT 89 H Alkaline Phosphatase 74 D Total Protein 6.3 Albumin 3.2 L Globulin 3.1 Albumin/Globulin Ratio 1.0 L Triglycerides 179 H Cholesterol 168 LDL Cholesterol, Calc 89.2 VLDL Cholesterol 35.8 H HDL Cholesterol 43 Cholesterol/HDL Ratio 3.9 Vitamin B12 Free T4 Specimen Hemolysis < 15 09/09/17 09/09/17 09/09/17 06:31 09:19 11:03 WBC RBC Hgb Hct MCV MCH MCHC RDW Std Deviation Plt Count MPV Immature Gran % (Auto) Neut % (Auto) Lymph % (Auto) [place] % (Auto) Eos % (Auto) Baso % (Auto) Neut # (Auto) Lymph # (Auto) [place] # (Auto) Eos # (Auto) Baso # (Auto) Abs Immat Gran (auto) Turbidity Sodium Potassium Chloride Carbon Dioxide Anion Gap BUN Creatinine GFR Calculation BUN/Creatinine Ratio Glucose Glucometer 76 151 187 Calculated Osmolality Calcium Total Bilirubin Icterus Index AST ALT Alkaline Phosphatase Total Protein Albumin Globulin Albumin/Globulin Ratio Triglycerides Cholesterol LDL Cholesterol, Calc VLDL Cholesterol HDL Cholesterol Cholesterol/HDL Ratio Vitamin B12 Free T4 Specimen Hemolysis 09/09/17 09/09/17 15:35 15:59 WBC RBC Hgb Hct MCV MCH MCHC RDW Std Deviation Plt Count MPV Immature Gran % (Auto) Neut % (Auto) Lymph % (Auto) [place] % (Auto) Eos % (Auto) Baso % (Auto) Neut # (Auto) Lymph # (Auto) [place] # (Auto) Eos # (Auto) Baso # (Auto) Abs Immat Gran (auto) Turbidity Sodium Potassium Chloride Carbon Dioxide Anion Gap BUN Creatinine GFR Calculation BUN/Creatinine Ratio Glucose Glucometer 42 116 Calculated Osmolality Calcium Total Bilirubin Icterus Index AST ALT Alkaline Phosphatase Total Protein Albumin Globulin Albumin/Globulin Ratio Triglycerides Cholesterol LDL Cholesterol, Calc VLDL Cholesterol HDL Cholesterol Cholesterol/HDL Ratio Vitamin B12 Free T4 Specimen Hemolysis Assessment and Plan (1) Major depressive disorder with current active episode Qualifiers: Major depression recurrence: recurrent Major depression episode severity: moderate Qualified Code(s): F33.1 - Major depressive disorder, recurrent, moderate Current visit: Yes Status: Acute Continue Trazodone. Agree with Remeron. Discussed with pt how Remeron could help with mood along with sleep and appetite and pt was in agreement. Pt has plans to see an OP therapist at [facility]
--- NOTE | 2017-09-09 19:38 | Echocardiogram ---
DATE OF STUDY 09/08/2017 INDICATIONS Congestive heart failure. Cardiomyopathy ? ischemic? Alcoholic- patient has quit alcohol since. TECHNICAL QUALITY Technically adequate 2D, M-mode, Doppler echocardiographic images were submitted for interpretation. FINDINGS 1. CARDIAC CHAMBERS: All cardiac chamber measurements are normal. RV size and contractility appear normal. Aortic root diameter is normal. 2. LEFT VENTRICLE: Analysis reveals [id number] concentric LVH. Wall motion analysis is abnormal. Posterior and inferior wall appear markedly hypokinetic to akinetic. Papillary muscle hypertrophy is present. The anteroseptal wall appears hypokinetic as well. The anterior wall exhibits mild- to-moderate hypokinesis. The inferior wall exhibits increased echogenicity. There is left ventricular systolic dysfunction suggested to be ischemic based on regional wall motion abnormality. Accurate LVEF may be difficult to get but it is estimated about 35%. RV contractility appears normal. The best moving segments of the left ventricle are in the inferolateral wall/LCX territory. 3. VALVES: Aortic and mitral valves exhibit minimal sclerosis, normal valve excursion. Tricuspid valve structure and motion appear normal, normal valve excursion. 4. DOPPLER: Trace regurgitation involving mitral and tricuspid valves. Mild diastolic dysfunction grade 1/4 is present. Normal flow velocities. Trivial whiff of aortic regurgitation. 5. No evidence of intracardiac masses, thrombi, vegetations or shunts. IMPRESSION 1. Moderate cardiomyopathy suggested to be ischemic based on regional wall motion abnormality as described above with global LVEF estimated about 35%. 2. Mild diastolic dysfunction. 3. No significant valvular dysfunction. 4. Limited subcostal views. IVC is not well seen. MTDD
[2017-09-09] MEDS ORDERED: INSULIN DETEMIR 100unit/ml INJECTION SQ SCH (21:00)
[2017-09-09] MEDS ORDERED: LISINOPRIL 5 MG TABLET PO SCH (21:00)
--- NOTE | 2017-09-09 22:14 | Cardiology Consult Note ---
History of Present Illness Consult reason: congestive heart failure History of present illness: 61-year-old -[place] male [facility] history of poor appetite and heartburn sensation that starts in the epigastric area and goes HIS chest brought on by eating anything or drinking even water , it is at times associated with some dyspnea. She also descibes some orthopnea last few days. He does not exercise or do exertional activity. has a sedentary job .He denies exertional angina. Denies lower extremity edema. Denies known heart attacks or previous heart catheterization. He denies lower extremity edema. No palpitations or syncope. No strokes or cancer.no CP when up in his room or using BR. He reports having had an unremarkable stress test about 10 years ago. He used to enjoy running and biking but stopped 2 years ago .His job does not include physical exertion. He suffers from depression. He used to drink alcohol heavily on weekends and slowed down for several years ,although the last time was 3 months ago he says. Had multiple hospitalizations with acute kidney failure DKA and severe hyperkalemia. Admitted this time with dehydration , kidney injury with hyperkalemia ,anorexia nausea and the chest discomfort as described above with a burning sensation. Treated successfully with IV hydration and is feeling much . His creatinine is down to normal today. Lisinopril was stopped and was ordered to be resumed. I was asked to see regarding abnormal echocardiogram which showed moderate cardiomyopathy. His hemoglobin dropped since admission with IV hydration.denies hematochezia melena or coffee ground emesis/hematemesis Review of Systems All systems PM: 10-point ROS was reviewed, no additional remarkable complaints except - Gastrointestinal Gastrointestinal: Present: as per HPI. Absent: change in bowel habits - Neurological Neurological: Absent: abnormal speech, focal weakness, loss of vision - Psychiatric Psychiatric: Present: abnormal sleep pattern (insomnia), depression - Endocrine Endocrine: Absent: palpitations PFSH Patient Stated Medical History Hypertension Yes Diabetes Mellitus Type 2 Yes Depression Yes Clinic Medical History DKA (diabetic ketoacidoses) (Acute Medical) DM2 (diabetes mellitus, type 2) (Acute Medical) Acute kidney injury (Acute Medical) Dehydration (Acute Medical) HTN (hypertension) (Acute Medical) Hyperkalemia (Acute Medical) Hyperglycemia (Acute Medical) Major depressive disorder with current active episode (Acute Medical) Surgical History: Left lower leg ORIF Family History: One younger brother from alcohol overdose Second younger brother was also alcoholic and at age 49 on first day of hemodialysis, which raises suspicion for PA. Patient is unaware of heart disease in the family - Social History Smoking status: Current every day smoker (1 pack a day) Substance use type: does not use Alcohol intake frequency: former alcohol drinker (1 of 2 bottles of hard liquor on weekends has done that for several years less than was 3 months ago and he states that he quit) Current residence: Apartment/Private Home Medications Home Medications Medication Instructions Recorded Confirmed Type Insulin Aspart [Novolog Flexpen] 30 unit SQ AC15 #75 12/03/16 09/07/17 History Trazodone [Desyrel] 200 mg PO HS 09/07/17 09/07/17 History Allergies Allergy/AdvReac Type Severity Reaction Status Date / Time No Known Allergies Allergy Unknown Verified 09/07/17 18:19 Exam Vital signs: Temperature 95.5 F L 09/09/17 15:30 Pulse Rate 97 09/09/17 16:42 Respiratory Rate 18 09/09/17 15:30 Blood Pressure 181/101 H 09/09/17 15:30 Pulse Oximetry 99 09/09/17 15:30 - Constitutional no acute distress, well nourished, well developed - Routine HEENT Exam Head: Present: normocephalic, atraumatic Eye: Present: EOMI, PERRL ENT: Present: mucous membranes moist Nose: moist mucous membranes - Routine Neck Exam Present: normal carotid upstroke. Absent: JVD, carotid bruit, lymphadenopathy, thyromegaly - Routine Chest/Breast/Axilla Exam Chest wall: Absent: tenderness, mass - Routine Respiratory Exam Present: CTA bilaterally (generally), wheezes (rare On the left side) - Routine Cardiovascular Exam Present: RRR, no murmur, S4. Absent: JVD - Routine Abdominal Exam Present: soft, normoactive bowel sounds, non tender, distended (mildly versus overuse). Absent: organomegaly - Routine Extremities Exam Present: no edema, pulses intact, normal capillary refill. Absent: cyanosis, clubbing - Routine Back/Spine/Pelvis Exam Back/Spine: Present: full ROM - Routine Skin Exam Present: intact, dry. Absent: cyanosis, erythema - Routine Neurological Exam Present: alert, oriented X3, CN II-XII intact, moving all extremities, vision grossly intact, hearing grossly intact, normal speech. Absent: motor deficit, hemineglect, facial asymmetry - Routine Psychiatric Exam Present: normal affect, normal thought process, cooperative, good judgment. Absent: depressed, anxious Results 09/11/17 04:27 09/11/17 04:27 Cardiac Enzymes 09/09/17 Range/Units 04:16 AST 56 (17-59) U/L Lipids 09/09/17 Range/Units 04:16 Triglycerides 179 H (40-160) MG/DL Cholesterol 168 (132-199) MG/DL HDL Cholesterol 43 (40-60) MG/DL Cholesterol/HDL Ratio 3.9 (0-5.0) RATIO CBC 09/09/17 Range/Units 04:16 WBC 5.9 (4.5-11.0) T/MM3 RBC 4.56 (4.50-5.90) M/MM3 Hgb 11.3 L (13.5-17.5) GM/DL Hct 34.5 L (41-53) % Plt Count 124 L (130-400) T/MM3 Neut # (Auto) 3.1 (1.8-7.7) T/MM3 Lymph # (Auto) 2.3 (1-4.8) T/MM3 [place] # (Auto) 0.5 (0-0.8) T/MM3 Eos # (Auto) 0.0 (0-0.5) T/MM3 Baso # (Auto) 0.0 (0-0.2) T/MM3 Comprehensive Metabolic Panel 09/09/17 Range/Units 04:16 Sodium 141 (134-144) MEQ/L Potassium 3.3 L (3.6-5) MEQ/L Chloride 108 H (98-107) MEQ/L Carbon Dioxide 25 (22-30) MEQ/L BUN 26.0 H D (9-20) MG/DL Creatinine 1.2 D (0.8-1.5) MG/DL Glucose 66 L (75-110) MG/DL Calcium 8.8 (8.4-10.2) MG/DL AST 56 (17-59) U/L ALT 89 H (21-72) U/L Alkaline Phosphatase 74 D (38-126) U/L Total Protein 6.3 (6.3-8.2) G/DL Albumin 3.2 L (3.5-5.0) G/DL Intake and Output 09/09/17 09/09/17 09/09/17 06:59 14:59 22:59 Intake Total 150 / 150 1780 / 1780 Output Total 600 / 600 500 / 500 350 / 350 Balance -450 / -450 1280 / 1280 -350 / -350 Intake: Oral 150 / 150 1780 / 1780 Output: Urine 600 / 600 500 / 500 350 / 350 Other: Urine Appearance Clear Clear Clear Urine Color Straw Yellow Yellow Weight 76.9 kg Patient Weight 09/10/17 06:59 Weight 76.9 kg Normal troponins - Imaging and Cardiology Echo: report reviewed EKG results: report reviewed - EKG Interpretation EKG: sinus rhythm (nonspecific ST-T abnormality in inferior leads, septal Q waves with a chronic mild ST elevation consistent with a previous PA) EKG shows: sinus rhythm (with PACs on the monitor. First 24 hours patient was in sinus tachycardia. 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 Atypical chest pain Dyspnea and PND Dehydration with acute kidney injury Recurrent acute kidney injury with severe hyperkalemia and history of DKA History of alcoholism Tobacco abuse Depression Family history suspicious for premature PA Elevated liver enzymes Hypertension Dyslipidemia Noncompliance Insulin-dependent diabetes mellitus 30 years Hemoglobin drop appears to be dilutional As discussed below was initiated and will titrate up slowly to 6.25 mg twice a day today and then again next 48 hours tolerates No ABDULKADIR inhibitor is recommended patient with recurrent hyperkalemia and history of present illness risk outweighs the benefit Alternative his dietary therapy for heart failure as well as hypertension, namely Imdur 30 mg daily hydralazine 25 mg 3 times a day started Heart failure education Smoking cessation education As discussed with you statin therapy start soon when his liver enzymes go down with primary service, and as such as Lipitor 40 milligrams daily Good volume status at present time The patient's heart failure to progress LV ejection fraction of atypical chest pain he's advised to undergo cardiac catheterization. Would not have been advisable today just recovered from a acute kidney injury. Will plan for Tuesday , if patient becomes unstable transfer to [place] for emergency heart catheter, at present time it doesn't appear to be the case I discussed with the patient the indication alternatives risks and benefits and is willing to proceed including a potential for acute renal failure from contrast in addition to vascular damage hematoma risk of PA stroke or Aspirin for coronary artery disease LifeVest regarding ischemic cardiopathy depressed ejection fraction to lower his risk of sudden cardiac patient is in agreement So advised on avoiding alcohol Low-dose Lovenox for now ,due to chest pain and coronary artery disease. Watch hemoglobin and clinical course Thank you for consultation I'll see the patient on 09-10-2017 for follow-up Call for questions please Hospital Course Summary Disclaimer: The visit summary below is not to be considered part of the above Progress Note. Hospital Course: Assessment and Plan: 1. DM2, poorly controlled with subsequent dehydration leading to 2. Levemir 50units tonight and should likely be on more long acting and less short. Check A1C. Certainly has gastroparesis now too, and metoclopramide trial may be needed. 2. Dehydration and ZAID--NS aggressively and repeat AM labs. 3. Hyperkalemia due to 2 and lisinopril which should be held. 4. Essential HTN--see 3. 5. Tobacco abuse--needs to stop. Amazing has not had ACS or CVA already. 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 Camacho Lab on admission was significant for BUN 92, creatinine 3.1, potassium 5.1, AST 86, ALT 151, alkaline phosphatase 1:30. Hemoglobin A1c is 10.1. Troponin 0.036 which is normal Repeat labs this morning shows BUN 57, creatinine 2.1, glucose 217 down from 555 last night. Impression Hyperglycemia with uncontrolled type 2 diabetes mellitus Acute kidney injury-improving Possible chronic kidney disease Hyperkalemia-resolved Abnormal EKG-possible acute PA, asymptomatic Reported abnormal echocardiogram with ejection fraction of 35% Nausea and vomiting-possible diabetic gastroparesis Weight loss of at least 6 kg in the past 1 month Insomnia-severe Possible depression Elevated liver enzymes with history of hepatic Steatosis History of alcoholism Tobacco addiction History of leaving AGAINST MEDICAL ADVICE Plan Monitor Accu-Cheks closely and increase insulin as needed Patient refuses to see an legal recruiter at this time Diabetes education consultation with nurse, patient is agreeable to this Regarding acute kidney injury, continue IV fluids but at a lower rate, monitor basic metabolic profile Regarding abnormal EKG, will repeat EKG now, place on telemetry, repeat troponins Regarding nausea and vomiting-we'll obtain a gastric emptying study tomorrow, start Reglan before meals meals for possible diabetic gastroparesis, consider addition of Remeron which can help with diabetic gastroparesis symptoms and may also help with sleep and/or depression Consult Dr. Bergeron regarding possible depression, and to determine if Remeron can be added to the patient's current trazodone Check TSH and B 12 regarding peripheral neuropathy CMP tomorrow regarding elevated liver enzymes Overall, the patient appears to be improving since last night. He is somewhat resistant to my recommendations for further evaluation with specialists and further testing to determine the cause of his nausea and vomiting, poor sleep, poorly controlled diabetes. He has a history of leaving AGAINST MEDICAL ADVICE. He states when he was here the last time he thought he had too many tests and to many people were seeing him in order to make more money. I discussed with him that my goal is to control his diabetes well, decrease his likelihood of future complications such as heart disease, stroke, kidney failure, and amputation. My other goals are to help with his insomnia, possible depression, and inability to eat and drink. I discussed with him that evaluating these issues in determining the best treatment here in the hospital with help keep him healthy and hopefully prevent further hospitalizations. Greater than 1 hour spent seeing and evaluating the patient and determining care plan. I did discuss the patient with Dr. Bergeron. She stated his trazodone could be increased to 150 or 200 mg at at bedtime. It looks like at home he had been on 200 mg at at bedtime. She agreed that he could start on Remeron 7.5 mg tonight. This will be initiated. Will increase his trazodone to 150 mg at at bedtime. The patient was found to have a low TSH of 0.04 and borderline tachycardia. Free T4 is pending and should be back tomorrow. If he is hyperthyroid, I would recommend endocrinology consultation. Regarding low ejection fraction noted on echocardiogram in February 2017, will repeat echocardiogram today and consult Dr. Mcclain. I talked with him and he will see the patient tomorrow. He did recommend initiating low-dose Coreg 3.125 mg by mouth twice a day. I did start the patient on aspirin 325 mg once daily. Will check lipid panel in the morning. Gastric emptying study will be done tomorrow. Patient updated on plans. 09/09/17 Creatinine improved to 1.2. Potassium decreased to 3.5. BP still with elevation. Gastric emptying study showing normal emptying. Blood sugar with decrease this afternoon. Will decreased Levemir to 40mg at night and mealtime insulin to 26 units ( hold if not eating, as oral drive decreased). With BP and HR running high will increase Coreg to 6.25mg BID with meals. Dr Mcclain anticipates adding Imdur and Hydralazine for BP control. Dr Mcclain does recommend against ABDULKADIR/ARB due to his ZAID and hyperkalemia. Did have episode of ZAID and hyperkalemia when he was admitted for DKA earlier this year. Dr Mcclain also feels cardiac cath would be of benefit-will be discussing with patient about timing of this procedure. Lipitor 20mg recommended by Dr Mcclain-LFT trending down; will recheck LFT tomorrow and possible start Lipitor tomorrow. Oral potassium 20meg to help low potassium. Recheck potassium and magnesium in am. RT for tobacco cessation. Encourage ambulation - TID in room/halls with nursing.
[2017-09-09] MEDS: MIRTAZAPINE 15 MG TABLET PO SCH (22:22)
[2017-09-09] MEDS: TRAZODONE 100 MG TABLET PO SCH (22:22)
[2017-09-09] MEDS: HYDRALAZINE 25 MG TABLET PO SCH (22:50)
[2017-09-10] MEDS: ISOSORBIDE MONONITRATE ER 30 MG TABLET PO SCH (06:06)
[2017-09-10] MEDS: INSULIN ASPART 100unit/ml INJECTION SQ PRN ×3 (07:39→21:58)
[2017-09-10] MEDS: INSULIN ASPART 100unit/ml INJECTION SQ SCH ×4 (07:44→18:25)
[2017-09-10] MEDS: ASPIRIN 325 MG TABLET PO SCH (08:56)
[2017-09-10] MEDS: HYDRALAZINE 25 MG TABLET PO SCH ×3 (08:56→17:35)
[2017-09-10] MEDS: CARVEDILOL 6.25 MG TABLET PO SCH ×2 (08:56→17:35)
[2017-09-10] MEDS: ENOXAPARIN 40 MG/0.4 ML INJECTION SQ SCH (08:57)
[2017-09-10] MEDS ORDERED: MAGNESIUM OXIDE 400 MG TABLET PO ONE ×2 (09:19→17:30)
--- NOTE | 2017-09-10 13:28 | Progress Note ---
- Date 09/10/17 Subjective: F/U: Uncontrolled DM, ZAID, Feeling better. Able to eat more-noted appetite still decrease (difficult to find foods that are appealing). No nausea, but some dyspepsia. Bowels moving- reports normal stool today. Breathing feels stable-no SOA or congested. No cough. No chest pain or palpitations. Not up much, but not feeling dizzy/ unsteady when up. Objective Vital signs: Temperature 98 F 09/10/17 07:48 Pulse Rate 91 09/10/17 12:16 Respiratory Rate 18 09/10/17 07:48 Blood Pressure 102/65 09/10/17 12:16 Pulse Oximetry 97 09/10/17 07:48 Height/Weight/BMI: Height 1.75 m Weight 78.5 kg Body Mass Index 24.1 - Constitutional Present: well nourished, well developed, average body habitus, cooperative - Routine HEENT Exam Head: Present: normocephalic, atraumatic Eye: Present: EOMI, PERRL ENT: Present: mucous membranes moist - Routine Respiratory Exam Present: CTA bilaterally. Absent: rales, respiratory distress, rhonchi, wheezes , crackles - Routine Cardiovascular Exam Present: RRR, no murmur - Routine Abdominal Exam Present: soft, normoactive bowel sounds, non distended, non tender. Absent: guarding - Routine Extremities Exam Present: no edema, pulses intact. Absent: cyanosis, clubbing - Routine Musculoskeletal Exam Musculoskeletal: Present: no clubbing or cyanosis, normal strength - Routine Skin Exam Present: dry, warm - Routine Neurological Exam Present: alert, oriented X3, CN II-XII intact, moving all extremities, vision grossly intact, hearing grossly intact, normal speech. Absent: motor deficit, altered mental status - Routine Psychiatric Exam Present: normal affect, normal thought process, cooperative, good insight, good judgment. Absent: anxious, agitated Results - Labs CBC & Chem 7: 09/10/17 04:48 09/10/17 04:48 Assessment and Plan (1) DM2 (diabetes mellitus, type 2) Current visit: Yes Status: Acute (2) Acute kidney injury Current visit: Yes Status: Acute (3) Dehydration Current visit: Yes Status: Acute (4) HTN (hypertension) Current visit: Yes Status: Acute (5) Hyperkalemia Current visit: Yes Status: Acute Assessment and Plan: Impression Hyperglycemia with uncontrolled type 2 diabetes mellitus Acute kidney injury-improving Possible chronic kidney disease Hyperkalemia (POA) - resolved Hypokalemia (Not POA) Abnormal EKG-possible acute [place], asymptomatic Reported abnormal echocardiogram with ejection fraction of 35% Nausea and vomiting-possible diabetic gastroparesis Weight loss of at least 6 kg in the past 1 month Insomnia-severe Possible depression Elevated liver enzymes with history of hepatic Steatosis History of alcoholism Tobacco addiction History of leaving AGAINST MEDICAL ADVICE Plan Creatinine stable at 1.2. Potassium low at 3.5. Magnesium 1.5. Additional 20mEg potassium today and MagOx 400mg x2. Oral drive improving - sugars with elevation. Will increase Levemir to 42 units at night. Sleeping at night still problematic. Will continue with Trazodone and Remeron. Blood pressure showing improvement with Imdur 30mg ac breakfast and Hydralazine 25mg TIDWM. Dr Mcclain anticipating cath on Tuesday. Patient also needing [employer] Life-Vest. Did have long discussion with patient about cath and life vest. Discussed reasoning behind cath, how it is done, and potential complications. Discussed rational for Life-Vest and potential benefits. Questions answer. Patient voices agreement with these interventions. Liver enzymes still with elevation - will recheck tomorrow. Hold on initiating Lipitor for now. Recheck CMP and Mg in am secondary to medication use, resolving ZAID, and hypomagnesemia. Continue with supportive care. Case discussed with CM - time spent with patient care 35 minutes. DVT Prophylaxis: Lovenox Resuscitation Status: Full Code Hospital Course Summary Disclaimer: The visit summary below is not to be considered part of the above Progress Note. Hospital Course: Assessment and Plan: 1. DM2, poorly controlled with subsequent dehydration leading to 2. Levemir 50units tonight and should likely be on more long acting and less short. Check A1C. Certainly has gastroparesis now too, and metoclopramide trial may be needed. 2. Dehydration and ZAID--NS aggressively and repeat AM labs. 3. Hyperkalemia due to 2 and lisinopril which should be held. 4. Essential HTN--see 3. 5. Tobacco abuse--needs to stop. Amazing has not had ACS or CVA already. 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 Camacho Lab on admission was significant for BUN 92, creatinine 3.1, potassium 5.1, AST 86, ALT 151, alkaline phosphatase 1:30. Hemoglobin A1c is 10.1. Troponin 0.036 which is normal Repeat labs this morning shows BUN 57, creatinine 2.1, glucose 217 down from 555 last night. Impression Hyperglycemia with uncontrolled type 2 diabetes mellitus Acute kidney injury-improving Possible chronic kidney disease Hyperkalemia-resolved Abnormal EKG-possible acute [place], asymptomatic Reported abnormal echocardiogram with ejection fraction of 35% Nausea and vomiting-possible diabetic gastroparesis Weight loss of at least 6 kg in the past 1 month Insomnia-severe Possible depression Elevated liver enzymes with history of hepatic Steatosis History of alcoholism Tobacco addiction History of leaving AGAINST MEDICAL ADVICE Plan Monitor Accu-Cheks closely and increase insulin as needed Patient refuses to see an manager respiratory at this time Diabetes education consultation with nurse, patient is agreeable to this Regarding acute kidney injury, continue IV fluids but at a lower rate, monitor basic metabolic profile Regarding abnormal EKG, will repeat EKG now, place on telemetry, repeat troponins Regarding nausea and vomiting-we'll obtain a gastric emptying study tomorrow, start Reglan before meals meals for possible diabetic gastroparesis, consider addition of Remeron which can help with diabetic gastroparesis symptoms and may also help with sleep and/or depression Consult Dr. Bergeron regarding possible depression, and to determine if Remeron can be added to the patient's current trazodone Check TSH and B 12 regarding peripheral neuropathy CMP tomorrow regarding elevated liver enzymes Overall, the patient appears to be improving since last night. He is somewhat resistant to my recommendations for further evaluation with specialists and further testing to determine the cause of his nausea and vomiting, poor sleep, poorly controlled diabetes. He has a history of leaving AGAINST MEDICAL ADVICE. He states when he was here the last time he thought he had too many tests and to many people were seeing him in order to make more money. I discussed with him that my goal is to control his diabetes well, decrease his likelihood of future complications such as heart disease, stroke, kidney failure, and amputation. My other goals are to help with his insomnia, possible depression, and inability to eat and drink. I discussed with him that evaluating these issues in determining the best treatment here in the hospital with help keep him healthy and hopefully prevent further hospitalizations. Greater than 1 hour spent seeing and evaluating the patient and determining care plan. I did discuss the patient with Dr. Bergeron. She stated his trazodone could be increased to 150 or 200 mg at at bedtime. It looks like at home he had been on 200 mg at at bedtime. She agreed that he could start on Remeron 7.5 mg tonight. This will be initiated. Will increase his trazodone to 150 mg at at bedtime. The patient was found to have a low TSH of 0.04 and borderline tachycardia. Free T4 is pending and should be back tomorrow. If he is hyperthyroid, I would recommend endocrinology consultation. Regarding low ejection fraction noted on echocardiogram in February 2017, will repeat echocardiogram today and consult Dr. Mcclain. I talked with him and he will see the patient tomorrow. He did recommend initiating low-dose Coreg 3.125 mg by mouth twice a day. I did start the patient on aspirin 325 mg once daily. Will check lipid panel in the morning. Gastric emptying study will be done tomorrow. Patient updated on plans. 09/09/17 Creatinine improved to 1.2. Potassium decreased to 3.5. BP still with elevation. Gastric emptying study showing normal emptying. Blood sugar with decrease this afternoon. Will decreased Levemir to 40mg at night and mealtime insulin to 26 units ( hold if not eating, as oral drive decreased). With BP and HR running high will increase Coreg to 6.25mg BID with meals. Dr Mcclain anticipates adding Imdur and Hydralazine for BP control. Dr Mcclain does recommend against ABDULKADIR/ARB due to his ZAID and hyperkalemia. Did have episode of ZAID and hyperkalemia when he was admitted for DKA earlier this year. Dr Mcclain also feels cardiac cath would be of benefit-will be discussing with patient about timing of this procedure. Lipitor 20mg recommended by Dr Mcclain-LFT trending down; will recheck LFT tomorrow and possible start Lipitor tomorrow. Oral potassium 20meg to help low potassium. Recheck potassium and magnesium in am. RT for tobacco cessation. Encourage ambulation - TID in room/halls with nursing. 09/10/17 Creatinine stable at 1.2. Potassium low at 3.5. Magnesium 1.5. Additional 20mEg potassium today and MagOx 400mg x2. Oral drive improving - sugars with elevation. Will increase Levemir to 42 units at night. Sleeping at night still problematic. Will continue with Trazodone and Remeron. Blood pressure showing improvement with Imdur 30mg ac breakfast and Hydralazine [address] Mcclain anticipating cath on Tuesday. Patient also needing [employer] Life-Vest. Did have long discussion with patient about cath and life vest. Discussed reasoning behind cath, how it is done, and potential complications. Discussed rational for Life-Vest and potential benefits. Questions answer. Patient voices agreement with these interventions. Liver enzymes still with elevation - will recheck tomorrow. Hold on initiating Lipitor for now. Recheck CMP and Mg in am secondary to medication use, resolving ZAID, and hypomagnesemia. Continue with supportive care.
[2017-09-10] MEDS: MAG-AL + SIM ORAL LIQUID 30ml PO PRN (17:34)
--- NOTE | 2017-09-10 17:57 | Cardiology Progress Note ---
Subjective Interval history: Mr. Espinosa has no complaints today. Denies chest pain pressure dyspnea orthopnea or dizziness. He has some question about the LifeVest I answered him referred him to discuss further with the [employer] RN . He had a 4.5 second pause followed by sinus bradycardia about 50 heart rate was back to normal, no significant ST depression or elevation on the monitor. This occurred this morning around 6 AM while lying in bed. He says he was awake at that time and nurse Checked on him and was told about it. He said he felt perfectly normal denies feeling dizzy or lightheaded. His no had any syncope or dizziness. No note from the nurse and the chart. I wasn't notified. She denies snoring or apnea history. He says he has not had any sleep last night despite taking trazodone. As a matter of fact he says he has not had any sleep has not been eating or drinking for a week prior to going the hospital. He looks quite refreshed and as pleasant and conversational as ever. When I through in the possibility of needing a pacemaker says he wouldn't be interested. He got up and washed "bird bath" referring to the sink. He was up standing and has not had any dizziness pressure readings are noted to be significantly lower than yesterday. Dizzy gets indigestion and middle of his chest lasting for about 10 seconds after eating or drinking anything a lot of water and does not have her with activity. He is coming back whenever he eats or drinks anything. No dysphagia finding himself eating cut food into small pieces/bites. He is concerned about financial obligations as well. Available labs I&O's weight was 6 reviewed in detail His weight is up but he doesn't manifest any hypervolemia on exam. Was clearly dehydrated and in acute kidney injury when he came in Telemetry normal sinus rhythm occasional PAC and 4.5 second pause this morning as described above but no bradycardia or pauses since Exam Vital signs: Temperature 98.8 F 09/10/17 16:02 Pulse Rate 96 09/10/17 16:02 Respiratory Rate 16 09/10/17 16:02 Blood Pressure 113/76 09/10/17 16:02 Pulse Oximetry 98 09/10/17 16:02 - Constitutional no acute distress, other (no orthopnea) - Routine HEENT Exam Head: Present: normocephalic, atraumatic Eye: Present: EOMI, PERRL ENT: Present: mucous membranes moist - Routine Neck Exam Present: normal carotid upstroke. Absent: JVD, carotid bruit, lymphadenopathy, thyromegaly - Routine Respiratory Exam Present: CTA bilaterally - Routine Cardiovascular Exam Present: RRR, no murmur, S4. Absent: S3, JVD - Routine Abdominal Exam Present: soft, normoactive bowel sounds, non tender, distended (mildly distended ? Small ascites) - Routine Extremities Exam Present: no edema, pulses intact, normal capillary refill. Absent: cyanosis, clubbing - Routine Skin Exam Present: intact, dry. Absent: cyanosis, erythema - Routine Neurological Exam Present: alert, oriented X3, CN II-XII intact, moving all extremities, vision grossly intact, hearing grossly intact, normal speech. Absent: hemineglect, facial asymmetry - Routine Psychiatric Exam Present: normal affect, normal thought process, cooperative, good insight, good judgment. Absent: depressed, anxious Results 09/10/17 04:48 09/10/17 04:48 Cardiac Enzymes 09/10/17 Range/Units 04:48 AST 67 H (17-59) U/L CBC 09/10/17 Range/Units 04:48 WBC 5.6 (4.5-11.0) T/MM3 RBC 4.68 (4.50-5.90) M/MM3 Hgb 11.6 L (13.5-17.5) GM/DL Hct 35.3 L (41-53) % Plt Count 111 L (130-400) T/MM3 Neut # (Auto) 2.7 (1.8-7.7) T/MM3 Lymph # (Auto) 2.3 (1-4.8) T/MM3 [place] # (Auto) 0.6 (0-0.8) T/MM3 Eos # (Auto) 0.1 (0-0.5) T/MM3 Baso # (Auto) 0.0 (0-0.2) T/MM3 Comprehensive Metabolic Panel 09/10/17 Range/Units 04:48 Sodium 138 (134-144) MEQ/L Potassium 3.5 L (3.6-5) MEQ/L Chloride 105 (98-107) MEQ/L Carbon Dioxide 27 (22-30) MEQ/L BUN 18.0 (9-20) MG/DL Creatinine 1.2 (0.8-1.5) MG/DL Glucose 182 H (75-110) MG/DL Calcium 8.8 (8.4-10.2) MG/DL AST 67 H (17-59) U/L ALT 87 H (21-72) U/L Alkaline Phosphatase 78 (38-126) U/L Total Protein 6.3 (6.3-8.2) G/DL Albumin 3.2 L (3.5-5.0) G/DL Intake and Output 09/10/17 09/10/17 09/10/17 06:59 14:59 22:59 Intake Total 525 / 525 900 / 900 Output Total 500 / 500 Balance 525 / 525 400 / 400 Intake: Oral 525 / 525 900 / 900 Output: Urine 500 / 500 Other: Urine Appearance Clear Urine Color Yellow Urine Odor Normal # Voids 1 Weight 78.5 kg Patient Weight 09/11/17 06:59 Weight 78.5 kg - Imaging and Cardiology Echo: report reviewed - EKG Interpretation EKG: sinus rhythm, no acute changes Assessment and Plan - Assessment and Plan Moderate ischemic cardio myopathy LVEF of 35%/chronic systolic heart failure compensated Sinus node arrest 4.5 second pause appears asymptomatic Old silent [place] Atypical chest pain . Appears GI Dyspnea and PND improved Dehydration with acute kidney injury Recurrent acute kidney injury with severe hyperkalemia and history of DKA History of alcoholism Tobacco abuse Depression Family history suspicious for premature [place] Elevated liver enzymes Hypertension Dyslipidemia Noncompliance Insulin-dependent diabetes mellitus 30 years Hemoglobin drop appears to be dilutional After careful consideration and discussion ,decided to keep his beta pretty dose the same We will lower his hydralazine due to a quick drop in his blood pressure compared with yesterday Overnight oximetry due to his pause Also discussed the potential need for pacemaker patient didn't seem interested. We will simply watch for recurrence No ABDULKADIR inhibitor is recommended patient with recurrent hyperkalemia and history of present illness risk outweighs the benefit Alternative vasodilator therapy for heart failure as well as hypertension, namely Imdur 30 mg daily hydralazine 25 mg 3 times a day started Heart failure education Smoking cessation education As discussed with you statin therapy start soon when his liver enzymes go down with primary service, and as such as Lipitor 40 milligrams daily Good volume status at present time The patient's heart failure to progress LV ejection fraction of atypical chest pain he's advised to undergo cardiac catheterization. Would not have been advisable today just recovered from a acute kidney injury. Will plan for Tuesday , if patient becomes unstable transfer to [facility] for emergency heart catheter, at present time it doesn't appear to be the case I discussed with the patient the indication alternatives risks and benefits and is willing to proceed including a potential for acute renal failure from contrast in addition to vascular damage hematoma risk of [place] stroke or Aspirin for coronary artery disease LifeVest regarding ischemic cardiopathy depressed ejection fraction to lower his risk of sudden cardiac patient is in agreement So advised on avoiding alcohol Low-dose Lovenox for now ,due to chest pain and coronary artery disease. Watch hemoglobin and clinical course Make sure he is on acid suppressing treatment, he may benefit from EGD at some point Please call me with cardiovascular concerns as I may not be in on September [address] Gaines and Meredith MANN Electrolyte abnormalities treated by primary service Has mild thrombocytopenia suspect related to liver disease , will continue Lovenox low-dose Taken the liberty of adding proton pump inhibitor patient's indigestion and possible need for anticoagulation in the next few days for coronary revascularization. Smoking cessation counseling ordered Hospital Course Summary Disclaimer: The visit summary below is not to be considered part of the above Progress Note. Hospital Course: Assessment and Plan: 1. DM2, poorly controlled with subsequent dehydration leading to 2. Levemir 50units tonight and should likely be on more long acting and less short. Check A1C. Certainly has gastroparesis now too, and metoclopramide trial may be needed. 2. Dehydration and ZAID--NS aggressively and repeat AM labs. 3. Hyperkalemia due to 2 and lisinopril which should be held. 4. Essential HTN--see 3. 5. Tobacco abuse--needs to stop. Amazing has not had ACS or CVA already. 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 Camacho Lab on admission was significant for BUN 92, creatinine 3.1, potassium 5.1, AST 86, ALT 151, alkaline phosphatase 1:30. Hemoglobin A1c is 10.1. Troponin 0.036 which is normal Repeat labs this morning shows BUN 57, creatinine 2.1, glucose 217 down from 555 last night. Impression Hyperglycemia with uncontrolled type 2 diabetes mellitus Acute kidney injury-improving Possible chronic kidney disease Hyperkalemia-resolved Abnormal EKG-possible acute [place], asymptomatic Reported abnormal echocardiogram with ejection fraction of 35% Nausea and vomiting-possible diabetic gastroparesis Weight loss of at least 6 kg in the past 1 month Insomnia-severe Possible depression Elevated liver enzymes with history of hepatic Steatosis History of alcoholism Tobacco addiction History of leaving AGAINST MEDICAL ADVICE Plan Monitor Accu-Cheks closely and increase insulin as needed Patient refuses to see an cook cold meat at this time Diabetes education consultation with nurse, patient is agreeable to this Regarding acute kidney injury, continue IV fluids but at a lower rate, monitor basic metabolic profile Regarding abnormal EKG, will repeat EKG now, place on telemetry, repeat troponins Regarding nausea and vomiting-we'll obtain a gastric emptying study tomorrow, start Reglan before meals meals for possible diabetic gastroparesis, consider addition of Remeron which can help with diabetic gastroparesis symptoms and may also help with sleep and/or depression Consult Dr. Bergeron regarding possible depression, and to determine if Remeron can be added to the patient's current trazodone Check TSH and B 12 regarding peripheral neuropathy CMP tomorrow regarding elevated liver enzymes Overall, the patient appears to be improving since last night. He is somewhat resistant to my recommendations for further evaluation with specialists and further testing to determine the cause of his nausea and vomiting, poor sleep, poorly controlled diabetes. He has a history of leaving AGAINST MEDICAL ADVICE. He states when he was here the last time he thought he had too many tests and to many people were seeing him in order to make more money. I discussed with him that my goal is to control his diabetes well, decrease his likelihood of future complications such as heart disease, stroke, kidney failure, and amputation. My other goals are to help with his insomnia, possible depression, and inability to eat and drink. I discussed with him that evaluating these issues in determining the best treatment here in the hospital with help keep him healthy and hopefully prevent further hospitalizations. Greater than 1 hour spent seeing and evaluating the patient and determining care plan. I did discuss the patient with Dr. Bergeron. She stated his trazodone could be increased to 150 or 200 mg at at bedtime. It looks like at home he had been on 200 mg at at bedtime. She agreed that he could start on Remeron 7.5 mg tonight. This will be initiated. Will increase his trazodone to 150 mg at at bedtime. The patient was found to have a low TSH of 0.04 and borderline tachycardia. Free T4 is pending and should be back tomorrow. If he is hyperthyroid, I would recommend endocrinology consultation. Regarding low ejection fraction noted on echocardiogram in February 2017, will repeat echocardiogram today and consult Dr. Mcclain. I talked with him and he will see the patient tomorrow. He did recommend initiating low-dose Coreg 3.125 mg by mouth twice a day. I did start the patient on aspirin 325 mg once daily. Will check lipid panel in the morning. Gastric emptying study will be done tomorrow. Patient updated on plans. 09/09/17 Creatinine improved to 1.2. Potassium decreased to 3.5. BP still with elevation. Gastric emptying study showing normal emptying. Blood sugar with decrease this afternoon. Will decreased Levemir to 40mg at night and mealtime insulin to 26 units ( hold if not eating, as oral drive decreased). With BP and HR running high will increase Coreg to 6.25mg BID with meals. Dr Mcclain anticipates adding Imdur and Hydralazine for BP control. Dr Mcclain does recommend against ABDULKADIR/ARB due to his ZAID and hyperkalemia. Did have episode of ZAID and hyperkalemia when he was admitted for DKA earlier this year. Dr Mcclain also feels cardiac cath would be of benefit-will be discussing with patient about timing of this procedure. Lipitor 20mg recommended by Dr Mcclain-LFT trending down; will recheck LFT tomorrow and possible start Lipitor tomorrow. Oral potassium 20meg to help low potassium. Recheck potassium and magnesium in am. RT for tobacco cessation. Encourage ambulation - TID in room/halls with nursing. 09/10/17 Creatinine stable at 1.2. Potassium low at 3.5. Magnesium 1.5. Additional 20mEg potassium today and MagOx 400mg x2. Oral drive improving - sugars with elevation. Will increase Levemir to 42 units at night. Sleeping at night still problematic. Will continue with Trazodone and Remeron. Blood pressure showing improvement with Imdur 30mg ac breakfast and Hydralazine [address] Mcclain anticipating cath on Tuesday. Patient also needing [employer] Life-Vest. Did have long discussion with patient about cath and life vest. Discussed reasoning behind cath, how it is done, and potential complications. Discussed rational for Life-Vest and potential benefits. Questions answer. Patient voices agreement with these interventions. Liver enzymes still with elevation - will recheck tomorrow. Hold on initiating Lipitor for now. Recheck CMP and Mg in am secondary to medication use, resolving ZAID, and hypomagnesemia. Continue with supportive care.
[2017-09-10] MEDS: PANTOPRAZOLE 40 MG TABLET PO SCH (18:29)
[2017-09-10] MEDS ORDERED: INSULIN DETEMIR 100unit/ml INJECTION SQ SCH (21:00)
[2017-09-10] MEDS: MIRTAZAPINE 15 MG TABLET PO SCH (21:22)
[2017-09-10] MEDS: TRAZODONE 100 MG TABLET PO SCH (21:23)
[2017-09-11] MEDS: ISOSORBIDE MONONITRATE ER 30 MG TABLET PO SCH (05:52)
[2017-09-11] MEDS: PANTOPRAZOLE 40 MG TABLET PO SCH (05:52)
[2017-09-11] MEDS: INSULIN ASPART 100unit/ml INJECTION SQ PRN ×2 (05:59→12:03)
[2017-09-11] MEDS: HYDRALAZINE 10 MG TABLET PO SCH ×2 (08:53→12:03)
[2017-09-11] MEDS: ASPIRIN 325 MG TABLET PO SCH (08:53)
[2017-09-11] MEDS: CARVEDILOL 6.25 MG TABLET PO SCH (08:54)
[2017-09-11] MEDS: ENOXAPARIN 40 MG/0.4 ML INJECTION SQ SCH (08:54)
[2017-09-11] MEDS: INSULIN ASPART 100unit/ml INJECTION SQ SCH (08:55)
[2017-09-11] MEDS: MAGNESIUM SULFATE 1gm PREMIX 1 GM/100 ML BAG IV SCH ×2 (10:04→11:10)
[2017-09-11] MEDS ORDERED: INSULIN ASPART 100unit/ml INJECTION SQ SCH (12:00)
[2017-09-11 14:55] VITALS: BP 120/75; PULSE 94; RESP 18; TEMP 97.4; O2SAT 97
--- NOTE | 2017-09-11 15:42 | Progress Note ---
- Date 09/11/17 Subjective: F/U: Uncontrolled DM, ZAID Feeling well today. Breathing without difficulty. No chest pain. Eating well- not having nausea or ab pain. Urinating well. No f/c. Reports he has though over the heart cath and life vest. While he knows these interventions are important, he does not feel he can take on the financial burden. Does not want to have cath on Tuesday. Does understand potential risks associated with not proceeding (possible sudden cardiac from arrhythmia). Is willing to continue with medications initiated during this hospitalization. Voices desire to increase his activities-plans light activities such as walking or biking. Anticipate avoidance of alcohol. When discussed about smoking cessation, he reports 'that will be the challenge.' Objective Vital signs: Temperature 97.4 F 09/11/17 14:53 Pulse Rate 94 09/11/17 14:53 Respiratory Rate 18 09/11/17 14:53 Blood Pressure 120/75 09/11/17 14:53 Pulse Oximetry 97 09/11/17 14:53 Height/Weight/BMI: Height 1.75 m Weight 79.1 kg Body Mass Index 24.1 - Constitutional Present: no acute distress, well nourished, well developed, average body habitus , cooperative. Absent: combative, agitated - Routine HEENT Exam Head: Present: normocephalic, atraumatic Eye: Present: EOMI, PERRL ENT: Present: mucous membranes moist - Routine Respiratory Exam Present: CTA bilaterally. Absent: rales, respiratory distress, rhonchi, wheezes , crackles - Routine Cardiovascular Exam Present: RRR, no murmur - Routine Abdominal Exam Present: soft, normoactive bowel sounds, non distended, non tender. Absent: guarding - Routine Extremities Exam Present: no edema, pulses intact. Absent: cyanosis, clubbing - Routine Musculoskeletal Exam Musculoskeletal: Present: no clubbing or cyanosis, normal strength - Routine Neurological Exam Present: alert, oriented X3, CN II-XII intact, moving all extremities, vision grossly intact, hearing grossly intact, normal speech. Absent: motor deficit, altered mental status - Routine Psychiatric Exam Present: normal affect, normal thought process, cooperative. Absent: anxious, agitated Results - Labs CBC & Chem 7: 09/11/17 04:27 09/11/17 04:27 Assessment and Plan (1) DM2 (diabetes mellitus, type 2) Current visit: Yes Status: Acute (2) Acute kidney injury Current visit: Yes Status: Acute (3) Dehydration Current visit: Yes Status: Acute (4) HTN (hypertension) Current visit: Yes Status: Acute (5) Hyperkalemia Current visit: Yes Status: Acute Assessment and Plan: Impression Hyperglycemia with uncontrolled type 2 diabetes mellitus Acute kidney injury-improving Possible chronic kidney disease Hyperkalemia (POA) - resolved Hypokalemia (Not POA) Abnormal EKG-possible acute ND, asymptomatic Reported abnormal echocardiogram with ejection fraction of 35% Nausea and vomiting-possible diabetic gastroparesis Weight loss of at least 6 kg in the past 1 month Insomnia-severe Possible depression Elevated liver enzymes with history of hepatic steatosis History of alcoholism Tobacco addiction History of leaving AGAINST MEDICAL ADVICE Plan Lab doing well: Creatinine stable at 1.1. Potassium normalized at 4.0. Magnesium 1.6. Dr Mcclain ordered 2 grams of IV magnesium to help maintain magnesium level. Will continue oral MagOx 400mg once a day. Liver enzymes still with elevation: AST [address] Mcclain does recommend low dose statin medication (Lipitor 20mg) Will need monitoring of liver enzymes. Oral drive improving - sugars still showing elevation. Will increase Levemir to 45 units at night. Discussed with patient about monitoring blood sugars at home. Encourage diabetic diet with minimization of carbohydrate to help his glycemia control. Sleeping improving. Will continue with Trazodone and Remeron. Blood pressure stable with Imdur 30mg ac breakfast and Hydralazine 25mg TIDWM. Discussed at length with patient about benefits of undergoing cath and obtaining life vest. Discussed risks of not proceeding. He adamantly feels he can not take on that financial burden at this time. Does polity decline these interventions. Discussed with Dr Mcclain. While not the best treatment approach, Dr Mcclain will see patient in outpatient setting to continue the dialogue. With patient declining for heart cath and life vest, do feel he is medically stable for discharge to home. Encouraged alcohol and tobacco avoidance. [facility] Will need recheck CMP at that time secondary to elevated liver enzymes and medication use. See orders for details. Time spent with patient care and discharge greater than 30 minutes. DVT Prophylaxis: Lovenox Resuscitation Status: Full Code - Time spent with patient Time with patient PN: 35 minutes Hospital Course Summary Disclaimer: The visit summary below is not to be considered part of the above Progress Note. Hospital Course: Assessment and Plan: 1. DM2, poorly controlled with subsequent dehydration leading to 2. Levemir 50units tonight and should likely be on more long acting and less short. Check A1C. Certainly has gastroparesis now too, and metoclopramide trial may be needed. 2. Dehydration and ZAID--NS aggressively and repeat AM labs. 3. Hyperkalemia due to 2 and lisinopril which should be held. 4. Essential HTN--see 3. 5. Tobacco abuse--needs to stop. Amazing has not had ACS or CVA already. 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 Camacho Lab on admission was significant for BUN 92, creatinine 3.1, potassium 5.1, AST 86, ALT 151, alkaline phosphatase 1:30. Hemoglobin A1c is 10.1. Troponin 0.036 which is normal Repeat labs this morning shows BUN 57, creatinine 2.1, glucose 217 down from 555 last night. Impression Hyperglycemia with uncontrolled type 2 diabetes mellitus Acute kidney injury-improving Possible chronic kidney disease Hyperkalemia-resolved Abnormal EKG-possible acute ND, asymptomatic Reported abnormal echocardiogram with ejection fraction of 35% Nausea and vomiting-possible diabetic gastroparesis Weight loss of at least 6 kg in the past 1 month Insomnia-severe Possible depression Elevated liver enzymes with history of hepatic Steatosis History of alcoholism Tobacco addiction History of leaving AGAINST MEDICAL ADVICE Plan Monitor Accu-Cheks closely and increase insulin as needed Patient refuses to see an senior portfolio analyst at this time Diabetes education consultation with nurse, patient is agreeable to this Regarding acute kidney injury, continue IV fluids but at a lower rate, monitor basic metabolic profile Regarding abnormal EKG, will repeat EKG now, place on telemetry, repeat troponins Regarding nausea and vomiting-we'll obtain a gastric emptying study tomorrow, start Reglan before meals meals for possible diabetic gastroparesis, consider addition of Remeron which can help with diabetic gastroparesis symptoms and may also help with sleep and/or depression Consult Dr. Bergeron regarding possible depression, and to determine if Remeron can be added to the patient's current trazodone Check TSH and B 12 regarding peripheral neuropathy CMP tomorrow regarding elevated liver enzymes Overall, the patient appears to be improving since last night. He is somewhat resistant to my recommendations for further evaluation with specialists and further testing to determine the cause of his nausea and vomiting, poor sleep, poorly controlled diabetes. He has a history of leaving AGAINST MEDICAL ADVICE. He states when he was here the last time he thought he had too many tests and to many people were seeing him in order to make more money. I discussed with him that my goal is to control his diabetes well, decrease his likelihood of future complications such as heart disease, stroke, kidney failure, and amputation. My other goals are to help with his insomnia, possible depression, and inability to eat and drink. I discussed with him that evaluating these issues in determining the best treatment here in the hospital with help keep him healthy and hopefully prevent further hospitalizations. Greater than 1 hour spent seeing and evaluating the patient and determining care plan. I did discuss the patient with Dr. Bergeron. She stated his trazodone could be increased to 150 or 200 mg at at bedtime. It looks like at home he had been on 200 mg at at bedtime. She agreed that he could start on Remeron 7.5 mg tonight. This will be initiated. Will increase his trazodone to 150 mg at at bedtime. The patient was found to have a low TSH of 0.04 and borderline tachycardia. Free T4 is pending and should be back tomorrow. If he is hyperthyroid, I would recommend endocrinology consultation. Regarding low ejection fraction noted on echocardiogram in February 2017, will repeat echocardiogram today and consult Dr. Mcclain. I talked with him and he will see the patient tomorrow. He did recommend initiating low-dose Coreg 3.125 mg by mouth twice a day. I did start the patient on aspirin 325 mg once daily. Will check lipid panel in the morning. Gastric emptying study will be done tomorrow. Patient updated on plans. 09/09/17 Creatinine improved to 1.2. Potassium decreased to 3.5. BP still with elevation. Gastric emptying study showing normal emptying. Blood sugar with decrease this afternoon. Will decreased Levemir to 40mg at night and mealtime insulin to 26 units ( hold if not eating, as oral drive decreased). With BP and HR running high will increase Coreg to 6.25mg BID with meals. Dr Mcclain anticipates adding Imdur and Hydralazine for BP control. Dr Mcclain does recommend against ABDULKADIR/ARB due to his ZAID and hyperkalemia. Did have episode of ZAID and hyperkalemia when he was admitted for DKA earlier this year. Dr Mcclain also feels cardiac cath would be of benefit-will be discussing with patient about timing of this procedure. Lipitor 20mg recommended by Dr Mcclain-LFT trending down; will recheck LFT tomorrow and possible start Lipitor tomorrow. Oral potassium 20meg to help low potassium. Recheck potassium and magnesium in am. RT for tobacco cessation. Encourage ambulation - TID in room/halls with nursing. 09/10/17 Creatinine stable at 1.2. Potassium low at 3.5. Magnesium 1.5. Additional 20mEg potassium today and MagOx 400mg x2. Oral drive improving - sugars with elevation. Will increase Levemir to 42 units at night. Sleeping at night still problematic. Will continue with Trazodone and Remeron. Blood pressure showing improvement with Imdur 30mg ac breakfast and Hydralazine [address]WM[address] Mcclain anticipating cath on Tuesday. Patient also needing [employer] Life-Vest. Did have long discussion with patient about cath and life vest. Discussed reasoning behind cath, how it is done, and potential complications. Discussed rational for Life-Vest and potential benefits. Questions answer. Patient voices agreement with these interventions. Liver enzymes still with elevation - will recheck tomorrow. Hold on initiating Lipitor for now. Recheck CMP and Mg in am secondary to medication use, resolving ZAID, and hypomagnesemia. Continue with supportive care. 09/11/17 Patient is feeling well today. Breathing without difficulty. No chest pain. Eating well-not having nausea or ab pain. Urinating well. No f/c. Reports he has though over the heart cath and life vest. While he knows these interventions are important, he does not feel he can take on the financial burden. Does not want to have cath on Tuesday. Does understand potential risks associated with not proceeding (possible sudden cardiac from arrhythmia). Is willing to continue with medications initiated during this hospitalization. Voices desire to increase his activities-plans light activities such as walking or biking. Anticipate avoidance of alcohol. When discussed about smoking cessation, he reports 'that will be the challenge.' Lab doing well: Creatinine stable at 1.1. Potassium normalized at 4.0. Magnesium 1.6. Dr Mcclain ordered 2 grams of IV magnesium to help maintain magnesium level. Will continue oral MagOx 400mg once a day. Liver enzymes still with elevation: AST [address] Mcclain does recommend low dose statin medication (Lipitor 20mg) Will need monitoring of liver enzymes. Oral drive improving - sugars still showing elevation. Will increase Levemir to 45 units at night. Discussed with patient about monitoring blood sugars at home. Encourage diabetic diet with minimization of carbohydrate to help his glycemia control. Sleeping improving. Will continue with Trazodone and Remeron. Blood pressure stable with Imdur 30mg ac breakfast and Hydralazine 25mg TIDWM. Discussed at length with patient about benefits of undergoing cath and obtaining life vest. Discussed risks of not proceeding. He adamantly feels he can not take on that financial burden at this time. Does polity decline these interventions. Discussed with Dr Mcclain. While not the best treatment approach, Dr Mcclain will see patient in outpatient setting to continue the dialogue. With patient declining for heart cath and life vest, do feel he is medically stable for discharge to home. Encourage alcohol and tobacco avoidance. [facility] Will need recheck CMP at that time secondary to elevated liver enzymes and medication use. See orders for details.
--- NOTE | 2017-09-11 16:17 | Discharge Summary ---
Discharge Information Date of admission: 09/07/17 19:29 Anticipated date of discharge: 09/11/17 Attending Physician: Chase Gaines MD Primary care physician: Masha Perez APRN Consults: Gas Appliance Mechanic Consult Diabetic Training: Monitoring Diabetes Physician Consuly: Catherine Bergeron Reason For Exam: insomnia, ?depression Physician Consult: Zac Mcclain Reason For Exam: possible chf RT for tobacco cessation - Discharge Diagnosis (1) DM2 (diabetes mellitus, type 2) Status: Acute (2) Acute kidney injury Status: Acute (3) Dehydration Status: Acute (4) HTN (hypertension) Status: Acute (5) Hyperkalemia Status: Acute Discharge diagnosis Hyperglycemia with uncontrolled type 2 diabetes mellitus Associated conditions and complications Acute kidney injury - resolved Stage II Chronic Kidney Disease Hyperkalemia (POA) - resolved Hypokalemia (Not POA) - resolved Moderate ischemic cardio myopathy LVEF of 35%/chronic systolic heart failure compensated Sinus node arrest 4.5 second pause appears asymptomatic Abnormal EKG - 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 Appears GI Nausea and vomiting - Resolved Weight loss of at least 6 kg in the past 1 month Insomnia-severe Possible depression Elevated liver enzymes with history of hepatic steatosis History of alcoholism Tobacco addiction History of leaving AGAINST MEDICAL ADVICE - Procedures Procedures: Date of Exam: 09/08/17 Type of Exam: US ECHO doppler complete FINDINGS 1. CARDIAC CHAMBERS: All cardiac chamber measurements are normal. RV size and contractility appear normal. Aortic root diameter is normal. 2. LEFT VENTRICLE: Analysis reveals [id number] concentric LVH. Wall motion analysis is abnormal. Posterior and inferior wall appear markedly hypokinetic to akinetic. Papillary muscle hypertrophy is present. The anteroseptal wall appears hypokinetic as well. The anterior wall exhibits mild- to-moderate hypokinesis. The inferior wall exhibits increased echogenicity. There is left ventricular systolic dysfunction suggested to be ischemic based on regional wall motion abnormality. Accurate LVEF may be difficult to get but it is estimated about 35%. RV contractility appears normal. The best moving segments of the left ventricle are in the inferolateral wall/LCX territory. 3. VALVES: Aortic and mitral valves exhibit minimal sclerosis, normal valve excursion. Tricuspid valve structure and motion appear normal, normal valve excursion. 4. DOPPLER: Trace regurgitation involving mitral and tricuspid valves. Mild diastolic dysfunction grade 1/4 is present. Normal flow velocities. Trivial whiff of aortic regurgitation. 5. No evidence of intracardiac masses, thrombi, vegetations or shunts. IMPRESSION 1. Moderate cardiomyopathy suggested to be ischemic based on regional wall motion abnormality as described above with global LVEF estimated about 35%. 2. Mild diastolic dysfunction. 3. No significant valvular dysfunction. 4. Limited subcostal views. IVC is not well seen. - Laboratory Labs: Admit Lab 09/07/17 18:33 WBC 7.7 Hgb 14.2 Hct 42.2 MCV 73.3 L Plt Count 190 Neut % (Auto) 82.7 H Lymph % (Auto) 10.0 L Burnett % (Auto) 7.2 Admit Lab 09/07/17 09/07/17 18:33 18:33 Sodium 137 Potassium 5.1 H Chloride 95 L Carbon Dioxide 22 Anion Gap 20 H BUN 92.0 H* Creatinine 3.1 H GFR Calculation 21 BUN/Creatinine Ratio 30 H Glucose 555 H Hemoglobin A1c 10.8 H Calculated Osmolality 317 H Calcium 10.1 Total Bilirubin 1.00 AST 86 H ALT 151 H Alkaline Phosphatase 130 H Troponin I 0.036 Total Protein 8.9 H Albumin 5.1 H Globulin 3.8 H Albumin/Globulin Ratio 1.3 Vitamin B12 Level 09/08/17 04:26 Vitamin B12 837 Thyroid tests 09/08/17 09/08/17 04:26 04:26 TSH 0.04 L Free T4 1.45 Lipid Profile 09/09/17 04:16 Triglycerides 179 H Cholesterol 168 LDL Cholesterol, Calc 89.2 VLDL Cholesterol 35.8 H HDL Cholesterol 43 Cholesterol/HDL Ratio 3.9 09/11/17 04:27 09/11/17 04:27 Liver enzymes at discharge 09/11/17 04:27 Total Bilirubin 0.50 AST 92 H ALT 108 H Alkaline Phosphatase 72 - Radiology Radiology: Date of Exam: 09/07/17 PROCEDURE: CHEST 2-VIEWS UPRIGHT (PA & LAT) FINDINGS: The lungs are clear without evidence of focal abnormal airspace opacity. There is no pleural effusion or pneumothorax. The heart size, mediastinal contours and pulmonary vascularity are within normal limits. There is no significant skeletal abnormality. IMPRESSION: No acute cardiopulmonary disease. Date of Exam: 09/09/17 PROCEDURE: NM gastric emptying study Findings: Radiotracer is seen to progress normally from the gastric fundus to the antrum and into the small bowel. The calculated T-1/2 gastric emptying time is rapid at approximately 26 minutes (normal range 45-110 minutes). Impression: Rapid gastric emptying of uncertain significance. No evidence of gastroparesis. History of Present Illness HPI: The patient is a pleasant 61-year-old man with diabetes type 2 diagnosed at age 25. He is a somewhat vague historian. He states his blood sugars have been high at least since Tuesday and possibly longer. He states he has not been able to eat for one week. He states he is even vomiting up water. He states he has not been able to sleep for 1 week. He states his primary care provider thinks he has depression. He states he does feel lonely but he is not certain if he is depressed or not. He denies any anxiety or suicidal ideation. He is on trazodone 200 mg at night but is still not sleeping. The patient states he has no appetite. He denies any abdominal pain. He has history of pancreatitis caused by alcohol in February 2017. He states he quit drinking shortly after that hospitalization. He presented to the emergency room last night and was found to have blood sugar over 500, 92, creatinine 3.1, and potassium of 5.1. He was not in DKA. He was started on IV fluids. He has had good urine output. Potassium has normalized. BUN and creatinine are improving. He was able to eat a little bit for breakfast today. He was given trazodone and lorazepam last night and still was not able to sleep. He has lost 6 kg in the past 1 month secondary to poor appetite. For complete details of the H&P refer to that document. Objective Vital signs: Temperature 97.4 F 09/11/17 14:53 Pulse Rate 94 09/11/17 14:53 Respiratory Rate 18 09/11/17 14:53 Blood Pressure 120/75 09/11/17 14:53 Pulse Oximetry 97 09/11/17 14:53 Height/Weight/BMI: Height 1.75 m Weight 79.1 kg Body Mass Index 24.1 Hospital Course This is a general summary of the patient's hospital course. For more details refer to the complete medical record. Hospital course: Assessment and Plan: 1. DM2, poorly controlled with subsequent dehydration leading to 2. Levemir 50units tonight and should likely be on more long acting and less short. Check A1C. Certainly has gastroparesis now too, and metoclopramide trial may be needed. 2. Dehydration and ZAID--NS aggressively and repeat AM labs. 3. Hyperkalemia due to 2 and lisinopril which should be held. 4. Essential HTN--see 3. 5. Tobacco abuse--needs to stop. Amazing has not had ACS or CVA already. 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 Camacho Lab on admission was significant for BUN 92, creatinine 3.1, potassium 5.1, AST 86, ALT 151, alkaline phosphatase 1:30. Hemoglobin A1c is 10.1. Troponin 0.036 which is normal Repeat labs this morning shows BUN 57, creatinine 2.1, glucose 217 down from 555 last night. Impression Hyperglycemia with uncontrolled type 2 diabetes mellitus Acute kidney injury-improving Possible chronic kidney disease Hyperkalemia-resolved Abnormal EKG-possible acute ID, asymptomatic Reported abnormal echocardiogram with ejection fraction of 35% Nausea and vomiting-possible diabetic gastroparesis Weight loss of at least 6 kg in the past 1 month Insomnia-severe Possible depression Elevated liver enzymes with history of hepatic Steatosis History of alcoholism Tobacco addiction History of leaving AGAINST MEDICAL ADVICE Plan Monitor Accu-Cheks closely and increase insulin as needed Patient refuses to see an open shank coverer at this time Diabetes education consultation with nurse, patient is agreeable to this Regarding acute kidney injury, continue IV fluids but at a lower rate, monitor basic metabolic profile Regarding abnormal EKG, will repeat EKG now, place on telemetry, repeat troponins Regarding nausea and vomiting-we'll obtain a gastric emptying study tomorrow, start Reglan before meals meals for possible diabetic gastroparesis, consider addition of Remeron which can help with diabetic gastroparesis symptoms and may also help with sleep and/or depression Consult Dr. Bergeron regarding possible depression, and to determine if Remeron can be added to the patient's current trazodone Check TSH and B 12 regarding peripheral neuropathy CMP tomorrow regarding elevated liver enzymes Overall, the patient appears to be improving since last night. He is somewhat resistant to my recommendations for further evaluation with specialists and further testing to determine the cause of his nausea and vomiting, poor sleep, poorly controlled diabetes. He has a history of leaving AGAINST MEDICAL ADVICE. He states when he was here the last time he thought he had too many tests and to many people were seeing him in order to make more money. I discussed with him that my goal is to control his diabetes well, decrease his likelihood of future complications such as heart disease, stroke, kidney failure, and amputation. My other goals are to help with his insomnia, possible depression, and inability to eat and drink. I discussed with him that evaluating these issues in determining the best treatment here in the hospital with help keep him healthy and hopefully prevent further hospitalizations. Greater than 1 hour spent seeing and evaluating the patient and determining care plan. I did discuss the patient with Dr. Bergeron. She stated his trazodone could be increased to 150 or 200 mg at at bedtime. It looks like at home he had been on 200 mg at at bedtime. She agreed that he could start on Remeron 7.5 mg tonight. This will be initiated. Will increase his trazodone to 150 mg at at bedtime. The patient was found to have a low TSH of 0.04 and borderline tachycardia. Free T4 is pending and should be back tomorrow. If he is hyperthyroid, I would recommend endocrinology consultation. Regarding low ejection fraction noted on echocardiogram in February 2017, will repeat echocardiogram today and consult Dr. Mcclain. I talked with him and he will see the patient tomorrow. He did recommend initiating low-dose Coreg 3.125 mg by mouth twice a day. I did start the patient on aspirin 325 mg once daily. Will check lipid panel in the morning. Gastric emptying study will be done tomorrow. Patient updated on plans. 09/09/17 Creatinine improved to 1.2. Potassium decreased to 3.5. BP still with elevation. Gastric emptying study showing normal emptying. Blood sugar with decrease this afternoon. Will decreased Levemir to 40mg at night and mealtime insulin to 26 units ( hold if not eating, as oral drive decreased). With BP and HR running high will increase Coreg to 6.25mg BID with meals. Dr Mcclain anticipates adding Imdur and Hydralazine for BP control. Dr Mcclain does recommend against ABDULKADIR/ARB due to his ZAID and hyperkalemia. Did have episode of ZAID and hyperkalemia when he was admitted for DKA earlier this year. Dr Mcclain also feels cardiac cath would be of benefit-will be discussing with patient about timing of this procedure. Lipitor 20mg recommended by Dr Mcclain-LFT trending down; will recheck LFT tomorrow and possible start Lipitor tomorrow. Oral potassium 20meg to help low potassium. Recheck potassium and magnesium in am. RT for tobacco cessation. Encourage ambulation - TID in room/halls with nursing. 09/10/17 Creatinine stable at 1.2. Potassium low at 3.5. Magnesium 1.5. Additional 20mEg potassium today and MagOx 400mg x2. Oral drive improving - sugars with elevation. Will increase Levemir to 42 units at night. Sleeping at night still problematic. Will continue with Trazodone and Remeron. Blood pressure showing improvement with Imdur 30mg ac breakfast and Hydralazine 25[address] T[address]WM[address] Mcclain anticipating cath on Tuesday. Patient also needing Zoll Life-Vest. Did have long discussion with patient about cath and life vest. Discussed reasoning behind cath, how it is done, and potential complications. Discussed rational for Life-Vest and potential benefits. Questions answer. Patient voices agreement with these interventions. Liver enzymes still with elevation - will recheck tomorrow. Hold on initiating Lipitor for now. Recheck CMP and Mg in am secondary to medication use, resolving ZAID, and hypomagnesemia. Continue with supportive care. 09/11/17 Patient is feeling well today. Breathing without difficulty. No chest pain. Eating well-not having nausea or ab pain. Urinating well. No f/c. Reports he has though over the heart cath and life vest. While he knows these interventions are important, he does not feel he can take on the financial burden. Does not want to have cath on Tuesday. Does understand potential risks associated with not proceeding (possible sudden cardiac from arrhythmia). Is willing to continue with medications initiated during this hospitalization. Voices desire to increase his activities-plans light activities such as walking or biking. Anticipate avoidance of alcohol. When discussed about smoking cessation, he reports 'that will be the challenge.' Lab doing well: Creatinine stable at 1.1. Potassium normalized at 4.0. Magnesium 1.6. Dr Mcclain ordered 2 grams of IV magnesium to help maintain magnesium level. Will continue oral MagOx 400mg once a day. Liver enzymes still with elevation: AST [address] Mcclain does recommend low dose statin medication (Lipitor 20mg) Will need monitoring of liver enzymes. Oral drive improving - sugars still showing elevation. Will increase Levemir to 45 units at night. Discussed with patient about monitoring blood sugars at home. Encourage diabetic diet with minimization of carbohydrate to help his glycemia control. Sleeping improving. Will continue with Trazodone and Remeron. Blood pressure stable with Imdur 30mg ac breakfast, Hydralazine 25mg TIDWM, and Coreg 6.25mg BIDWM. Lisinopril has been stopped secondary to repeated episodes of ZAID and Hyperkalemia. Discussed at length with patient about benefits of undergoing cath and obtaining life vest. Discussed risks of not proceeding. He adamantly feels he can not take on that financial burden at this time. Does polity decline these interventions. Discussed with Dr Mcclain. While not the best treatment approach, Dr Mcclain will see patient in outpatient setting to continue the dialogue. With patient declining for heart cath and life vest, do feel he is medically stable for discharge to home. Encourage alcohol and tobacco avoidance. [facility] week Will need recheck CMP and Mg at that time secondary to elevated liver enzymes and medication use. F/U with Dr Mcclain in 2 weeks for cardiac reevaluation. See orders for details. Time spent with patient: discharge greater than 30 minutes DVT Prophylaxis: Lovenox Discharge Plan - Discharge Disposition Discharge Date: 09/11/17 Disposition: Discharged Home, Self-Care *Condition: Stable Reason For Visit (Visit label in EMR): acute renal failure/dehydration - Discharge Medications *Discharge Medications: New Carvedilol [Coreg] 6.25 mg PO BIDWM #60 tab Hydralazine [Apresoline] 10 mg PO TIDWM #90 tab Isosorbide Mononitrate ER [Imdur] 30 mg PO ACB #30 tab Magnesium Oxide [Magox] 400 mg PO DAILY #30 tab Mirtazapine [Remeron] 7.5 mg PO HS #30 tab Aspirin [ASA] 325 mg PO DAILY tab Atorvastatin Calcium 20 mg PO HS #30 tab Insulin Detemir [Levemir] 45 unit SQ HS vial Continue Insulin Aspart [Novolog Flexpen] 30 unit SQ AC15 #75 Trazodone [Desyrel] 200 mg PO HS Discontinued Lisinopril [Prinivil] 10 mg PO DAILY Insulin Detemir [Levemir] 40 unit SQ HS - Discharge Packet/Instructions *Diet: 2000 KCAL ADA low sodium. Avoid alcohol. *Activity: As tolerated. Walking and biking good exercise. Start slow and gradually build up. Stop activities if you become short or air or have any chest pain or pressure. *Pain Management/Treatment: Tylenol spairingly. *Wound Care: n/a Additional Instructions: MagOx (magnesium oxide) may be cheaper over the counter - check the prices. *Expected Signs/Symptoms: Improvement of blood pressure and blood sugars. *Notify Physician if: Chest pressure, pain, or heaviness. Increasing difficulty breathing. *During Business Hours Contact: [facility] *After Business Hours Contact: Call [facility] [place] and have your care provider or covering provider paged. *Pending Lab/Results: No Pending Lab - Referrals/Follow Up *Referrals/Follow Up: Masha Perez, DUST OPERATOR [Family Provider] - 1 Week (Hospital follow up for ZAID. Findings of Systolic heart failure. Recommend rechecking CMP and Magnesium at that time. ) Zac Mcclain MD [Physician] - 2 Weeks (Heart follow up. ) - Patient Handouts Patient Handouts: Dehydration (GEN) - Dismissal Complete Discharge Instructions are:: Complete Attestation Narriative - Attestation Attestation Narrative: 09/11/17 16:34 I have independently interviewed and examined patient prior to discharge. See my progress note from today for details. Medically stable for discharge to home.
[2017-09-11] MEDS ORDERED: INSULIN DETEMIR 100unit/ml INJECTION SQ SCH (21:00)
[2017-09-12] MEDS ORDERED: NS 1,000 ML IV SCH (06:00)
== END 2017-09-11 17:03 | disposition home or self-care (01) | DRG 638 ==
LOC: ED 17:25 → MED 19:29 → SUATTDRO 19:29 → MED 20:00
PROVIDERS: ADMIT Hospitalist; ATTEND Hospitalist